=== PATIENT | male | born 1980 | race Caucasian/White ===

== ENCOUNTER 2016-10-31 14:47 | Inpatient (IN) | payer MEDICARE, OTHER ==
[~2016-10-31] VITALS: Ht 170.2 cm; Wt 94.4 kg
--- NOTE | 2016-10-31 15:17 | PHYS DOC ---
Adult General Chief Complaint Chief Complaint: SEIZURE HPI HPI Patient is a 36 year old male who presents with head neck and left rib pain after seizure. Patient has had seizures since a traumatic brain injury that usually are well controlled. His normal aura is short-term memory problems and headache. This afternoon he started to develop some short-term memory problems and headache while he was at the grocery store but did make it home. After arriving home he had onset of tonic-clonic activity lasted about 10 seconds that was witnessed by the . said that during the seizure he fell off the couch and struck his forehead midline on the table. He had approximate 10 minute postictal phase. On presentation to the emergency department the patient complains mostly of frontal headache pain with some mild midline C1-C2 neck pain. Patient also complains of some left lateral chest wall tenderness. Patient has had no recent fevers chills vomiting diarrhea visual changes or change in medications. Patient did have loss of control of his urine during the seizure.Patient had a short seizure while in radiology getting chest and rib xrays. Review of Systems Review of Systems Constitutional: Denies fever or chills Eyes: Denies change in visual acuity, redness, or eye pain HENT: Denies nasal congestion or sore throat Respiratory: Denies cough or shortness of breath Cardiovascular: No chest pain or palpitations other than left lateral chest wall GI: Denies abdominal pain, nausea, vomiting, bloody stools or diarrhea : Denies dysuria or hematuria . But did have loss of control of urine during seizure. Musculoskeletal: Denies back pain or joint pain other than neck and left rib cage Integument: Denies rash or skin lesions Neurologic: Denies focal weakness or sensory changes. Positive headache. Endocrine: Denies polyuria or polydipsia Current Medications Current Medications Current Medications Medications (Trade) Dose Ordered Sig/Vilma Start Time Stop Time Status Last Admin Dose Admin Hydromorphone HCl (Dilaudid) 2 mg STK-MED ONCE 10/31/16 16:19 10/31/16 16:20 DC Lorazepam (Ativan) 2 mg STK-MED ONCE 10/31/16 15:27 10/31/16 15:28 DC Allergies Allergies Allergies Coded Allergies Type Severity Reaction Last Updated Verified bupropion Allergy Unknown seizures 10/31/16 Yes Physical Exam Physical Exam Constitutional: Well developed, well nourished, mild acute distress, non-toxic appearance. HENT: Normocephalic, midline frontal head trauma , bilateral external ears normal, oropharynx moist, no oral exudates, nose normal. Eyes: PERRLA, EOMI, conjunctiva normal, no discharge. Neck: Normal range of motion, C2 midline tenderness, supple, no stridor. Cardiovascular:Heart rate regular rhythm, no murmur Lungs & Thorax: Bilateral breath sounds clear to auscultation. Left lateral inferior chest wall tenderness with no obvious deformity. Abdomen: Bowel sounds normal, soft, no tenderness, no masses, no pulsatile masses. Skin: Warm, dry, no erythema, no rash. Back: No tenderness, no CVA tenderness. Extremities: No tenderness, no cyanosis, , ROM intact, no edema. Prior left ankle repair. Neurologic: Alert and oriented X 3, normal motor function, normal sensory function, no focal deficits noted. Psychologic: Affect normal, judgement normal, mood normal. Current Patient Data Vital Signs Vital Signs Date Time Temp Pulse Resp B/P Pulse Ox O2 Delivery O2 Flow Rate FiO2 10/31/16 17:17 86 20 144/88 95 Room Air 10/31/16 14:47 97.4 97.4 Lab Values Laboratory Tests Test 10/31/16 17:27 White Blood Count 10.2x10^3/uL (4.0-11.0) Red Blood Count 4.65x10^6/uL (4.30-5.70) Hemoglobin 13.7g/dL (13.0-17.5) Hematocrit 41.0% (39.0-53.0) Mean Corpuscular Volume 88fL (79-100) Mean Corpuscular Hemoglobin 29pg (25-35) Mean Corpuscular Hemoglobin Concent 33g/dL (31-37) Red Cell Distribution Width 15.0% (11.5-14.5) H Platelet Count 190x10^3/uL (140-400) Neutrophils (%) (Auto) 48% (31-73) Lymphocytes (%) (Auto) 42% (24-48) Monocytes (%) (Auto) 7% (0-9) Eosinophils (%) (Auto) 2% (0-3) Basophils (%) (Auto) 1% (0-3) Neutrophils # (Auto) 4.9x10^3uL (1.8-7.7) Lymphocytes # (Auto) 4.3x10^3/uL (1.0-4.8) Monocytes # (Auto) 0.7x10^3/uL (0.0-1.1) Eosinophils # (Auto) 0.2x10^3/uL (0.0-0.7) Basophils # (Auto) 0.1x10^3/uL (0.0-0.2) Segmented Neutrophils % 43% (35-66) Band Neutrophils % 1% (0-9) Lymphocytes % 42% (24-48) Atypical Lymphocytes % (Manual) 3% (0-0) H Monocytes % 6% (0-10) Eosinophils % 2% (0-5) Metamyelocytes % 2% (0-0) H Myelocytes % 1% (0-0) H Nucleated Red Blood Cells 1 Platelet Estimate Adequate (ADEQUATE) Sodium Level 146mmol/L (136-145) H Potassium Level 3.7mmol/L (3.5-5.1) Chloride Level 108mmol/L (98-107) H Carbon Dioxide Level 27mmol/L (21-32) Anion Gap 11 (6-14) Blood Urea Nitrogen 15mg/dL (8-26) Creatinine 0.8mg/dL (0.7-1.3) Estimated GFR (Cockcroft-Gault) 108.8 BUN/Creatinine Ratio 19 (6-20) Glucose Level 84mg/dL (70-99) Calcium Level 8.3mg/dL (8.5-10.1) L Total Bilirubin 0.3mg/dL (0.2-1.0) Aspartate Amino Transferase (AST) 43U/L (15-37) H Alanine Aminotransferase (ALT) 81U/L (16-63) H Alkaline Phosphatase 73U/L (46-116) Total Protein 6.5g/dL (6.4-8.2) Albumin 3.2g/dL (3.4-5.0) L Albumin/Globulin Ratio 1.0 (1.0-1.7) Laboratory Tests 10/31/16 17:27 Laboratory Tests 10/31/16 17:27 EKG EKG [] Radiology/Procedures Radiology/Procedures [] Course & Med Decision Making Course & Med Decision Making Pertinent Labs and Imaging studies reviewed. (See chart for details) [] Dragon Disclaimer Dragon Disclaimer This electronic medical record was generated, in whole or in part, using a voice recognition dictation system. Departure Departure Impression: Primary Impression: Seizure Additional Impression: Headache Disposition: ADMITTED INPATIENT Admitting Physician: Jia Valdez Condition: IMPROVED Scripts Divalproex Sodium (Depakote Er)500 Mg Tab.er.24h1,500 Mg PO BID #120 EA Prov:SEEMA WHARTON MD 11/01/16 Carbamazepine 200 Mg Donilm910 Mg PO BID #60 TAB Prov:SEEMA WHARTON MD 11/01/16 Problem Qualifiers Additional Impression: Headache Headache type: post-traumatic Headache chronicity pattern: acute headache Intractability: not intractable Qualified Code: G44.319 - Acute post- traumatic headache, not intractable JAILENE DURAND MD Oct 31, 2016 15:17
[2016-10-31] MEDS ORDERED: LORAZEPAM 2 MG/ML VIAL ONE (15:27)
--- NOTE | 2016-10-31 15:48 | RAD ---
EXAM: Head and cervical spine CT without contrast. HISTORY: Seizure. TECHNIQUE: Computed tomographic images of the head and cervical spine were obtained without contrast. One or more of the following individualized dose reduction techniques were utilized for this examination: 1. Automated exposure control. 2. Adjustment of the mA and/or kV according to patient size. 3. Use of iterative reconstruction technique. COMPARISON: None. FINDINGS: Head: There is no acute hemorrhage. There is no mass effect or midline shift. There is no hydrocephalus. The sow and white matter differentiation pattern is intact. There is a right maxillary sinus mucous retention cyst. There is mild ethmoid sinus because of thickening. The mastoid air cells are clear. No calvarial lesion is seen. Cervical spine: There is no listhesis. The vertebral bodies are normal in height and the disc spaces are preserved. No fracture is seen. There is no suspicious osseous lesion. There is no significant foraminal or central canal stenosis. IMPRESSION: No acute intracranial finding or evidence of acute cervical spine trauma.
--- NOTE | 2016-10-31 15:55 | ACF ---
Admission Forms Criteria SEIZURE Clinical Indications for Admission to Inpatient Care (Place 'X' for any and all applicable criteria): Admission is indicated for seizure and ANY ONE of the following(1)(2)(3)(4)(5): [X]I. Inpatient admission required rather than observation care (Also use Seizure: Observation Care Criteria as appropriate) because of ANY ONE of the following: [ ]a) Altered mental status that is severe or persistent [ ]b) New focal neurologic deficit that is severe or persistent [ ]c) Metabolic disorder (eg, hypoglycemia, hyponatremia) that is severe or persistent [ ]d) Recurrent seizure [ ]e) Outpatient antiseizure regimen cannot be established (eg , patient cannot tolerate medication, initiation requires inpatient care) [ ]f) Need for ongoing intravenous infusion of antiseizure medication [ ]g) Cardiac arrhythmias of immediate concern [ ]h) Cerebral bleeding, hydrocephalus, or vasospasm monitoring (14) [ ]i) Increased intracranial pressure or cerebral edema monitoring (15) [X]j) Other treatment or monitoring requiring inpatient admission [ ]II. Status epilepticus [A] or repetitive seizures not controlled with emergent treatment (6)(8) [ ]III. Brain disorder (eg, tumor, edema, and hydrocephalus) that requiring monitoring or intervention available only at inpatient level of care. [ ]IV. Brain insult (eg, severe trauma, stroke, drug toxicity, or withdrawal) that requires monitoring or intervention available only at inpatient level of care (10)(11) Extended stay beyond goal length of stay may be needed for (22) [ ]a) Complications of status epilepticus [ ]b) Refractory status epilepticus [ ]c) Etiology-specific therapy for conditions such as HORTICULTURALIST infection, head injury,eclampsia, severe metabolic abnormalities, and brain tumor [ ]d) Residual neurologic damage, [ ]e) Initiation of significant change to anticonvulsant treatment [ ]f) Older patients (65 years or older) [ ]g) Patient requiring intubation (eg, to protect airway) The original [employer] content created by [employer] has been revised. The portions of the content which have been revised are identified through the use of italic text or in bold, and [facility] [employer] has neither reviewed nor approved the modified material. All other unmodified content is copyright [facility] [employer]. Please see references footnoted in the original [facility] edition 2016 Admission Criteria Met?: Yes SARAH JONES Oct 31, 2016 15:55
[2016-10-31] MEDS ORDERED: HYDROMORPHONE 2 MG/ML VIAL. ONE (16:19)
[2016-10-31] MEDS ORDERED: HYDROMORPHONE 2 MG/ML VIAL. IV ONE ×3 (16:30→18:45)
--- NOTE | 2016-10-31 16:54 | RAD ---
Exam: PA chest and left rib radiographs History: Trauma, seizure, fall with pain left ribs. Comparison: None. Findings: Cardiomediastinal silhouette is within normal limits for size. Bilateral lung lynn are free of focal infiltrate. No pleural effusion is seen. No displaced rib fractures are identified. Cholecystectomy clips are seen. Impression: No acute cardiopulmonary process.
[2016-10-31 17:36] LABS: BASO # 0.1 x10^3/uL (0.0-0.2); BASO % 1 % (0-3); EOS % 2 % (0-3); HEMOGLOBIN 13.7 g/dL (13.0-17.5); LYMPH # 4.3 x10^3/uL (1.0-4.8); LYMPH % 42 % (24-48); MEAN CORPUSCULAR HEMOGLOBIN 29 pg (25-35); MEAN CORPUSCULAR HGB CONC 33 g/dL (31-37); MEAN CORPUSCULAR VOLUME 88 fL (79-100); MONO % 7 % (0-9); NEUT % 48 % (31-73); PLATELET COUNT 190 x10^3/uL (140-400); RED BLOOD COUNT 4.65 x10^6/uL (4.30-5.70); WHITE BLOOD COUNT 10.2 x10^3/uL (4.0-11.0)
[2016-10-31] MEDS ORDERED: SERT100T8 PO (17:41)
[2016-10-31] MEDS ORDERED: DIVA500T9 PO (17:41)
[2016-10-31] MEDS ORDERED: NORT25CA PO (17:41)
[2016-10-31] MEDS ORDERED: DIAZEPAM10 MG PO (17:41)
[2016-10-31] MEDS ORDERED: LEVE750T13 PO (17:41)
[2016-10-31 17:53] LABS: CALCIUM 8.3 mg/dL (8.5-10.1); CREATININE 0.8 mg/dL (0.7-1.3); GFR 108.8; POTASSIUM 3.7 mmol/L (3.5-5.1)
[2016-10-31 17:58] LABS: ALBUMIN 3.2 g/dL (3.4-5.0); TOTAL BILIRUBIN 0.3 mg/dL (0.2-1.0); TOTAL PROTEIN 6.5 g/dL (6.4-8.2)
[2016-10-31 18:30] LABS: % EOS 2 % (0-5); NUCLEATED RBC 1; PLT ESTIMATE ADEQUATE (ADEQUATE)
[2016-10-31 19:50] VITALS: BP 113/86
[2016-10-31] MEDS ORDERED: HYDROCODONE/APAP 5/325MG TABLET. PO PRN (20:00)
[2016-10-31] MEDS ORDERED: ACETAMINOPHEN 325 MG TABLET. PO PRN (20:00)
[2016-10-31] MEDS ORDERED: LORAZEPAM 1 MG TABLET. PO PRN (20:00)
[2016-10-31] MEDS ORDERED: LORAZEPAM 2 MG/ML VIAL IV PRN (20:15)
[2016-10-31] MEDS: ONDANSETRON PF 4 MG/2 ML VIAL. IV PRN (20:21)
[2016-10-31 23:19] VITALS: BP 121/79
[2016-11-01 07:00] VITALS: BP 109/76
[2016-11-01] MEDS ORDERED: NORTRIPTYLINE 25 MG CAPSULE PO SCH (09:00)
[2016-11-01] MEDS ORDERED: LEVETIRACETAM 750 MG PO SCH (09:00)
[2016-11-01] MEDS ORDERED: SERTRALINE 50 MG TABLET. PO SCH ×2 (09:00)
[2016-11-01] MEDS ORDERED: DIVALPROEX EXTENDED RELEASE 500 MG TAB.ER.24H. PO SCH ×2 (09:00)
[2016-11-01] MEDS ORDERED: CARBAMAZEPINE 200 MG TABLET. PO SCH ×4 (09:00→21:00)
[2016-11-01] MEDS ORDERED: DIVALPROEX DELAYED RELEASE 500 MG TABLET.DR. PO SCH (09:00)
[2016-11-01] MEDS ORDERED: DIAZEPAM 5 MG TABLET PO SCH (09:00)
[2016-11-01] MEDS: ONDANSETRON PF 4 MG/2 ML VIAL. IV PRN (09:12)
--- NOTE | 2016-11-01 10:15 | PDOC2 ---
NEUROLOGY CONSULT Date of Admission Date of Admission DATE: 11/01/16 TIME: 10:07 Reason for Consult Reason for Consult: Epilepsy Referring Physician Referring Physician: Dr. Valdez Source Source: Caregiver, Chart review, Patient History of Present Illness History of Present Illness The patient is a 36-year-old right-handed male with posttraumatic epilepsy following traumatic brain injury while serving in the , 9 years ago. He had a skull fracture but did not require surgery. He has partial-complex and generalized convulsive seizures by description. He had 2 or 3 seizures yesterday. He is sleep deprived because his son is autistic and keeps him up. He denies noncompliance with medications, drugs, alcohol, or recent action. Usually he gets a headache after a seizure, but he also may have hit his head this time, so he does have a headache. Past Medical History CENTRAL NERVOUS SYSTEM: Seizure, Other (Traumatic brain injury) GI: Other ( anal fissure) Psych: Anxiety, Depression, Other ( posttraumatic stress disorder) Past Surgical History Past Surgical History: Other ( gastric sleeve) Family History Family History: No pertinent hx ( negative for epilepsy, parents are in good health) Social History Social History , disabled, no alcohol, tobacco, street drugs Current Medications Current Medications Current Medications Hydromorphone HCl (Dilaudid) 1 mg 1X ONCE IV Last administered on 10/31/16t 16 :23; Start 10/31/16 at 16:30; Stop 10/31/16 at 16:31; Status DC Lorazepam (Ativan) 2 mg STK-MED ONCE .ROUTE ; Start 10/31/16 at 15:27; Stop 10/05 at 15:28; Status DC Hydromorphone HCl (Dilaudid) 2 mg STK-MED ONCE .ROUTE ; Start 10/31/16 at 16:19 ; Stop 10/31/16 at 16:20; Status DC Hydromorphone HCl (Dilaudid) 1 mg 1X ONCE IV ; Start 10/31/16 at 18:15; Stop at 18:16; Status Cancel Hydromorphone HCl (Dilaudid) 1 mg 1X ONCE IV Last administered on 10/31/16t 18 :46; Start 10/31/16 at 18:45; Stop 10/31/16 at 18:46; Status DC Divalproex Sodium (Depakote) 500 mg DAILY PO ; Start 11/01/16 at 09:00; Stop at 09:00; Status DC Nortriptyline HCl (Pamelor) 25 mg DAILY PO Last administered on 11/01/16 09:12 ; Start 11/01/16 at 09:00 Diazepam (Valium) 10 mg DAILY PO Last administered on 11/01/16 09:14; Start at 09:00 Non-Formulary Medication 750 mg DAILY PO ; Start 11/01/16 at 09:00; Stop at 09:00; Status DC Sertraline HCl (Zoloft) 100 mg DAILY PO ; Start 11/01/16 at 09:00; Stop at 09:00; Status DC Acetaminophen/ Hydrocodone Bitart (Lortab 5/325) 1 tab PRN Q6HRS PRN PO PAIN Last administered on 11/01/16 04:36; Start 10/31/16 at 20:00 Acetaminophen (Tylenol) 650 mg PRN Q6HRS PRN PO MILD PAIN / TEMP Last administered on 11/01/16 09:12; Start 10/31/16 at 20:00 Ondansetron HCl (Zofran) 4 mg PRN Q6HRS PRN IV NAUSEA/VOMITING Last administered on 11/01/16 09:12; Start 10/31/16 at 20:00 Lorazepam (Ativan) 1 mg PRN Q4HRS PRN PO ANXIETY / AGITATION; Start 10/31/16 at 20:00; Stop 10/31/16 at 20:08; Status DC Lorazepam (Ativan) 2 mg PRN Q4HRS PRN IV ANXIETY / AGITATION Last administered on 10/31/16 20:21; Start 10/31/16 at 20:15 Divalproex Sodium (Depakote Er) 500 mg DAILY PO ; Start 11/01/16 at 09:00; Stop 11/01/16 at 09:00; Status DC Divalproex Sodium (Depakote Er) 1,500 mg BID PO Last administered on 11/01/16 09:12; Start 11/01/16 at 09:00 Sertraline HCl (Zoloft) 50 mg DAILY PO Last administered on 11/01/16 09:14; Start 11/01/16 at 09:00 Carbamazepine (Tegretol) 750 mg DAILY PO Last administered on 11/01/16 09:14; Start 11/01/16 at 09:00 Carbamazepine (Tegretol) 500 mg QHS PO ; Start 11/01/16 at 21:00 Active Scripts Active Reported Nortriptyline Hcl 25 Mg Capsule 25 Mg PO DAILY Sertraline Hcl 100 Mg Tablet 100 Mg PO DAILY Levetiracetam 750 Mg Tab.er.24h 750 Mg PO DAILY Diazepam 10 Mg Tablet 10 Mg PO DAILY Divalproex Sodium 500 Mg Tablet.dr 500 Mg PO DAILY Allergies Allergies: Coded Allergies: venlafaxine (Verified Allergy, Severe, Seizures, 10/31/16) bupropion (Verified Allergy, Unknown, seizures, 10/31/16) ROS Review of System Negative for fevers, chills, weight loss, shortness of breath, chest pain, indigestion, hematochezia, melena, dysuria. Full 14-point review systems is negative. Physical Exam Physical Examination PHYSICAL EXAMINATION: Vital signs: see above. General appearance is normal and in no acute distress. HEENT: Normocephalic and nontraumatic. Eyes, nose, ears, and throat are unremarkable. Neck is supple. No lymphadenopathy. No bruits are heard over the carotid artery. No crepitus. NEUROLOGICAL EXAMINATION: Mental Status Examination: Alert. Oriented to time, place, and person. Answers questions and follows commends. Speech is hesitant and he has trouble recounting his history. Pupils are equal round and reactive to light and accommodation. Funduscopic exam: No papilledema. Extraocular movements are intact. Visual field exam shows no defect on the direct confrontation. No motor or sensory deficits on the facial exam. Uvula in the midline and the soft palate elevated symmetrically. No deviation of the tongue to any direction. Gross hearing is normal. Shoulder shrug normal. Muscle tone is normal. Muscle strength is 5. Deep tendon reflexes are 2+ all around. Plantar reflex is with flexion response bilaterally. [id number] test performance is accurate. Alternative movements are accurate. Gait not tested. Sensory exam shows no deficits. No cerebellar signs are elicited. Vitals VITALS Vital Signs Date Time Temp Pulse Resp B/P Pulse Ox O2 Delivery O2 Flow Rate FiO2 11/01/16 07:00 97.9 87 16 109/76 99 Room Air 97.9 Labs Labs Laboratory Tests Test 10/31/16 17:27 White Blood Count 10.2x10^3/uL (4.0-11.0) Red Blood Count 4.65x10^6/uL (4.30-5.70) Hemoglobin 13.7g/dL (13.0-17.5) Hematocrit 41.0% (39.0-53.0) Mean Corpuscular Volume 88fL (79-100) Mean Corpuscular Hemoglobin 29pg (25-35) Mean Corpuscular Hemoglobin Concent 33g/dL (31-37) Red Cell Distribution Width 15.0% (11.5-14.5) Platelet Count 190x10^3/uL (140-400) Neutrophils (%) (Auto) 48% (31-73) Lymphocytes (%) (Auto) 42% (24-48) Monocytes (%) (Auto) 7% (0-9) Eosinophils (%) (Auto) 2% (0-3) Basophils (%) (Auto) 1% (0-3) Neutrophils # (Auto) 4.9x10^3uL (1.8-7.7) Lymphocytes # (Auto) 4.3x10^3/uL (1.0-4.8) Monocytes # (Auto) 0.7x10^3/uL (0.0-1.1) Eosinophils # (Auto) 0.2x10^3/uL (0.0-0.7) Basophils # (Auto) 0.1x10^3/uL (0.0-0.2) Segmented Neutrophils % 43% (35-66) Band Neutrophils % 1% (0-9) Lymphocytes % 42% (24-48) Atypical Lymphocytes % (Manual) 3% (0-0) Monocytes % 6% (0-10) Eosinophils % 2% (0-5) Metamyelocytes % 2% (0-0) Myelocytes % 1% (0-0) Nucleated Red Blood Cells 1 Platelet Estimate Adequate (ADEQUATE) Sodium Level 146mmol/L (136-145) Potassium Level 3.7mmol/L (3.5-5.1) Chloride Level 108mmol/L (98-107) Carbon Dioxide Level 27mmol/L (21-32) Anion Gap 11 (6-14) Blood Urea Nitrogen 15mg/dL (8-26) Creatinine 0.8mg/dL (0.7-1.3) Estimated GFR (Cockcroft-Gault) 108.8 BUN/Creatinine Ratio 19 (6-20) Glucose Level 84mg/dL (70-99) Calcium Level 8.3mg/dL (8.5-10.1) Total Bilirubin 0.3mg/dL (0.2-1.0) Aspartate Amino Transf (AST/SGOT) 43U/L (15-37) Alanine Aminotransferase (ALT/SGPT) 81U/L (16-63) Alkaline Phosphatase 73U/L (46-116) Total Protein 6.5g/dL (6.4-8.2) Albumin 3.2g/dL (3.4-5.0) Albumin/Globulin Ratio 1.0 (1.0-1.7) Laboratory Tests Test 10/31/16 17:27 White Blood Count 10.2x10^3/uL (4.0-11.0) Red Blood Count 4.65x10^6/uL (4.30-5.70) Hemoglobin 13.7g/dL (13.0-17.5) Hematocrit 41.0% (39.0-53.0) Mean Corpuscular Volume 88fL (79-100) Mean Corpuscular Hemoglobin 29pg (25-35) Mean Corpuscular Hemoglobin Concent 33g/dL (31-37) Red Cell Distribution Width 15.0% (11.5-14.5) Platelet Count 190x10^3/uL (140-400) Neutrophils (%) (Auto) 48% (31-73) Lymphocytes (%) (Auto) 42% (24-48) Monocytes (%) (Auto) 7% (0-9) Eosinophils (%) (Auto) 2% (0-3) Basophils (%) (Auto) 1% (0-3) Neutrophils # (Auto) 4.9x10^3uL (1.8-7.7) Lymphocytes # (Auto) 4.3x10^3/uL (1.0-4.8) Monocytes # (Auto) 0.7x10^3/uL (0.0-1.1) Eosinophils # (Auto) 0.2x10^3/uL (0.0-0.7) Basophils # (Auto) 0.1x10^3/uL (0.0-0.2) Segmented Neutrophils % 43% (35-66) Band Neutrophils % 1% (0-9) Lymphocytes % 42% (24-48) Atypical Lymphocytes % (Manual) 3% (0-0) Monocytes % 6% (0-10) Eosinophils % 2% (0-5) Metamyelocytes % 2% (0-0) Myelocytes % 1% (0-0) Nucleated Red Blood Cells 1 Platelet Estimate Adequate (ADEQUATE) Sodium Level 146mmol/L (136-145) Potassium Level 3.7mmol/L (3.5-5.1) Chloride Level 108mmol/L (98-107) Carbon Dioxide Level 27mmol/L (21-32) Anion Gap 11 (6-14) Blood Urea Nitrogen 15mg/dL (8-26) Creatinine 0.8mg/dL (0.7-1.3) Estimated GFR (Cockcroft-Gault) 108.8 BUN/Creatinine Ratio 19 (6-20) Glucose Level 84mg/dL (70-99) Calcium Level 8.3mg/dL (8.5-10.1) Total Bilirubin 0.3mg/dL (0.2-1.0) Aspartate Amino Transf (AST/SGOT) 43U/L (15-37) Alanine Aminotransferase (ALT/SGPT) 81U/L (16-63) Alkaline Phosphatase 73U/L (46-116) Total Protein 6.5g/dL (6.4-8.2) Albumin 3.2g/dL (3.4-5.0) Albumin/Globulin Ratio 1.0 (1.0-1.7) Images Images CT studies Head: There is no acute hemorrhage. There is no mass effect or midline shift. There is no hydrocephalus. The sow and white matter differentiation pattern is intact. There is a right maxillary sinus mucous retention cyst. There is mild ethmoid sinus because of thickening. The mastoid air cells are clear. No calvarial lesion is seen. Cervical spine: There is no listhesis. The vertebral bodies are normal in height and the disc spaces are preserved. No fracture is seen. There is no suspicious osseous lesion. There is no significant foraminal or central canal stenosis. IMPRESSION: No acute intracranial finding or evidence of acute cervical spine trauma. Assessment/Plan Assessment/Plan Impression: [facility]. Imaging studies negative, anticonvulsant levels were not drawn. Recommendations: I wrote for the correct dose of his anticonvulsants per the patient's although I note that the carbamazepine dose is unusual Check anticonvulsant levels now, even though these will be trough levels Supportive care for his headaches Aim for discharge as soon as later today depending on how he feels. Thank you for letting me help of the patient's care. ANGELINE JEAN MD Nov 01, 2016 10:15
[2016-11-01 11:00] VITALS: BP 105/70
[2016-11-01 13:00] VITALS: BP 118/83
--- NOTE | 2016-11-01 14:41 | PDOC1 ---
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 per Neuro - partial-complex and generalized convulsive seizures fall and chest pain and wrist pain . Past Medical History Cardiovascular: No pertinent hx Pulmonary: No pertinent hx CENTRAL NERVOUS SYSTEM: Seizure, Other (Traumatic brain injury) GI: Other ( anal fissure) Psych: Anxiety, Depression, Other ( posttraumatic stress disorder) ENT: No pertinent hx Past Surgical History Past Surgical History: Other ( gastric sleeve) Family History Family History , 2 kids, disabled due to above Social History Smoke: No ALCOHOL: none Drugs: None Current Problem List Problem List Problems Medical Problems: (1) Headache Status: Acute (2) Seizure Status: Acute Problems: Current Medications Current Medications Current Medications Hydromorphone HCl (Dilaudid) 1 mg 1X ONCE IV Last administered on 10/31/16 16 :23; Start 10/31/16 at 16:30; Stop 10/31/16 at 16:31; Status DC Lorazepam (Ativan) 2 mg STK-MED ONCE .ROUTE ; Start 10/31/16 at 15:27; Stop 10/05 at 15:28; Status DC Hydromorphone HCl (Dilaudid) 2 mg STK-MED ONCE .ROUTE ; Start 10/31/16 at 16:19 ; Stop 10/31/16 at 16:20; Status DC Hydromorphone HCl (Dilaudid) 1 mg 1X ONCE IV ; Start 10/31/16 at 18:15; Stop at 18:16; Status Cancel Hydromorphone HCl (Dilaudid) 1 mg 1X ONCE IV Last administered on 10/31/16 18 :46; Start 10/31/16 at 18:45; Stop 10/31/16 at 18:46; Status DC Divalproex Sodium (Depakote) 500 mg DAILY PO ; Start 11/01/16 at 09:00; Stop at 09:00; Status DC Nortriptyline HCl (Pamelor) 25 mg DAILY PO Last administered on 11/01/16 09:12 ; Start 11/01/16 at 09:00 Diazepam (Valium) 10 mg DAILY PO Last administered on 11/01/16 09:14; Start at 09:00 Non-Formulary Medication 750 mg DAILY PO ; Start 11/01/16 at 09:00; Stop at 09:00; Status DC Sertraline HCl (Zoloft) 100 mg DAILY PO ; Start 11/01/16 at 09:00; Stop at 09:00; Status DC Acetaminophen/ Hydrocodone Bitart (Lortab 5/325) 1 tab PRN Q6HRS PRN PO PAIN Last administered on 11/01/16 04:36; Start 10/31/16 at 20:00 Acetaminophen (Tylenol) 650 mg PRN Q6HRS PRN PO MILD PAIN / TEMP Last administered on 11/01/16 09:12; Start 10/31/16 at 20:00 Ondansetron HCl (Zofran) 4 mg PRN Q6HRS PRN IV NAUSEA/VOMITING Last administered on 11/01/16 09:12; Start 10/31/16 at 20:00 Lorazepam (Ativan) 1 mg PRN Q4HRS PRN PO ANXIETY / AGITATION; Start 10/31/16 at 20:00; Stop 10/31/16 at 20:08; Status DC Lorazepam (Ativan) 2 mg PRN Q4HRS PRN IV ANXIETY / AGITATION Last administered on 10/31/16 20:21; Start 10/31/16 at 20:15 Divalproex Sodium (Depakote Er) 500 mg DAILY PO ; Start 11/01/16 at 09:00; Stop 11/01/16 at 09:00; Status DC Divalproex Sodium (Depakote Er) 1,500 mg BID PO Last administered on 11/01/16 09:12; Start 11/01/16 at 09:00 Sertraline HCl (Zoloft) 50 mg DAILY PO Last administered on 11/01/16 09:14; Start 11/01/16 at 09:00 Carbamazepine (Tegretol) 750 mg DAILY PO Last administered on 11/01/16 09:14; Start 11/01/16 at 09:00; Stop 11/01/16 at 12:35; Status DC Carbamazepine (Tegretol) 500 mg QHS PO ; Start 11/01/16 at 21:00; Stop 11/01/16 at 21:00; Status DC Carbamazepine (Tegretol) 750 mg QHS PO ; Start 11/01/16 at 21:00; Stop 11/01/16 at 21:00; Status DC Carbamazepine (Tegretol) 750 mg BID PO ; Start 11/01/16 at 21:00 Active Scripts Active Reported Nortriptyline Hcl 25 Mg Capsule 25 Mg PO DAILY Sertraline Hcl 100 Mg Tablet 100 Mg PO DAILY Levetiracetam 750 Mg Tab.er.24h 750 Mg PO DAILY Diazepam 10 Mg Tablet 10 Mg PO DAILY Divalproex Sodium 500 Mg Tablet.dr 500 Mg PO DAILY Allergies Allergies: Coded Allergies: venlafaxine (Verified Allergy, Severe, Seizures, 10/31/16) bupropion (Verified Allergy, Unknown, seizures, 10/31/16) ROS General: No: Appetite, Chills, Fatigue, Malaise, Night Sweats, Other PSYCHOLOGICAL ROS: No: Anxiety, Behavioral Disorder, Concentration difficultie , Decreased libido, Depression, Disorientation, Hallucinations, Hostility, Irritablity, Memory difficulties, Mood Swings, Obsessive thoughts, Other, Physical abuse, Sexual abuse, Sleep disturbances, Suicidal ideation Eyes: No Blurry vision, No Decreased vision, No Double vision, No Dry eyes, No Excessive tearing, No Eye Pain, No Itchy Eyes, No Loss of vision, No Other, No Photophobia, No Scotomata, No Uses contacts, No Uses glasses HEENT: No: Epistaxis, Heacaches, Hearing change, Nasal congestion, Nasal discharge, Oral lesions, Other, Sinus pain, Sneezing, Snoring, Sore Throat, Tinnitus, Vertigo, Visual Changes, Vocal changes Cardiovascular: No Chest Pain, No Edema, No Lt Headedness, No Orthopnea, No Other, No Palpitations, No Paroxysmal Noc. Dyspnea Gastrointestinal: No Abdominal Pain, No Constipation, No Diarrhea, No Hematochezia, No Melena, No Nausea, No Other, No Vomiting Genitourinary: No , No , No , No , No , No , No , No Discharge, No Dysuria, No Flank Pain, No Frequency, No Hematuria, No Incontinence, No Other, No Pain, No Retention, No Urgency Neurological: No Behavorial Changes, No Bowel/Bladder ControlChng, No Confusion , No Dizziness, No Gait Disturbance, No Headaches, No Impaired Coord/balance, No Memory Loss, No Numbness/Tingling, No Other, No Seizures, No Speech Problems , No Tremors, No Visual Changes, No Weakness Skin: No Acne, No Dry Skin, No Eczema, No Hair Changes, No Lumps, No Mole Changes, No Mottling, No Nail Changes, No Other, No Pruritus, No Rash, No Skin Lesion Changes Physical Exam General: Alert, Oriented X3, Cooperative, No acute distress, Other (poor recall ) HEENT: EOMI, Mucous membr. moist/pink Lungs: Clear to auscultation Heart: S1S2 Abdomen: Normal bowel sounds, Soft Rectal Exam: not examined, deferred Extremities: No cyanosis Skin: No rashes Neuro: Normal speech, Sensation intact Psych/Mental Status: Mental status NL, Mood NL Vitals Vitals Vital Signs Date Time Temp Pulse Resp B/P Pulse Ox O2 Delivery O2 Flow Rate FiO2 11/01/16 11:00 97.9 88 16 105/70 98 Room Air 97.9 Labs Labs Laboratory Tests Test 10/31/16 17:27 11/01/16 11:10 White Blood Count 10.2x10^3/uL (4.0-11.0) Red Blood Count 4.65x10^6/uL (4.30-5.70) Hemoglobin 13.7g/dL (13.0-17.5) Hematocrit 41.0% (39.0-53.0) Mean Corpuscular Volume 88fL (79-100) Mean Corpuscular Hemoglobin 29pg (25-35) Mean Corpuscular Hemoglobin Concent 33g/dL (31-37) Red Cell Distribution Width 15.0% (11.5-14.5) Platelet Count 190x10^3/uL (140-400) Neutrophils (%) (Auto) 48% (31-73) Lymphocytes (%) (Auto) 42% (24-48) Monocytes (%) (Auto) 7% (0-9) Eosinophils (%) (Auto) 2% (0-3) Basophils (%) (Auto) 1% (0-3) Neutrophils # (Auto) 4.9x10^3uL (1.8-7.7) Lymphocytes # (Auto) 4.3x10^3/uL (1.0-4.8) Monocytes # (Auto) 0.7x10^3/uL (0.0-1.1) Eosinophils # (Auto) 0.2x10^3/uL (0.0-0.7) Basophils # (Auto) 0.1x10^3/uL (0.0-0.2) Segmented Neutrophils % 43% (35-66) Band Neutrophils % 1% (0-9) Lymphocytes % 42% (24-48) Atypical Lymphocytes % (Manual) 3% (0-0) Monocytes % 6% (0-10) Eosinophils % 2% (0-5) Metamyelocytes % 2% (0-0) Myelocytes % 1% (0-0) Nucleated Red Blood Cells 1 Platelet Estimate Adequate (ADEQUATE) Sodium Level 146mmol/L (136-145) Potassium Level 3.7mmol/L (3.5-5.1) Chloride Level 108mmol/L (98-107) Carbon Dioxide Level 27mmol/L (21-32) Anion Gap 11 (6-14) Blood Urea Nitrogen 15mg/dL (8-26) Creatinine 0.8mg/dL (0.7-1.3) Estimated GFR (Cockcroft-Gault) 108.8 BUN/Creatinine Ratio 19 (6-20) Glucose Level 84mg/dL (70-99) Calcium Level 8.3mg/dL (8.5-10.1) Total Bilirubin 0.3mg/dL (0.2-1.0) Aspartate Amino Transf (AST/SGOT) 43U/L (15-37) Alanine Aminotransferase (ALT/SGPT) 81U/L (16-63) Alkaline Phosphatase 73U/L (46-116) Total Protein 6.5g/dL (6.4-8.2) Albumin 3.2g/dL (3.4-5.0) Albumin/Globulin Ratio 1.0 (1.0-1.7) Valproic Acid (Depakene) Level 87mcg/mL (50-100) Valproic Acid Last Dose Date 11/01/06 Valproic Acid Last Dose Time 0900 Carbamazepine (Tegretol) Level 3.8mcg/mL (4.0-12.0) Carbamazepine Last Dose Date 11/01/16 Carbamazepine Last Dose Time 0900 Laboratory Tests Test 10/31/16 17:27 11/01/16 11:10 White Blood Count 10.2x10^3/uL (4.0-11.0) Red Blood Count 4.65x10^6/uL (4.30-5.70) Hemoglobin 13.7g/dL (13.0-17.5) Hematocrit 41.0% (39.0-53.0) Mean Corpuscular Volume 88fL (79-100) Mean Corpuscular Hemoglobin 29pg (25-35) Mean Corpuscular Hemoglobin Concent 33g/dL (31-37) Red Cell Distribution Width 15.0% (11.5-14.5) Platelet Count 190x10^3/uL (140-400) Neutrophils (%) (Auto) 48% (31-73) Lymphocytes (%) (Auto) 42% (24-48) Monocytes (%) (Auto) 7% (0-9) Eosinophils (%) (Auto) 2% (0-3) Basophils (%) (Auto) 1% (0-3) Neutrophils # (Auto) 4.9x10^3uL (1.8-7.7) Lymphocytes # (Auto) 4.3x10^3/uL (1.0-4.8) Monocytes # (Auto) 0.7x10^3/uL (0.0-1.1) Eosinophils # (Auto) 0.2x10^3/uL (0.0-0.7) Basophils # (Auto) 0.1x10^3/uL (0.0-0.2) Segmented Neutrophils % 43% (35-66) Band Neutrophils % 1% (0-9) Lymphocytes % 42% (24-48) Atypical Lymphocytes % (Manual) 3% (0-0) Monocytes % 6% (0-10) Eosinophils % 2% (0-5) Metamyelocytes % 2% (0-0) Myelocytes % 1% (0-0) Nucleated Red Blood Cells 1 Platelet Estimate Adequate (ADEQUATE) Sodium Level 146mmol/L (136-145) Potassium Level 3.7mmol/L (3.5-5.1) Chloride Level 108mmol/L (98-107) Carbon Dioxide Level 27mmol/L (21-32) Anion Gap 11 (6-14) Blood Urea Nitrogen 15mg/dL (8-26) Creatinine 0.8mg/dL (0.7-1.3) Estimated GFR (Cockcroft-Gault) 108.8 BUN/Creatinine Ratio 19 (6-20) Glucose Level 84mg/dL (70-99) Calcium Level 8.3mg/dL (8.5-10.1) Total Bilirubin 0.3mg/dL (0.2-1.0) Aspartate Amino Transf (AST/SGOT) 43U/L (15-37) Alanine Aminotransferase (ALT/SGPT) 81U/L (16-63) Alkaline Phosphatase 73U/L (46-116) Total Protein 6.5g/dL (6.4-8.2) Albumin 3.2g/dL (3.4-5.0) Albumin/Globulin Ratio 1.0 (1.0-1.7) Valproic Acid (Depakene) Level 87mcg/mL (50-100) Valproic Acid Last Dose Date 11/01/06 Valproic Acid Last Dose Time 0900 Carbamazepine (Tegretol) Level 3.8mcg/mL (4.0-12.0) Carbamazepine Last Dose Date 11/01/16 Carbamazepine Last Dose Time 0900 VTE Prophylaxis Ordered VTE Prophylaxis Devices: No VTE Pharmacological Prophylaxi: Yes Assessment/Plan Assessment/Plan seizure, traumatic seizure d/o, tegretol level low, dose increased to 750 BID cleared by Neuro f/u [facility] depression, anxiety - stable hypernatremia mild malnutrition by labs, obesity, BMI 32 SEEMA WHARTON MD Nov 01, 2016 14:41
[2016-11-01 15:00] VITALS: BP 118/83
[2016-11-01] MEDS ORDERED: CARB200T4 PO (15:34)
[2016-11-01] MEDS ORDERED: DIVA500T4 PO (15:34)
== END 2016-11-01 18:00 | disposition home or self-care (01) | DRG 101 ==
LOC: ER 14:49 → 6 SOUTH 18:09
PROVIDERS: ADMIT Internal Medicine; ATTEND Internal Medicine
DX: R56.1 Post traumatic seizures (principal); E44.1 Mild protein-calorie malnutrition; E87.0 Hyperosmolality and hypernatremia; E66.9 Obesity, unspecified; F32.9 Major depressive disorder, single episode, unspecified; K60.2 Anal fissure, unspecified; F41.9 Anxiety disorder, unspecified; F43.10 Post-traumatic stress disorder, unspecified; Z68.32 Body mass index [BMI] 32.0-32.9, adult; Z72.820 Sleep deprivation; Z88.8 Allergy status to other drugs, medicaments and biological substances
CPT/HCPCS: 36415; 70450; 71101; 72125; 80053; 80156; 80164; 85007; 85027; 96374; 96376; J1170; J2060; J2405; 99285-25

== ENCOUNTER 2016-11-07 12:25 | Emergency (ER) | payer MEDICARE, OTHER ==
[~2016-11-07] VITALS: Ht 167.6 cm; Wt 90.7 kg
[~2016-11-07 12:25] MED LIST: CARB200T4 PO; DIAZEPAM10 MG PO; DIVA500T4 PO; DIVA500T9 PO; LEVE750T13 PO; NORT25CA PO; SERT100T8 PO
[2016-11-07] MEDS ORDERED: ACETAMINOPHEN 500 MG TABLET PO ONE (13:00)
[2016-11-07] MEDS ORDERED: ONDANSETRON PF 4 MG/2 ML VIAL. IV ONE (13:30)
[2016-11-07 13:36] LABS: ANION GAP 11 (6-14); BLOOD UREA NITROGEN 16 mg/dL (8-26); CALCIUM 8.7 mg/dL (8.5-10.1); CARBON DIOXIDE 24 mmol/L (21-32); CHLORIDE 109 mmol/L (98-107); CREATININE 0.9 mg/dL (0.7-1.3); GLUCOSE 90 mg/dL (70-99); POTASSIUM 4.1 mmol/L (3.5-5.1); SODIUM 144 mmol/L (136-145)
[2016-11-07] MEDS ORDERED: CARBAMAZEPINE 200 MG TABLET. PO ONE (14:15)
--- NOTE | 2016-11-07 14:40 | PHYS DOC ---
Past Medical History Past Medical History: Anxiety, Depression, Migraines, Seizure, Other Additional Past Medical Histor: TBI,PTSD,BLIND IN LEFT EYE,MIGRALEPSY Past Surgical History: Appendectomy, Cholecystectomy, Other Additional Past Surgical Histo: L)ankle, Bairiatric surgery-sleeve Alcohol Use: None Drug Use: None Adult General Chief Complaint Chief Complaint: SEIZURE HPI HPI Patient is a 36 year old male who presents with with seizure activity from home. He reportedly had his third seizure prior to EMS being called. This seizure looked exactly like prior seizure activity according to family has reported by EMS. He is supposed take carbamazepine and Depakote, of which he thinks he took at 9 AM this morning. He states he has generalized headache and nausea that he usually has after his seizures. He denies changes, nausea or vomiting, diarrhea, abdominal pain, numbness, tingling, weakness. He states his helps him with his medications. Review of Systems Review of Systems Constitutional: Denies fever or chills [] Eyes: Denies change in visual acuity, redness, or eye pain [] HENT: Denies nasal congestion or sore throat [] Respiratory: Denies cough or shortness of breath [] Cardiovascular: No additional information not addressed in HPI [] GI: Denies abdominal pain, vomiting, bloody stools or diarrhea [] : Denies dysuria or hematuria [] Musculoskeletal: Denies back pain or joint pain [] Integument: Denies rash or skin lesions [] Neurologic: Denies focal weakness or sensory changes [] Endocrine: Denies polyuria or polydipsia [] Current Medications Current Medications Current Medications Medications (Trade) Dose Ordered Sig/[facility] Start Time Stop Time Status Last Admin Dose Admin Acetaminophen (Tylenol) 500 mg 1X ONCE 11/07/16 13:00 11/07/16 13:01 DC 11/07/16 13:07 500 MG Carbamazepine (Tegretol) 600 mg 1X ONCE 11/07/16 14:15 11/07/16 14:16 DC 11/07/16 14:19 600 MG Ketorolac Tromethamine (Toradol) 10 mg 1X ONCE 11/07/16 15:15 11/07/16 15:16 DC 11/07/16 15:22 10 MG Ondansetron HCl (Zofran) 4 mg 1X ONCE 11/07/16 13:30 11/07/16 13:31 DC 11/07/16 13:32 4 MG Allergies Allergies Allergies Coded Allergies Type Severity Reaction Last Updated Verified venlafaxine Allergy Severe Seizures 10/31/16 Yes bupropion Allergy Unknown seizures 10/31/16 Yes Physical Exam Physical Exam Constitutional: Well developed, well nourished, no acute distress, non-toxic appearance. [] HENT: Normocephalic, atraumatic, bilateral external ears normal, oropharynx moist, no oral exudates, nose normal. [] Eyes: PERRLA, EOMI. [] Neck: Normal range of motion, supple. [] Cardiovascular:Heart rate regular rhythm [] Lungs & Thorax: Bilateral breath sounds clear to auscultation [] Abdomen: Bowel sounds normal, soft, no tenderness. [] Skin: Warm, dry, no erythema, no rash. [] Back: Normal range of motion. [] Extremities: No tenderness, ROM intact, no edema. [] Neurologic: Alert and oriented X 3, normal motor function, normal sensory function, no focal deficits noted, cranial nerves II through XII intact. [] Psychologic: Affect normal, judgement normal, mood normal. [] Current Patient Data Vital Signs Vital Signs Date Time Temp Pulse Resp B/P Pulse Ox O2 Delivery O2 Flow Rate FiO2 11/07/16 14:57 88 16 106/67 98 Room Air 11/07/16 12:25 97.5 97.5 Lab Values Laboratory Tests Test 11/07/16 13:01 Sodium Level 144mmol/L (136-145) Potassium Level 4.1mmol/L (3.5-5.1) Chloride Level 109mmol/L (98-107) H Carbon Dioxide Level 24mmol/L (21-32) Anion Gap 11 (6-14) Blood Urea Nitrogen 16mg/dL (8-26) Creatinine 0.9mg/dL (0.7-1.3) Estimated GFR (Cockcroft-Gault) 95.0 Glucose Level 90mg/dL (70-99) Calcium Level 8.7mg/dL (8.5-10.1) Valproic Acid Level 78mcg/mL (50-100) Valproic Acid Last Dose Date 11/07/16 Valproic Acid Last Dose Time 0900 Carbamazepine (Tegretol) Level 0.5mcg/mL (4.0-12.0) L Carbamazepine Last Dose Date 11/07/16 Carbamazepine Last Dose Time 0900 Laboratory Tests 11/07/16 13:01 Course & Med Decision Making Course & Med Decision Making Pertinent Labs and Imaging studies reviewed. (See chart for details) He has a low carbamazepine level, but his laboratory evaluation is otherwise unremarkable. He has no further seizure episodes. He is tolerating po intake and his is here to take him home. Return precautions given. He and understand and agree with plan. Dragon Disclaimer Dragon Disclaimer This electronic medical record was generated, in whole or in part, using a voice recognition dictation system. Departure Departure Impression: Primary Impression: Seizure Additional Impression: Headache Disposition: HOME, SELF-CARE Condition: STABLE Referrals: UNKNOWN PCP NAME (PCP) Patient Instructions: Seizure, Adult, [id number] Additional Instructions: Follow-up with your primary care doctor and neurology clinic within one week. Return for any concerns. Problem Qualifiers Additional Impression: Headache Headache type: unspecified Headache chronicity pattern: episodic headache Intractability: not intractable Qualified Code: R51 - Headache Pema TSAI MD Nov 07, 2016 14:40
[2016-11-07 14:57] VITALS: BP 106/67
[2016-11-07] MEDS ORDERED: KETOROLAC TROMETHAMINE 30 MG/ML SYRINGE. IV ONE (15:15)
== END 2016-11-07 15:41 | disposition home or self-care (01) ==
LOC: ER 12:25
DX: R56.9 Unspecified convulsions (principal); R51 Headache; F41.9 Anxiety disorder, unspecified; F32.9 Major depressive disorder, single episode, unspecified; H54.42 Blindness, left eye, normal vision right eye; F43.10 Post-traumatic stress disorder, unspecified; Z87.820 Personal history of traumatic brain injury; Z88.8 Allergy status to other drugs, medicaments and biological substances; Z79.899 Other long term (current) drug therapy
CPT/HCPCS: 36415; 80048; 80156; 80164; 96374; 96375; 99284; J1885; J2405

== ENCOUNTER 2017-07-26 17:50 | Inpatient (IN) | payer MEDICARE, OTHER ==
[2017-07-26] VITALS (8 sets, daily range): BP systolic 118–136; BP diastolic 65–85
[~2017-07-26] VITALS: Ht 170.2 cm; Wt 90.7 kg
[2017-07-26] MEDS ORDERED: 0.9 % SODIUM CHLORIDE 10 ML DISP.SYRIN. IV PRN (18:15)
[2017-07-26 18:16] LABS: BASO # 0.1 x10^3/uL (0.0-0.2); BASO % 1 % (0-3); EOS % 2 % (0-3); HEMOGLOBIN 14.8 g/dL (13.0-17.5); LYMPH # 6.2 x10^3/uL (1.0-4.8); LYMPH % 45 % (24-48); MEAN CORPUSCULAR HEMOGLOBIN 30 pg (25-35); MEAN CORPUSCULAR HGB CONC 32 g/dL (31-37); MEAN CORPUSCULAR VOLUME 92 fL (79-100); MONO % 8 % (0-9); NEUT % 45 % (31-73); PLATELET COUNT 269 x10^3/uL (140-400); RED BLOOD COUNT 4.99 x10^6/uL (4.30-5.70); RED CELL DISTRIBUTION WIDTH 15.8 % (11.5-14.5); WHITE BLOOD COUNT 13.7 x10^3/uL (4.0-11.0)
[2017-07-26 18:26] LABS: PROTHROMBIN TIME PATIENT 12.6 SEC (11.7-14.0)
[2017-07-26 18:27] LABS: ANION GAP 21 (6-14); BLOOD UREA NITROGEN 15 mg/dL (8-26); CALCIUM 8.9 mg/dL (8.5-10.1); CARBON DIOXIDE 22 mmol/L (21-32); CHLORIDE 105 mmol/L (98-107); CREATININE 1.1 mg/dL (0.7-1.3); GFR 75.3; GLUCOSE 96 mg/dL (70-99); POTASSIUM 3.5 mmol/L (3.5-5.1); SODIUM 148 mmol/L (136-145)
[2017-07-26 18:32] LABS: ALBUMIN 3.7 g/dL (3.4-5.0); ALK PHOS 99 U/L (46-116); ALT (SGPT) 140 U/L (16-63); AST (SGOT) 72 U/L (15-37); DIRECT BILIRUBIN < 0.1 mg/dL (0.0-0.2); TOTAL BILIRUBIN 0.2 mg/dL (0.2-1.0); TOTAL PROTEIN 7.8 g/dL (6.4-8.2)
[2017-07-26 19:29] LABS: BARBITURATES NEG (NEG); BENZODIAZEPINES POS (NEG); CANNABINOIDS NEG (NEG); COCAINE NEG (NEG); METHADONE NEG (NEG); OPIATES NEG (NEG); PHENCYCLIDINE NEG (NEG)
[2017-07-26] MEDS ORDERED: NORMAL SALINE IV ONE (19:30)
[2017-07-26] MEDS ORDERED: FOSPHENYTOIN IV ONE (19:30)
[2017-07-26] MEDS ORDERED: MORPHINE SULFATE 2 MG/ML DISP.SYRIN. IV PRN (20:00)
[2017-07-26] MEDS ORDERED: ONDANSETRON PF 4 MG/2 ML VIAL. IV PRN (20:00)
--- NOTE | 2017-07-26 20:28 | PHYS DOC ---
Past Medical History Past Medical History: Anxiety, Depression, Migraines, Seizure, Other Additional Past Medical Histor: TBI,PTSD,BLIND IN LEFT EYE,MIGRALEPSY Past Surgical History: Appendectomy, Cholecystectomy, Other Additional Past Surgical Histo: L)ankle, Bairiatric surgery-sleeve Alcohol Use: None Drug Use: None Adult General Chief Complaint Chief Complaint: SEIZURE HPI HPI 36-year-old male presenting to the emergency department after having a seizure today. He has a history of seizures and currently takes carbamazepine and phenytoin at home. The seizure lasted for about 45-30 seconds. The patient's father is here with the patient today. He reports the patient was postictal for a short period and then returned to baseline. He denies any pain. Currently he is feeling better. Review of systems is negative for fevers chills neck stiffness confusion cyanosis lethargy chest pain shortness of breath or abdominal pain. All other review of systems is negative unless otherwise noted in history of present illness. ED course: 36-year-old male presenting to the emergency department after having a seizure. Here in the emergency department the patient initially had a seizure as well. It lasted for about 30 seconds and then the patient began improving with a postictal period. I initiated IV Keppra initially for antiepileptic medication. I discussed the case with Dr. De La Vega who recommended adding fosphenytoin given the patient's phenytoin level. The patient had a second seizure here that lasted about 30 seconds. The patient did not require benzodiazepines for seizures here. Fosphenytoin initiated when the patient had a bad reaction. He described a burning sensation in his buttocks and chest. I discussed the case with Dr. García for the second time and agrees that this is a side effect of the medication and we can decrease the rate of the medications administration which will decrease the side effects. The patient was then admitted to the ICU for further evaluation workup and care. The patient returned to baseline after each seizure and was not in status epilepticus. Review of Systems Review of Systems SEE ABOVE. Current Medications Current Medications Current Medications Medications (Trade) Dose Ordered Sig/[facility] Start Time Stop Time Status Last Admin Dose Admin Levetiracetam 1000 mg/Sodium Chloride 110 ml @ 440 mls/hr 1X ONCE 07/26/17 18:15 07/26/17 18:29 DC 07/26/17 18:16 440 MLS/HR Sodium Chloride (Normal Saline Flush) 10 ml QSHIFT PRN 07/26/17 18:15 07/26/17 18:16 10 ML Allergies Allergies Allergies Coded Allergies Type Severity Reaction Last Updated Verified venlafaxine Allergy Severe Seizures 10/31/16 Yes bupropion Allergy Unknown seizures 10/31/16 Yes Physical Exam Physical Exam SEE ABOVE Constitutional: Well developed, well nourished, no acute distress, non-toxic appearance. [] HENT: Normocephalic, atraumatic, bilateral external ears normal, oropharynx moist, no oral exudates, nose normal. [] Eyes: PERRLA, EOMI, conjunctiva normal, no discharge. [] Neck: Normal range of motion, no tenderness, supple, no stridor. [] Cardiovascular:Heart rate regular rhythm, no murmur [] Lungs & Thorax: Bilateral breath sounds clear to auscultation [] Abdomen: Bowel sounds normal, soft, no tenderness, no masses, no pulsatile masses. [] Skin: Warm, dry, no erythema, no rash. [] Back: No tenderness, no CVA tenderness. [] Extremities: No tenderness, no cyanosis, no clubbing, ROM intact, no edema. [] Neurologic examination Mental status: Awake oriented and alert x3 Cranial nerves: Extraocular movements intact, eyebrows darlene bilaterally smile symmetric, uvula elevation, shoulder shrug intact, tongue protrusion normal DTRs: 2+ Sensation: equal and normal in all extremities Strength: 5/5 in upper and lower extremities bilaterally Psychologic: Affect normal, judgement normal, mood normal. [] Current Patient Data Vital Signs Vital Signs Date Time Temp Pulse Resp B/P (MAP) Pulse Ox O2 Delivery O2 Flow Rate FiO2 07/26/17 18:41 88 18 99 07/26/17 18:20 98.3 123/76 (92) Room Air 98.3 Lab Values Laboratory Tests Test 07/26/17 18:10 07/26/17 19:00 White Blood Count 13.7 x10^3/uL (4.0-11.0) H Red Blood Count 4.99 x10^6/uL (4.30-5.70) Hemoglobin 14.8 g/dL (13.0-17.5) Hematocrit 46.0 % (39.0-53.0) Mean Corpuscular Volume 92 fL (79-100) Mean Corpuscular Hemoglobin 30 pg (25-35) Mean Corpuscular Hemoglobin Concent 32 g/dL (31-37) Red Cell Distribution Width 15.8 % (11.5-14.5) H Platelet Count 269 x10^3/uL (140-400) Neutrophils (%) (Auto) 45 % (31-73) Lymphocytes (%) (Auto) 45 % (24-48) Monocytes (%) (Auto) 8 % (0-9) Eosinophils (%) (Auto) 2 % (0-3) Basophils (%) (Auto) 1 % (0-3) Neutrophils # (Auto) 6.2 x10^3uL (1.8-7.7) Lymphocytes # (Auto) 6.2 x10^3/uL (1.0-4.8) H Monocytes # (Auto) 1.0 x10^3/uL (0.0-1.1) Eosinophils # (Auto) 0.2 x10^3/uL (0.0-0.7) Basophils # (Auto) 0.1 x10^3/uL (0.0-0.2) Platelet Estimate Pending Prothrombin Time 12.6 SEC (11.7-14.0) Prothrombin Time INR 1.0 (0.8-1.1) PTT 24 SEC (24-38) Sodium Level 148 mmol/L (136-145) H Potassium Level 3.5 mmol/L (3.5-5.1) Chloride Level 105 mmol/L (98-107) Carbon Dioxide Level 22 mmol/L (21-32) Anion Gap 21 (6-14) H Blood Urea Nitrogen 15 mg/dL (8-26) Creatinine 1.1 mg/dL (0.7-1.3) Estimated GFR (Cockcroft-Gault) 75.3 Glucose Level 96 mg/dL (70-99) Calcium Level 8.9 mg/dL (8.5-10.1) Total Bilirubin 0.2 mg/dL (0.2-1.0) Direct Bilirubin < 0.1 mg/dL (0.0-0.2) Aspartate Amino Transferase (AST) 72 U/L (15-37) H Alanine Aminotransferase (ALT) 140 U/L (16-63) H Alkaline Phosphatase 99 U/L (46-116) Total Protein 7.8 g/dL (6.4-8.2) Albumin 3.7 g/dL (3.4-5.0) Phenytoin (Dilantin) Level 0.9 mcg/mL (10.0-20.0) L Phenytoin Last Dose Date Unk Phenytoin Last Dose Time Unk Carbamazepine (Tegretol) Level < 0.5 mcg/mL (4.0-12.0) L Carbamazepine Last Dose Date Unk Carbamazepine Last Dose Time Unk Urine Opiates Screen Neg (NEG) Urine Methadone Screen Neg (NEG) Urine Barbiturates Neg (NEG) Urine Phencyclidine Screen Neg (NEG) Urine Amphetamine/Methamphetamine Neg (NEG) Urine Benzodiazepines Screen Pos (NEG) Urine Cocaine Screen Neg (NEG) Urine Cannabinoids Screen Neg (NEG) Urine Ethyl Alcohol Neg (NEG) Laboratory Tests 07/26/17 18:10 Laboratory Tests 07/26/17 18:10 EKG EKG [] Radiology/Procedures Radiology/Procedures [] Course & Med Decision Making Course & Med Decision Making Pertinent Labs and Imaging studies reviewed. (See chart for details) [] Dragon Disclaimer Dragon Disclaimer This electronic medical record was generated, in whole or in part, using a voice recognition dictation system. Departure Departure Impression: Primary Impression: Seizure Disposition: 09 ADMITTED INPATIENT Admitting Physician: Kelly Mcmanus Condition: IMPROVED Referrals: UNKNOWN PCP NAME (PCP) DION HUERTA MD Jul 26, 2017 20:28
[2017-07-26 20:43] LABS: % BASOS 1 % (0-3); % EOS 5 % (0-5); PLT ESTIMATE ADEQUATE (ADEQUATE)
[2017-07-26] MEDS: IV NORMAL SALINE 1000ML BAG 1,000 ML IV SCH (21:01)
[2017-07-26] MEDS ORDERED: DOCUSATE SODIUM 100 MG CAPSULE. PO PRN (21:15)
[2017-07-26] MEDS ORDERED: traMADol 50 MG TABLET PO PRN (21:15)
[2017-07-26] MEDS ORDERED: ACETAMINOPHEN 325 MG TABLET. PO PRN (21:15)
[2017-07-26] MEDS ORDERED: hydrALAZINE 20 MG/ML VIAL. IVP PRN (21:15)
[2017-07-26] MEDS ORDERED: LEVE500T6 PO (22:19)
[2017-07-26] MEDS ORDERED: SUMAtriptan. 6 MG/0.5 ML VIAL SQ ONE (22:30)
[2017-07-26] MEDS: DIVALPROEX EXTENDED RELEASE 500 MG TAB.ER.24H. PO SCH (22:47)
[2017-07-26] MEDS: levETIRAcetam 500 MG TABLET PO SCH (22:48)
[2017-07-26] MEDS: LACOSAMIDE 50 MG TABLET PO SCH (22:48)
[2017-07-27] VITALS (23 sets, daily range): BP systolic 97–136; BP diastolic 44–84
[2017-07-27] MEDS: IV NORMAL SALINE 1000ML BAG 1,000 ML IV SCH ×2 (05:48→11:15)
[2017-07-27 06:40] LABS: CREATININE 0.8 mg/dL (0.7-1.3); GFR 108.8
[2017-07-27] MEDS: LACOSAMIDE 50 MG TABLET PO SCH ×2 (08:24→21:15)
[2017-07-27] MEDS: levETIRAcetam 500 MG TABLET PO SCH ×2 (08:25→21:15)
[2017-07-27] MEDS: DIVALPROEX EXTENDED RELEASE 500 MG TAB.ER.24H. PO SCH ×2 (08:25→21:15)
[2017-07-27] MEDS: ONDANSETRON PF 4 MG/2 ML VIAL. IV PRN ×2 (08:56→17:44)
[2017-07-27] MEDS ORDERED: SERTRALINE 50 MG TABLET. PO SCH (09:00)
[2017-07-27 09:14] LABS: BASO % 0 % (0-3); EOS % 2 % (0-3); HEMATOCRIT 42.7 % (39.0-53.0); HEMOGLOBIN 14.1 g/dL (13.0-17.5); LYMPH # 3.5 x10^3/uL (1.0-4.8); LYMPH % 42 % (24-48); MEAN CORPUSCULAR HEMOGLOBIN 30 pg (25-35); MEAN CORPUSCULAR HGB CONC 33 g/dL (31-37); MEAN CORPUSCULAR VOLUME 90 fL (79-100); MONO % 7 % (0-9); NEUT % 49 % (31-73); PLATELET COUNT 217 x10^3/uL (140-400); RED BLOOD COUNT 4.73 x10^6/uL (4.30-5.70); RED CELL DISTRIBUTION WIDTH 15.6 % (11.5-14.5); WHITE BLOOD COUNT 8.4 x10^3/uL (4.0-11.0)
[2017-07-27] MEDS: MORPHINE SULFATE 2 MG/ML DISP.SYRIN. IV PRN (09:51)
[2017-07-27 10:16] LABS: CREATINE KINASE 112 U/L (39-308)
[2017-07-27 10:17] LABS: CKMB MASS < 0.5 ng/mL (0.0-3.6)
--- NOTE | 2017-07-27 12:37 | EKG ---
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
--- NOTE | 2017-07-27 12:40 | PDOC1 ---
History and Physical Date of Admission Date of Admission 07/27/17 Identification/Chief Complaint Chief Complaint seizure Problems: Source Source: Chart review, Patient History of Present Illness History of Present Illness HPI HPI 36-year-old male presenting to the emergency department after having a seizure yesterday. Pt is a poor historian, he said he had h/o brain trauma from which he got recent memory loss. as per ERP ,AND ICU nurse, who got history from his , he has not having frequent seizure till yesterday, when he was knocked out by his dog at home. The seizure lasted 30-45 sec. The patient's father is here with the patient today. He reports the patient was postictal for a short period and then returned to baseline. He denies any pain. Currently he is feeling better. didnot bite his tongue, but lost urine control during seizures. Pt was sent to ER, where he had another 2 times seizures, lasting for 10sec and 15sec. Pt said he remember the dog hit him and admitted he always have post ictal confusion post seizure. Pt was ob in ICU, no seizure overnight, LA 11, down to normal post IVF. vimpat added by neuro besides home meds. DEnies fever, chills, sob, chest pain. said he feels his hands tremors is getting worse recently and his feet twisted more at night. Past Medical History Cardiovascular: No pertinent hx Pulmonary: No pertinent hx CENTRAL NERVOUS SYSTEM: Seizure, Other GI: Other Psych: Anxiety, Depression, Other Past Surgical History Past Surgical History Appendectomy, Cholecystectomy, Other Additional Past Surgical Histo: L)ankle, Bairiatric surgery-sleeve Past Surgical History: Other Family History Family History: Hypertension Social History Smoke: No ALCOHOL: none Drugs: None Current Problem List Problem List Problems Medical Problems: (1) Seizure Status: Acute Current Medications Current Medications Current Medications Medications (Trade) Dose Ordered Sig/Vilma Start Time Stop Time Status Last Admin Dose Admin Acetaminophen (Tylenol) 650 mg PRN Q6HRS PRN 07/26/17 21:15 Acetaminophen/ Hydrocodone Bitart (Lortab 5/325) 2 tab PRN Q4HRS PRN 07/27/17 11:15 Divalproex Sodium (Depakote Er) 1,500 mg BID 07/26/17 22:30 07/27/17 08:25 1,500 MG Docusate Sodium (Colace) 100 mg PRN DAILY PRN 07/26/17 21:15 Fosphenytoin Sodium 1360 mg/ Sodium Chloride 77.2 ml @ 308.8 mls/ hr 1X ONCE 07/26/17 19:30 07/26/17 19:44 DC 07/26/17 19:47 308.8 MLS/HR Hydralazine HCl (Apresoline) 10 mg PRN Q4HRS PRN 07/26/17 21:15 Lacosamide (Vimpat) 50 mg BID 07/26/17 22:30 07/27/17 08:24 50 MG Levetiracetam (Keppra) 1,500 mg BID 07/26/17 22:30 07/27/17 08:25 1,500 MG Levetiracetam 1000 mg/Sodium Chloride 110 ml @ 440 mls/hr 1X ONCE 07/26/17 18:15 07/26/17 18:29 DC 07/26/17 18:16 440 MLS/HR Lorazepam (Ativan) 2 mg PRN Q4HRS PRN 07/26/17 21:15 07/27/17 00:22 2 MG Morphine Sulfate 2 mg PRN Q2HR PRN 07/26/17 21:15 07/27/17 09:51 2 MG Ondansetron HCl (Zofran) 4 mg PRN Q6HRS PRN 07/26/17 21:15 07/27/17 08:56 4 MG Sertraline HCl (Zoloft) 50 mg DAILY 07/28/17 09:00 Sodium Chloride 1,000 ml @ 125 mls/hr Q8H 07/26/17 21:00 07/27/17 11:15 125 MLS/HR Sodium Chloride (Normal Saline Flush) 10 ml QSHIFT PRN 07/26/17 18:15 07/26/17 18:16 10 ML Sumatriptan Succinate (Imitrex) 6 mg 1X ONCE 07/26/17 22:30 07/26/17 22:31 DC 07/26/17 22:48 6 MG Tramadol HCl (Ultram) 50 mg PRN Q6HRS PRN 07/26/17 21:15 07/26/17 22:17 DC Allergies Allergies Allergies Coded Allergies Type Severity Reaction Last Updated Verified venlafaxine Allergy Severe Seizures 10/31/16 Yes bupropion Allergy Unknown seizures 10/31/16 Yes ROS Review of System CONSTITUTIONAL: No fever or chills EYES: No recent changes SKIN: No rash or itching CARDIOVASCULAR: No chest pain, syncope, palpitations, or edema RESPIRATORY: No SOB or cough GASTROINTESTINAL: No nausea, vomiting or abdominal pain NEUROLOGICAL: No headaches or weakness ENDOCRINE: No cold or heat intolerance GENITOURINARY: No urgency or frequency of urination MUSCULOSKELETAL: No back pain or joint pain LYMPHATICS: No enlarged lymph nodes PSYCHIATRIC: No anxiety or depression Physical Exam Physical Exam GEN.: No apparent distress. Alert and oriented. talks slow, cannot provide good history. HEENT: Head is normocephalic, atraumatic NECK: Supple. LUNGS: Clear to auscultation. HEART: RRR, S1, S2 present. Peripheral pulses intact ABDOMEN: Soft, nontender. Positive bowel sounds. EXTREMITIES: Without any cyanosis. NEUROLOGIC: Normal speech, normal tone PSYCHIATRIC: Normal affect, normal mood. SKIN: No ulcerations Vitals Vitals Vital Signs Date Time Temp Pulse Resp B/P (MAP) Pulse Ox O2 Delivery O2 Flow Rate FiO2 07/27/17 12:06 98.4 82 20 111/80 (90) 92 Room Air 98.4 Labs Labs Laboratory Tests Test 07/26/17 18:10 07/26/17 19:00 07/27/17 05:00 07/27/17 08:40 White Blood Count 13.7 x10^3/uL (4.0-11.0) 8.4 x10^3/uL (4.0-11.0) Red Blood Count 4.99 x10^6/uL (4.30-5.70) 4.73 x10^6/uL (4.30-5.70) Hemoglobin 14.8 g/dL (13.0-17.5) 14.1 g/dL (13.0-17.5) Hematocrit 46.0 % (39.0-53.0) 42.7 % (39.0-53.0) Mean Corpuscular Volume 92 fL (79-100) 90 fL (79-100) Mean Corpuscular Hemoglobin 30 pg (25-35) 30 pg (25-35) Mean Corpuscular Hemoglobin Concent 32 g/dL (31-37) 33 g/dL (31-37) Red Cell Distribution Width 15.8 % (11.5-14.5) 15.6 % (11.5-14.5) Platelet Count 269 x10^3/uL (140-400) 217 x10^3/uL (140-400) Neutrophils (%) (Auto) 45 % (31-73) 49 % (31-73) Lymphocytes (%) (Auto) 45 % (24-48) 42 % (24-48) Monocytes (%) (Auto) 8 % (0-9) 7 % (0-9) Eosinophils (%) (Auto) 2 % (0-3) 2 % (0-3) Basophils (%) (Auto) 1 % (0-3) 0 % (0-3) Neutrophils # (Auto) 6.2 x10^3uL (1.8-7.7) 4.1 x10^3uL (1.8-7.7) Lymphocytes # (Auto) 6.2 x10^3/uL (1.0-4.8) 3.5 x10^3/uL (1.0-4.8) Monocytes # (Auto) 1.0 x10^3/uL (0.0-1.1) 0.6 x10^3/uL (0.0-1.1) Eosinophils # (Auto) 0.2 x10^3/uL (0.0-0.7) 0.2 x10^3/uL (0.0-0.7) Basophils # (Auto) 0.1 x10^3/uL (0.0-0.2) 0.0 x10^3/uL (0.0-0.2) Segmented Neutrophils % 47 % (35-66) Lymphocytes % 39 % (24-48) Monocytes % 8 % (0-10) Eosinophils % 5 % (0-5) Basophils % 1 % (0-3) Platelet Estimate Adequate (ADEQUATE) Prothrombin Time 12.6 SEC (11.7-14.0) Prothromb Time International Ratio 1.0 (0.8-1.1) Activated Partial Thromboplast Time 24 SEC (24-38) Sodium Level 148 mmol/L (136-145) 144 mmol/L (136-145) Potassium Level 3.5 mmol/L (3.5-5.1) 4.0 mmol/L (3.5-5.1) Chloride Level 105 mmol/L (98-107) 109 mmol/L (98-107) Carbon Dioxide Level 22 mmol/L (21-32) 23 mmol/L (21-32) Anion Gap 21 (6-14) 12 (6-14) Blood Urea Nitrogen 15 mg/dL (8-26) 14 mg/dL (8-26) Creatinine 1.1 mg/dL (0.7-1.3) 0.8 mg/dL (0.7-1.3) Estimated GFR (Cockcroft-Gault) 75.3 108.8 Glucose Level 96 mg/dL (70-99) 80 mg/dL (70-99) Lactic Acid Level 11.8 mmol/L (0.4-2.0) 1.5 mmol/L (0.4-2.0) Calcium Level 8.9 mg/dL (8.5-10.1) 8.0 mg/dL (8.5-10.1) Total Bilirubin 0.2 mg/dL (0.2-1.0) Direct Bilirubin < 0.1 mg/dL (0.0-0.2) Aspartate Amino Transf (AST/SGOT) 72 U/L (15-37) Alanine Aminotransferase (ALT/SGPT) 140 U/L (16-63) Alkaline Phosphatase 99 U/L (46-116) Total Protein 7.8 g/dL (6.4-8.2) Albumin 3.7 g/dL (3.4-5.0) Phenytoin (Dilantin) Level 0.9 mcg/mL (10.0-20.0) Phenytoin Last Dose Date Unk Phenytoin Last Dose Time Unk Carbamazepine (Tegretol) Level < 0.5 mcg/mL (4.0-12.0) Carbamazepine Last Dose Date Unk Carbamazepine Last Dose Time Unk Urine Opiates Screen Neg (NEG) Urine Methadone Screen Neg (NEG) Urine Barbiturates Neg (NEG) Urine Phencyclidine Screen Neg (NEG) Urine Amphetamine/Methamphetamine Neg (NEG) Urine Benzodiazepines Screen Pos (NEG) Urine Cocaine Screen Neg (NEG) Urine Cannabinoids Screen Neg (NEG) Urine Ethyl Alcohol Neg (NEG) Creatine Kinase 112 U/L (39-308) Creatine Kinase MB (Mass) < 0.5 ng/mL (0.0-3.6) Creatine Kinase MB Relative Index % (0-4) Laboratory Tests Test 07/26/17 18:10 07/26/17 19:00 07/27/17 05:00 07/27/17 08:40 White Blood Count 13.7 x10^3/uL (4.0-11.0) 8.4 x10^3/uL (4.0-11.0) Red Blood Count 4.99 x10^6/uL (4.30-5.70) 4.73 x10^6/uL (4.30-5.70) Hemoglobin 14.8 g/dL (13.0-17.5) 14.1 g/dL (13.0-17.5) Hematocrit 46.0 % (39.0-53.0) 42.7 % (39.0-53.0) Mean Corpuscular Volume 92 fL (79-100) 90 fL (79-100) Mean Corpuscular Hemoglobin 30 pg (25-35) 30 pg (25-35) Mean Corpuscular Hemoglobin Concent 32 g/dL (31-37) 33 g/dL (31-37) Red Cell Distribution Width 15.8 % (11.5-14.5) 15.6 % (11.5-14.5) Platelet Count 269 x10^3/uL (140-400) 217 x10^3/uL (140-400) Neutrophils (%) (Auto) 45 % (31-73) 49 % (31-73) Lymphocytes (%) (Auto) 45 % (24-48) 42 % (24-48) Monocytes (%) (Auto) 8 % (0-9) 7 % (0-9) Eosinophils (%) (Auto) 2 % (0-3) 2 % (0-3) Basophils (%) (Auto) 1 % (0-3) 0 % (0-3) Neutrophils # (Auto) 6.2 x10^3uL (1.8-7.7) 4.1 x10^3uL (1.8-7.7) Lymphocytes # (Auto) 6.2 x10^3/uL (1.0-4.8) 3.5 x10^3/uL (1.0-4.8) Monocytes # (Auto) 1.0 x10^3/uL (0.0-1.1) 0.6 x10^3/uL (0.0-1.1) Eosinophils # (Auto) 0.2 x10^3/uL (0.0-0.7) 0.2 x10^3/uL (0.0-0.7) Basophils # (Auto) 0.1 x10^3/uL (0.0-0.2) 0.0 x10^3/uL (0.0-0.2) Segmented Neutrophils % 47 % (35-66) Lymphocytes % 39 % (24-48) Monocytes % 8 % (0-10) Eosinophils % 5 % (0-5) Basophils % 1 % (0-3) Platelet Estimate Adequate (ADEQUATE) Prothrombin Time 12.6 SEC (11.7-14.0) Prothromb Time International Ratio 1.0 (0.8-1.1) Activated Partial Thromboplast Time 24 SEC (24-38) Sodium Level 148 mmol/L (136-145) 144 mmol/L (136-145) Potassium Level 3.5 mmol/L (3.5-5.1) 4.0 mmol/L (3.5-5.1) Chloride Level 105 mmol/L (98-107) 109 mmol/L (98-107) Carbon Dioxide Level 22 mmol/L (21-32) 23 mmol/L (21-32) Anion Gap 21 (6-14) 12 (6-14) Blood Urea Nitrogen 15 mg/dL (8-26) 14 mg/dL (8-26) Creatinine 1.1 mg/dL (0.7-1.3) 0.8 mg/dL (0.7-1.3) Estimated GFR (Cockcroft-Gault) 75.3 108.8 Glucose Level 96 mg/dL (70-99) 80 mg/dL (70-99) Lactic Acid Level 11.8 mmol/L (0.4-2.0) 1.5 mmol/L (0.4-2.0) Calcium Level 8.9 mg/dL (8.5-10.1) 8.0 mg/dL (8.5-10.1) Total Bilirubin 0.2 mg/dL (0.2-1.0) Direct Bilirubin < 0.1 mg/dL (0.0-0.2) Aspartate Amino Transf (AST/SGOT) 72 U/L (15-37) Alanine Aminotransferase (ALT/SGPT) 140 U/L (16-63) Alkaline Phosphatase 99 U/L (46-116) Total Protein 7.8 g/dL (6.4-8.2) Albumin 3.7 g/dL (3.4-5.0) Phenytoin (Dilantin) Level 0.9 mcg/mL (10.0-20.0) Phenytoin Last Dose Date Unk Phenytoin Last Dose Time Unk Carbamazepine (Tegretol) Level < 0.5 mcg/mL (4.0-12.0) Carbamazepine Last Dose Date Unk Carbamazepine Last Dose Time Unk Urine Opiates Screen Neg (NEG) Urine Methadone Screen Neg (NEG) Urine Barbiturates Neg (NEG) Urine Phencyclidine Screen Neg (NEG) Urine Amphetamine/Methamphetamine Neg (NEG) Urine Benzodiazepines Screen Pos (NEG) Urine Cocaine Screen Neg (NEG) Urine Cannabinoids Screen Neg (NEG) Urine Ethyl Alcohol Neg (NEG) Creatine Kinase 112 U/L (39-308) Creatine Kinase MB (Mass) < 0.5 ng/mL (0.0-3.6) Creatine Kinase MB Relative Index % (0-4) VTE Prophylaxis Ordered VTE Prophylaxis Devices: Yes VTE Pharmacological Prophylaxi: Yes Assessment/Plan Assessment/Plan seizure h/o epilepsy/seizure depression PTSD blind in left eye LA acidosis leukocytosis ,reactive h/o brain trauma with recent memory loss hypernatremia, with dehydration/seizure likely plan: fu with neuro on home meds depakote and keppra, vimpat added cont zoloft dvt ppx ok to transfer out of ICU. CKMB neg. LA normal now RON RAYMOND MD Jul 27, 2017 12:40
--- NOTE | 2017-07-27 12:50 | CONS ---
DATE OF CONSULTATION: 07/26/2017 REFERRING PHYSICIAN: Dr. Raymond. REASON FOR CONSULTATION: Recurrent seizures, intractable seizure disorder. HISTORY OF PRESENT ILLNESS: The patient is a 36-year-old man who suffered a traumatic brain injury while in the 9 years ago. As a consequence, he has severe memory impairment and intractable seizures. I spoke with his who is a nurse and also is his primary care provider. He is on Depakote ER 1500 mg twice per day and Keppra 1500 mg twice per day. He is not on phenytoin or carbamazepine. He has had breakthrough seizures on multiple occasions more recently. For a while, this regimen worked, but it seems to have lost its effectiveness. When he has gone to the Emergency Room, the drug levels have been in the solid therapeutic range according to his . In the Emergency Room, they were under the impression that he was on phenytoin at home and the drug level was low. They gave him a load of fosphenytoin. In the Emergency Room, he had several seizures lasting 30-45 seconds followed by 10-15 minutes of postictal confusion. He did return to his baseline after each seizure. I am evaluating him in the Intensive Care Unit where he feels back to his baseline. He states that he does not remember things past a few hours. He also has severe photophobia, which is ongoing and chronic. He has chronic daily headaches, which spike into migraine at times and the migraine seems to trigger more seizures. He normally follows with the [place] neurologist for seizure control. PAST MEDICAL HISTORY: 1. Anxiety disorder. 2. Depression. 3. Migraine headache. 4. Intractable epilepsy. 5. Post-traumatic stress disorder. 6. Traumatic brain injury. 7. Blind in left eye. 8. Appendectomy. 9. Cholecystectomy. 10. Multiple leg fractures. 11. Bariatric surgery - sleeve. ALLERGIES: BUPROPION AND VENLAFAXINE. MEDICATIONS PRIOR TO ADMISSION: It is not clear exactly what he is taking. I reviewed his medication list, which is no longer accurate. On the list was carbamazepine and Depakote, but when I spoke with the , he is on Keppra and Depakote and not on carbamazepine. I am certain as to the dosages of the Keppra and Depakote because she looked at the bottles while she was at home and I talked to her on the telephone. As far as his antidepressant regimen, I am not clear. I do know that he takes Valium on a daily basis. FAMILY HISTORY: Noncontributory. SOCIAL HISTORY: He is . He has a 7-year-old son who is autistic in the low to mid functioning range. He has a 5-year-old son in good health. His is a nurse and is his primary care provider. He does not smoke tobacco or drink alcohol. He does not use recreational drugs. REVIEW OF SYSTEMS: He complains of a headache. He has severe photophobia and altered vision in his left eye. He has severe cognitive impairment. He does not have nose or sinus trouble. He has been able to swallow without choking. He does not have shortness of breath, cough or cold. There has been no chest or abdominal pain. He does not have any bone or joint pain. There has been no fever or rash. Denies any gastrointestinal or genitourinary complaints. He does have numbness of his left ankle following surgery for his fractured leg. He does not have focal weakness. He is not aware of any coordination change other than he has difficulty with walking, but often does not use a cane or a walker. He does feel somewhat sore which is not unusual for him after a seizure. PHYSICAL EXAMINATION: VITAL SIGNS: Blood pressure was 123/76, pulse 83, respirations 16, temperature 98.3 degrees axillary. Oximetry was 94% on room air. His weight was 207.6 pounds and height 67 inches with a calculated body mass index of 32.5. GENERAL: He was alert, awake and cooperative. Speech was fluent and clear. His fund of knowledge was spotty. He had fairly good fund of knowledge regarding his psychiatric illnesses and his trauma. His acquisition of recent knowledge is what he said as impaired. His attention and concentration was good. He was able to fully cooperate for the examination. He appeared well groomed and well nourished. He appeared oriented to place. NEUROLOGIC: Muscle bulk and tone was normal. There was no arm drift or abnormal movement. There was no spasticity. The power was full and symmetric in the upper and lower extremities. Reflexes were 2/4 in the upper extremities, knees and ankles. Toes were downgoing. Coordination testing with [id number], [id number], fine motor and rapid alternating movements was well performed. Sensory exam was intact to pain, light touch, proprioception, graphesthesia, cold thermal and vibration. There was no extinction to double simultaneous stimulation. Gait was not testable. Auscultation of the carotid arteries did not reveal a bruit. Heart rhythm was regular without a murmur. Peripheral pulses were 2/4 in the upper extremities, but difficult to palpate in the feet. His feet were warm. There was no edema or cyanosis. LABORATORY DATA: CBC revealed an elevated white count of 13.7 with normal hemoglobin, hematocrit and platelet count. Sodium was elevated at 148 with normal potassium, chloride and CO2. BUN and creatinine were normal, and GFR calculated at 75.3. Glucose was normal at 96. Lactic acid was elevated to 11.8. Calcium was normal. Total bilirubin was normal. AST was elevated at 72 and ALT at 140. Albumin and total protein and alkaline phosphatase were normal. Urine drug screen revealed benzodiazepines, but he has prescribed Valium. Phenytoin level was not detected. Carbamazepine level was not detected. PT/INR was 1 and PTT was 24. Valproic acid level was last drawn on 11/07/2016 and was 78. IMPRESSION: The patient is a 36-year-old man who suffered a traumatic brain injury approximately 9 years ago and reports severe cognitive impairment. He has an intractable seizure disorder. Current anticonvulsants are Depakote ER 500 mg, 3 tablets twice a day; and levetiracetam 500 mg tablets, 3 tablets twice per day. This regimen is not adequately controlling his seizure. His neurologic exam was essentially nonfocal. RECOMMENDATIONS: I will continue with his previous dosages of Depakote and Keppra. I will add Vimpat to the regimen beginning at 50 mg twice per day and we can titrate up to 200 mg twice per day. He completed his load of fosphenytoin and I will not continue. We will not continue any further carbamazepine as he was no longer on it. His and he will need to work on another updated list of medications. If he remained seizure-free through today and tomorrow, he may be dismissed tomorrow evening. He also was complaining of a migraine headache, which is not unusual for him after seizure. I will make available an injection of Imitrex to see if this is helpful. I appreciate being involved in his care. EDUAR S. ZWIBELMAN, MD DR: ION/sarah JOB#: [id number] / [id number] giselle Adan, ____ RON RAYMOND MD, JAY MD
[2017-07-27] MEDS: ENOXAPARIN 40 MG/0.4 ML SYRINGE. SQ SCH (13:04)
--- NOTE | 2017-07-27 13:10 | PDOC ---
PROGRESS NOTES Assessment Problems Medical Problems: (1) Seizure Status: Acute I spoke with the nurse extensively. He did have a seizure today which appeared to be generalized tonic-clonic associated with urinary incontinence. He was postictal for a time. Last night he was somewhat confused and agitated. He has been less agitated today. Examination continues to be nonfocal. 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 His family has noted that when he has seizures he will typically have a cluster. This regimen previously was effective but he is having more breakthrough seizure. Plan Seizure disorder-I will continue with Keppra 1500 mg twice per day, Depakote ER 1500 mg twice per day and initiate Vimpat 50 mg twice a day with a plan to titrate. I do not feel he's safe to go home until we see a long stretch of time without recurrent seizure and is back to his baseline. At the present time he still is somewhat confused. Headache-I will continue with Depakote as a headache preventative. I will make available hydrocodone/acetaminophen 5/325 mg, 2 tablets every 4 hours as needed. His traumatic stress disorder-he will continue with sertraline and as needed Valium which he has not used in a long time. Subjective I have a headache. Objective Vital Signs Date Time Temp Pulse Resp B/P (MAP) Pulse Ox O2 Delivery O2 Flow Rate FiO2 07/27/17 12:06 98.4 82 20 111/80 (90) 92 Room Air 98.4 Intake and Output 07/28/17 07:00 Intake Total 200 ml Balance 200 ml Intake Oral 200 ml # Voids 1 PHYSICAL EXAM He was alert, awake and cooperative. He was able to focus on the examiner. Cranial nerves II through XII are intact. Muscle bulk and tone was normal. Power was fairly full and symmetric. Coordination was intact. Sensation was intact to light touch. Review of Relevant I have reviewed the following items maycol (where applicable) has been applied. Labs Laboratory Tests Test 07/26/17 18:10 07/26/17 19:00 07/27/17 05:00 07/27/17 08:40 White Blood Count 13.7 x10^3/uL (4.0-11.0) 8.4 x10^3/uL (4.0-11.0) Red Blood Count 4.99 x10^6/uL (4.30-5.70) 4.73 x10^6/uL (4.30-5.70) Hemoglobin 14.8 g/dL (13.0-17.5) 14.1 g/dL (13.0-17.5) Hematocrit 46.0 % (39.0-53.0) 42.7 % (39.0-53.0) Mean Corpuscular Volume 92 fL (79-100) 90 fL (79-100) Mean Corpuscular Hemoglobin 30 pg (25-35) 30 pg (25-35) Mean Corpuscular Hemoglobin Concent 32 g/dL (31-37) 33 g/dL (31-37) Red Cell Distribution Width 15.8 % (11.5-14.5) 15.6 % (11.5-14.5) Platelet Count 269 x10^3/uL (140-400) 217 x10^3/uL (140-400) Neutrophils (%) (Auto) 45 % (31-73) 49 % (31-73) Lymphocytes (%) (Auto) 45 % (24-48) 42 % (24-48) Monocytes (%) (Auto) 8 % (0-9) 7 % (0-9) Eosinophils (%) (Auto) 2 % (0-3) 2 % (0-3) Basophils (%) (Auto) 1 % (0-3) 0 % (0-3) Neutrophils # (Auto) 6.2 x10^3uL (1.8-7.7) 4.1 x10^3uL (1.8-7.7) Lymphocytes # (Auto) 6.2 x10^3/uL (1.0-4.8) 3.5 x10^3/uL (1.0-4.8) Monocytes # (Auto) 1.0 x10^3/uL (0.0-1.1) 0.6 x10^3/uL (0.0-1.1) Eosinophils # (Auto) 0.2 x10^3/uL (0.0-0.7) 0.2 x10^3/uL (0.0-0.7) Basophils # (Auto) 0.1 x10^3/uL (0.0-0.2) 0.0 x10^3/uL (0.0-0.2) Segmented Neutrophils % 47 % (35-66) Lymphocytes % 39 % (24-48) Monocytes % 8 % (0-10) Eosinophils % 5 % (0-5) Basophils % 1 % (0-3) Platelet Estimate Adequate (ADEQUATE) Prothrombin Time 12.6 SEC (11.7-14.0) Prothromb Time International Ratio 1.0 (0.8-1.1) Activated Partial Thromboplast Time 24 SEC (24-38) Sodium Level 148 mmol/L (136-145) 144 mmol/L (136-145) Potassium Level 3.5 mmol/L (3.5-5.1) 4.0 mmol/L (3.5-5.1) Chloride Level 105 mmol/L (98-107) 109 mmol/L (98-107) Carbon Dioxide Level 22 mmol/L (21-32) 23 mmol/L (21-32) Anion Gap 21 (6-14) 12 (6-14) Blood Urea Nitrogen 15 mg/dL (8-26) 14 mg/dL (8-26) Creatinine 1.1 mg/dL (0.7-1.3) 0.8 mg/dL (0.7-1.3) Estimated GFR (Cockcroft-Gault) 75.3 108.8 Glucose Level 96 mg/dL (70-99) 80 mg/dL (70-99) Lactic Acid Level 11.8 mmol/L (0.4-2.0) 1.5 mmol/L (0.4-2.0) Calcium Level 8.9 mg/dL (8.5-10.1) 8.0 mg/dL (8.5-10.1) Total Bilirubin 0.2 mg/dL (0.2-1.0) Direct Bilirubin < 0.1 mg/dL (0.0-0.2) Aspartate Amino Transf (AST/SGOT) 72 U/L (15-37) Alanine Aminotransferase (ALT/SGPT) 140 U/L (16-63) Alkaline Phosphatase 99 U/L (46-116) Total Protein 7.8 g/dL (6.4-8.2) Albumin 3.7 g/dL (3.4-5.0) Phenytoin (Dilantin) Level 0.9 mcg/mL (10.0-20.0) Phenytoin Last Dose Date Unk Phenytoin Last Dose Time Unk Carbamazepine (Tegretol) Level < 0.5 mcg/mL (4.0-12.0) Carbamazepine Last Dose Date Unk Carbamazepine Last Dose Time Unk Urine Opiates Screen Neg (NEG) Urine Methadone Screen Neg (NEG) Urine Barbiturates Neg (NEG) Urine Phencyclidine Screen Neg (NEG) Urine Amphetamine/Methamphetamine Neg (NEG) Urine Benzodiazepines Screen Pos (NEG) Urine Cocaine Screen Neg (NEG) Urine Cannabinoids Screen Neg (NEG) Urine Ethyl Alcohol Neg (NEG) Creatine Kinase 112 U/L (39-308) Creatine Kinase MB (Mass) < 0.5 ng/mL (0.0-3.6) Creatine Kinase MB Relative Index % (0-4) Laboratory Tests Test 07/26/17 18:10 07/26/17 19:00 07/27/17 05:00 07/27/17 08:40 White Blood Count 13.7 x10^3/uL (4.0-11.0) 8.4 x10^3/uL (4.0-11.0) Red Blood Count 4.99 x10^6/uL (4.30-5.70) 4.73 x10^6/uL (4.30-5.70) Hemoglobin 14.8 g/dL (13.0-17.5) 14.1 g/dL (13.0-17.5) Hematocrit 46.0 % (39.0-53.0) 42.7 % (39.0-53.0) Mean Corpuscular Volume 92 fL (79-100) 90 fL (79-100) Mean Corpuscular Hemoglobin 30 pg (25-35) 30 pg (25-35) Mean Corpuscular Hemoglobin Concent 32 g/dL (31-37) 33 g/dL (31-37) Red Cell Distribution Width 15.8 % (11.5-14.5) 15.6 % (11.5-14.5) Platelet Count 269 x10^3/uL (140-400) 217 x10^3/uL (140-400) Neutrophils (%) (Auto) 45 % (31-73) 49 % (31-73) Lymphocytes (%) (Auto) 45 % (24-48) 42 % (24-48) Monocytes (%) (Auto) 8 % (0-9) 7 % (0-9) Eosinophils (%) (Auto) 2 % (0-3) 2 % (0-3) Basophils (%) (Auto) 1 % (0-3) 0 % (0-3) Neutrophils # (Auto) 6.2 x10^3uL (1.8-7.7) 4.1 x10^3uL (1.8-7.7) Lymphocytes # (Auto) 6.2 x10^3/uL (1.0-4.8) 3.5 x10^3/uL (1.0-4.8) Monocytes # (Auto) 1.0 x10^3/uL (0.0-1.1) 0.6 x10^3/uL (0.0-1.1) Eosinophils # (Auto) 0.2 x10^3/uL (0.0-0.7) 0.2 x10^3/uL (0.0-0.7) Basophils # (Auto) 0.1 x10^3/uL (0.0-0.2) 0.0 x10^3/uL (0.0-0.2) Segmented Neutrophils % 47 % (35-66) Lymphocytes % 39 % (24-48) Monocytes % 8 % (0-10) Eosinophils % 5 % (0-5) Basophils % 1 % (0-3) Platelet Estimate Adequate (ADEQUATE) Prothrombin Time 12.6 SEC (11.7-14.0) Prothromb Time International Ratio 1.0 (0.8-1.1) Activated Partial Thromboplast Time 24 SEC (24-38) Sodium Level 148 mmol/L (136-145) 144 mmol/L (136-145) Potassium Level 3.5 mmol/L (3.5-5.1) 4.0 mmol/L (3.5-5.1) Chloride Level 105 mmol/L (98-107) 109 mmol/L (98-107) Carbon Dioxide Level 22 mmol/L (21-32) 23 mmol/L (21-32) Anion Gap 21 (6-14) 12 (6-14) Blood Urea Nitrogen 15 mg/dL (8-26) 14 mg/dL (8-26) Creatinine 1.1 mg/dL (0.7-1.3) 0.8 mg/dL (0.7-1.3) Estimated GFR (Cockcroft-Gault) 75.3 108.8 Glucose Level 96 mg/dL (70-99) 80 mg/dL (70-99) Lactic Acid Level 11.8 mmol/L (0.4-2.0) 1.5 mmol/L (0.4-2.0) Calcium Level 8.9 mg/dL (8.5-10.1) 8.0 mg/dL (8.5-10.1) Total Bilirubin 0.2 mg/dL (0.2-1.0) Direct Bilirubin < 0.1 mg/dL (0.0-0.2) Aspartate Amino Transf (AST/SGOT) 72 U/L (15-37) Alanine Aminotransferase (ALT/SGPT) 140 U/L (16-63) Alkaline Phosphatase 99 U/L (46-116) Total Protein 7.8 g/dL (6.4-8.2) Albumin 3.7 g/dL (3.4-5.0) Phenytoin (Dilantin) Level 0.9 mcg/mL (10.0-20.0) Phenytoin Last Dose Date Unk Phenytoin Last Dose Time Unk Carbamazepine (Tegretol) Level < 0.5 mcg/mL (4.0-12.0) Carbamazepine Last Dose Date Unk Carbamazepine Last Dose Time Unk Urine Opiates Screen Neg (NEG) Urine Methadone Screen Neg (NEG) Urine Barbiturates Neg (NEG) Urine Phencyclidine Screen Neg (NEG) Urine Amphetamine/Methamphetamine Neg (NEG) Urine Benzodiazepines Screen Pos (NEG) Urine Cocaine Screen Neg (NEG) Urine Cannabinoids Screen Neg (NEG) Urine Ethyl Alcohol Neg (NEG) Creatine Kinase 112 U/L (39-308) Creatine Kinase MB (Mass) < 0.5 ng/mL (0.0-3.6) Creatine Kinase MB Relative Index % (0-4) Medications Current Medications Sodium Chloride (Normal Saline Flush) 10 ml QSHIFT PRN IV AFTER MEDS AND BLOOD DRAWS Last administered on 07/26/17t 18:16; Start 07/26/17 at 18:15 Levetiracetam 1000 mg/Sodium Chloride 110 ml @ 440 mls/hr 1X ONCE IV Last administered on 07/26/17 18:16; Start 07/26/17 at 18:15; Stop 07/26/17 at 18:29 ; Status DC Fosphenytoin Sodium 1360 mg/ Sodium Chloride 77.2 ml @ 308.8 mls/ hr 1X ONCE IV Last administered on 07/26/17 19:47; Start 07/26/17 at 19:30; Stop at 19:44; Status DC Ondansetron HCl (Zofran) 4 mg PRN Q8HRS PRN IV NAUSEA/VOMITING Last administered on 07/26/17 20:58; Start 07/26/17 at 20:00; Stop 07/26/17 at 21:15 ; Status DC Morphine Sulfate 2 mg PRN Q2HR PRN IV PAIN Last administered on 07/26/17 20:59 ; Start 07/26/17 at 20:00; Stop 07/27/17 at 07:46; Status DC Sodium Chloride 1,000 ml @ 75 mls/hr [id number] IV Last administered on 11:15; Start 07/26/17 at 21:00 Acetaminophen (Tylenol) 650 mg PRN Q6HRS PRN PO FEVER; Start 07/26/17 at 21:15 Ondansetron HCl (Zofran) 4 mg PRN Q6HRS PRN IV NAUSEA/VOMITING Last administered on 07/27/17 08:56; Start 07/26/17 at 21:15 Morphine Sulfate 2 mg PRN Q2HR PRN IV PAIN Last administered on 07/27/17 09:51 ; Start 07/26/17 at 21:15 Tramadol HCl (Ultram) 50 mg PRN Q6HRS PRN PO PAIN; Start 07/26/17 at 21:15; Stop 07/26/17 at 22:17; Status DC Hydralazine HCl (Apresoline) 10 mg PRN Q4HRS PRN IVP ELEVATED BP, SEE COMMENTS ; Start 07/26/17 at 21:15 Docusate Sodium (Colace) 100 mg PRN DAILY PRN PO CONSTIPATION; Start 07/26/17 at 21:15 Lorazepam (Ativan) 2 mg PRN Q4HRS PRN IV ANXIETY / AGITATION Last administered on 07/27/17 00:22; Start 07/26/17 at 21:15 Sumatriptan Succinate (Imitrex) 6 mg 1X ONCE SQ Last administered on 22:48; Start 07/26/17 at 22:30; Stop 07/26/17 at 22:31; Status DC Lacosamide (Vimpat) 50 mg BID PO Last administered on 07/27/17 08:24; Start 07/26/17 at 22:30 Levetiracetam (Keppra) 1,500 mg BID PO Last administered on 07/27/17 08:25; Start 07/26/17 at 22:30 Divalproex Sodium (Depakote Er) 1,500 mg BID PO Last administered on 07/27/17 08:25; Start 07/26/17 at 22:30 Sertraline HCl (Zoloft) 100 mg DAILY PO Last administered on 07/27/17 08:46; Start 07/27/17 at 09:00; Stop 07/27/17 at 11:33; Status DC Acetaminophen/ Hydrocodone Bitart (Lortab 5/325) 2 tab PRN Q4HRS PRN PO PAIN; Start 07/27/17 at 11:15 Sertraline HCl (Zoloft) 50 mg DAILY PO ; Start 07/28/17 at 09:00 Enoxaparin Sodium (Lovenox 40mg Syringe) 40 mg Q24H SQ Last administered on 13:04; Start 07/27/17 at 13:00 Active Scripts Active Depakote Er (Divalproex Sodium) 500 Mg Tab.er.24h 1,500 Mg PO BID Reported Levetiracetam 500 Mg Tablet 1,500 Mg PO BID Sertraline Hcl 100 Mg Tablet 100 Mg PO DAILY Diazepam 10 Mg Tablet 10 Mg PO DAILY Vitals/I & O Vital Sign - Last 24 Hours 07/26/17 07/26/17 07/26/17 07/26/17 18:11 18:20 18:41 19:11 Temp 98.3 98.3 Pulse 106 108 88 102 Resp 20 18 18 18 B/P (MAP) 123/76 (92) Pulse Ox 99 98 99 96 O2 Delivery Room Air 07/26/17 07/26/17 07/26/17 07/26/17 19:41 20:35 20:35 20:45 Temp 98.4 98.4 Pulse 83 82 80 Resp 18 14 12 B/P (MAP) 132/78 (96) 123/72 (89) Pulse Ox 96 97 94 O2 Delivery Room Air Room Air Room Air 07/26/17 07/26/17 07/26/17 07/26/17 20:59 21:00 21:15 21:29 Pulse 84 78 Resp 17 14 14 16 B/P (MAP) 136/85 (102) 118/65 (82) Pulse Ox 96 97 94 94 O2 Delivery Room Air Room Air Room Air Room Air 07/26/17 07/26/17 07/26/17 07/26/17 21:30 21:45 22:00 23:00 Pulse 82 78 80 78 Resp 22 24 16 14 B/P (MAP) 118/65 (82) 124/73 (90) 119/80 (93) 122/82 (95) Pulse Ox 97 94 94 97 O2 Delivery Room Air Room Air Room Air Room Air 07/26/17 07/27/17 07/27/17 07/27/17 23:59 00:00 01:00 02:00 Temp 98.4 98.4 Pulse 72 92 92 Resp 16 22 22 B/P (MAP) 109/68 (82) 122/80 (94) 128/75 (92) Pulse Ox 95 95 96 O2 Delivery Room Air Room Air Room Air Room Air 07/27/17 07/27/17 07/27/17 07/27/17 03:00 04:00 04:00 05:00 Temp 98.4 98.4 Pulse 83 72 68 Resp 19 22 20 B/P (MAP) 114/69 (84) 106/71 (83) 103/44 (63) Pulse Ox 96 95 90 O2 Delivery Room Air Room Air Room Air Room Air 07/27/17 07/27/17 07/27/17 07/27/17 06:00 07:06 08:00 08:06 Pulse 68 68 81 Resp 12 15 16 B/P (MAP) 100/69 (79) 136/71 (92) 102/70 (81) Pulse Ox 94 95 97 O2 Delivery Room Air Room Air Room Air Room Air 07/27/17 07/27/17 07/27/17 07/27/17 09:06 09:51 10:03 10:21 Pulse 80 90 Resp 18 18 16 16 B/P (MAP) 115/84 (94) 116/84 (95) Pulse Ox 97 94 97 O2 Delivery Room Air Room Air Room Air Room Air 07/27/17 07/27/17 07/27/17 11:06 12:00 12:06 Temp 98.4 98.4 Pulse 90 82 Resp 16 20 B/P (MAP) 116/66 (83) 111/80 (90) Pulse Ox 95 92 O2 Delivery Room Air Room Air Room Air Intake and Output 07/27/17 07/27/17 07/28/17 15:00 23:00 07:00 Intake Total 200 ml Balance 200 ml EDUAR ALEGRIA MD Jul 27, 2017 13:10
[2017-07-27] MEDS: HYDROcodone/APAP 5/325MG 1 TAB TABLET PO PRN ×2 (13:20→17:40)
[2017-07-27] MEDS: TEMAZEPAM 7.5 MG CAPSULE PO PRN (21:15)
[2017-07-28] VITALS (23 sets, daily range): BP systolic 88–136; BP diastolic 59–85
[2017-07-28 03:35] LABS: BASO % 0 % (0-3); EOS % 2 % (0-3); HEMATOCRIT 45.1 % (39.0-53.0); HEMOGLOBIN 14.4 g/dL (13.0-17.5); LYMPH # 4.2 x10^3/uL (1.0-4.8); LYMPH % 34 % (24-48); MEAN CORPUSCULAR HEMOGLOBIN 30 pg (25-35); MEAN CORPUSCULAR HGB CONC 32 g/dL (31-37); MEAN CORPUSCULAR VOLUME 92 fL (79-100); MONO % 10 % (0-9); NEUT % 54 % (31-73); PLATELET COUNT 219 x10^3/uL (140-400); RED BLOOD COUNT 4.88 x10^6/uL (4.30-5.70); RED CELL DISTRIBUTION WIDTH 15.4 % (11.5-14.5); WHITE BLOOD COUNT 12.4 x10^3/uL (4.0-11.0)
[2017-07-28 03:46] LABS: CALCIUM 8.5 mg/dL (8.5-10.1); CREATININE 1.2 mg/dL (0.7-1.3); GFR 68.1; POTASSIUM 3.5 mmol/L (3.5-5.1)
[2017-07-28] MEDS: ONDANSETRON PF 4 MG/2 ML VIAL. IV PRN (04:40)
--- NOTE | 2017-07-28 05:42 | RAD ---
INDICATION: SEIZURES TONIGHT, FALL 3 DAYS AGO, HX BRAIN TRAUMA AND SEIZURES
SENT OLD FILMS FROM 10.31.16 COMPARISON: 10/31/2016 TECHNIQUE: Axial CT images obtained through the head without intravenous contrast. One or more of the following individualized dose reduction techniques were utilized for this examination: 1. Automated exposure control; 2. Adjustment of the mA and/or kV according to patient size; 3. Use of iterative reconstruction technique. FINDINGS: No intracranial hemorrhage. No midline shift. Basal cisterns patent. Ventricles and sulci are unremarkable. No acute osseous abnormality. Orbits and paranasal sinuses unremarkable. IMPRESSION: 1. No acute intracranial hemorrhage. Electronically signed by: Elan Castorena MD (07/28/2017 5:39 AM) [id number]
[2017-07-28] MEDS: LACOSAMIDE 50 MG TABLET PO SCH ×2 (09:12→20:34)
[2017-07-28] MEDS: SERTRALINE 50 MG TABLET. PO SCH (09:12)
[2017-07-28] MEDS: levETIRAcetam 500 MG TABLET PO SCH ×2 (09:12→20:34)
[2017-07-28] MEDS: HYDROcodone/APAP 5/325MG 1 TAB TABLET PO PRN (09:21)
[2017-07-28] MEDS: DIVALPROEX EXTENDED RELEASE 500 MG TAB.ER.24H. PO SCH ×2 (09:48→20:34)
[2017-07-28] MEDS: diazePAM 5 MG TABLET PO SCH (09:48)
[2017-07-28] MEDS: IV 1/2 NORMAL SALINE 1,000 ML IV SCH ×2 (09:50→23:05)
--- NOTE | 2017-07-28 13:08 | PDOC ---
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 CKMB neg. LA normal now History of Present Illness History of Present Illness ROS: NO fever, chills, sob or chest pain 3 times of seizure overnight, lasting 20-30sec, with postictal confusion Vitals Vitals Vital Signs Date Time Temp Pulse Resp B/P (MAP) Pulse Ox O2 Delivery O2 Flow Rate FiO2 07/28/17 12:00 Room Air 07/28/17 11:00 96 13 105/64 (78) 95 07/28/17 08:00 98.8 98.8 Physical Exam General: Alert, Oriented X3, Cooperative Heart: Regular rate, Normal S1, Normal S2 Lungs: Clear Abdomen: Normal bowel sounds, Soft Extremities: No clubbing, No cyanosis Skin: No rashes Labs LABS Laboratory Tests Test 07/28/17 03:10 White Blood Count 12.4 x10^3/uL (4.0-11.0) Red Blood Count 4.88 x10^6/uL (4.30-5.70) Hemoglobin 14.4 g/dL (13.0-17.5) Hematocrit 45.1 % (39.0-53.0) Mean Corpuscular Volume 92 fL (79-100) Mean Corpuscular Hemoglobin 30 pg (25-35) Mean Corpuscular Hemoglobin Concent 32 g/dL (31-37) Red Cell Distribution Width 15.4 % (11.5-14.5) Platelet Count 219 x10^3/uL (140-400) Neutrophils (%) (Auto) 54 % (31-73) Lymphocytes (%) (Auto) 34 % (24-48) Monocytes (%) (Auto) 10 % (0-9) Eosinophils (%) (Auto) 2 % (0-3) Basophils (%) (Auto) 0 % (0-3) Neutrophils # (Auto) 6.7 x10^3uL (1.8-7.7) Lymphocytes # (Auto) 4.2 x10^3/uL (1.0-4.8) Monocytes # (Auto) 1.3 x10^3/uL (0.0-1.1) Eosinophils # (Auto) 0.2 x10^3/uL (0.0-0.7) Basophils # (Auto) 0.0 x10^3/uL (0.0-0.2) Sodium Level 148 mmol/L (136-145) Potassium Level 3.5 mmol/L (3.5-5.1) Chloride Level 107 mmol/L (98-107) Carbon Dioxide Level 27 mmol/L (21-32) Anion Gap 14 (6-14) Blood Urea Nitrogen 13 mg/dL (8-26) Creatinine 1.2 mg/dL (0.7-1.3) Estimated GFR (Cockcroft-Gault) 68.1 Glucose Level 87 mg/dL (70-99) Calcium Level 8.5 mg/dL (8.5-10.1) Valproic Acid (Depakene) Level 94 mcg/mL (50-100) Valproic Acid Last Dose Date [id number] Valproic Acid Last Dose Time 2100 Assessment and Plan Assessmemt and Plan Problems Medical Problems: (1) Seizure Status: Acute Problems: Comment Review of Relevant I have reviewed the following items maycol (where applicable) has been applied. Labs Laboratory Tests Test 07/26/17 18:10 07/26/17 19:00 07/26/17 23:00 07/27/17 05:00 White Blood Count 13.7 x10^3/uL (4.0-11.0) Red Blood Count 4.99 x10^6/uL (4.30-5.70) Hemoglobin 14.8 g/dL (13.0-17.5) Hematocrit 46.0 % (39.0-53.0) Mean Corpuscular Volume 92 fL (79-100) Mean Corpuscular Hemoglobin 30 pg (25-35) Mean Corpuscular Hemoglobin Concent 32 g/dL (31-37) Red Cell Distribution Width 15.8 % (11.5-14.5) Platelet Count 269 x10^3/uL (140-400) Neutrophils (%) (Auto) 45 % (31-73) Lymphocytes (%) (Auto) 45 % (24-48) Monocytes (%) (Auto) 8 % (0-9) Eosinophils (%) (Auto) 2 % (0-3) Basophils (%) (Auto) 1 % (0-3) Neutrophils # (Auto) 6.2 x10^3uL (1.8-7.7) Lymphocytes # (Auto) 6.2 x10^3/uL (1.0-4.8) Monocytes # (Auto) 1.0 x10^3/uL (0.0-1.1) Eosinophils # (Auto) 0.2 x10^3/uL (0.0-0.7) Basophils # (Auto) 0.1 x10^3/uL (0.0-0.2) Segmented Neutrophils % 47 % (35-66) Lymphocytes % 39 % (24-48) Monocytes % 8 % (0-10) Eosinophils % 5 % (0-5) Basophils % 1 % (0-3) Platelet Estimate Adequate (ADEQUATE) Prothrombin Time 12.6 SEC (11.7-14.0) Prothromb Time International Ratio 1.0 (0.8-1.1) Activated Partial Thromboplast Time 24 SEC (24-38) Sodium Level 148 mmol/L (136-145) 144 mmol/L (136-145) Potassium Level 3.5 mmol/L (3.5-5.1) 4.0 mmol/L (3.5-5.1) Chloride Level 105 mmol/L (98-107) 109 mmol/L (98-107) Carbon Dioxide Level 22 mmol/L (21-32) 23 mmol/L (21-32) Anion Gap 21 (6-14) 12 (6-14) Blood Urea Nitrogen 15 mg/dL (8-26) 14 mg/dL (8-26) Creatinine 1.1 mg/dL (0.7-1.3) 0.8 mg/dL (0.7-1.3) Estimated GFR (Cockcroft-Gault) 75.3 108.8 Glucose Level 96 mg/dL (70-99) 80 mg/dL (70-99) Lactic Acid Level 11.8 mmol/L (0.4-2.0) Calcium Level 8.9 mg/dL (8.5-10.1) 8.0 mg/dL (8.5-10.1) Total Bilirubin 0.2 mg/dL (0.2-1.0) Direct Bilirubin < 0.1 mg/dL (0.0-0.2) Aspartate Amino Transf (AST/SGOT) 72 U/L (15-37) Alanine Aminotransferase (ALT/SGPT) 140 U/L (16-63) Alkaline Phosphatase 99 U/L (46-116) Total Protein 7.8 g/dL (6.4-8.2) Albumin 3.7 g/dL (3.4-5.0) Phenytoin (Dilantin) Level 0.9 mcg/mL (10.0-20.0) Phenytoin Last Dose Date Unk Phenytoin Last Dose Time Unk Carbamazepine (Tegretol) Level < 0.5 mcg/mL (4.0-12.0) Carbamazepine Last Dose Date Unk Carbamazepine Last Dose Time Unk Urine Opiates Screen Neg (NEG) Urine Methadone Screen Neg (NEG) Urine Barbiturates Neg (NEG) Urine Phencyclidine Screen Neg (NEG) Urine Amphetamine/Methamphetamine Neg (NEG) Urine Benzodiazepines Screen Pos (NEG) Urine Cocaine Screen Neg (NEG) Urine Cannabinoids Screen Neg (NEG) Urine Ethyl Alcohol Neg (NEG) Nasal Screen MRSA (PCR) Negative (Negative) Test 07/27/17 08:40 07/28/17 03:10 White Blood Count 8.4 x10^3/uL (4.0-11.0) 12.4 x10^3/uL (4.0-11.0) Red Blood Count 4.73 x10^6/uL (4.30-5.70) 4.88 x10^6/uL (4.30-5.70) Hemoglobin 14.1 g/dL (13.0-17.5) 14.4 g/dL (13.0-17.5) Hematocrit 42.7 % (39.0-53.0) 45.1 % (39.0-53.0) Mean Corpuscular Volume 90 fL (79-100) 92 fL (79-100) Mean Corpuscular Hemoglobin 30 pg (25-35) 30 pg (25-35) Mean Corpuscular Hemoglobin Concent 33 g/dL (31-37) 32 g/dL (31-37) Red Cell Distribution Width 15.6 % (11.5-14.5) 15.4 % (11.5-14.5) Platelet Count 217 x10^3/uL (140-400) 219 x10^3/uL (140-400) Neutrophils (%) (Auto) 49 % (31-73) 54 % (31-73) Lymphocytes (%) (Auto) 42 % (24-48) 34 % (24-48) Monocytes (%) (Auto) 7 % (0-9) 10 % (0-9) Eosinophils (%) (Auto) 2 % (0-3) 2 % (0-3) Basophils (%) (Auto) 0 % (0-3) 0 % (0-3) Neutrophils # (Auto) 4.1 x10^3uL (1.8-7.7) 6.7 x10^3uL (1.8-7.7) Lymphocytes # (Auto) 3.5 x10^3/uL (1.0-4.8) 4.2 x10^3/uL (1.0-4.8) Monocytes # (Auto) 0.6 x10^3/uL (0.0-1.1) 1.3 x10^3/uL (0.0-1.1) Eosinophils # (Auto) 0.2 x10^3/uL (0.0-0.7) 0.2 x10^3/uL (0.0-0.7) Basophils # (Auto) 0.0 x10^3/uL (0.0-0.2) 0.0 x10^3/uL (0.0-0.2) Lactic Acid Level 1.5 mmol/L (0.4-2.0) Creatine Kinase 112 U/L (39-308) Creatine Kinase MB (Mass) < 0.5 ng/mL (0.0-3.6) Creatine Kinase MB Relative Index % (0-4) Sodium Level 148 mmol/L (136-145) Potassium Level 3.5 mmol/L (3.5-5.1) Chloride Level 107 mmol/L (98-107) Carbon Dioxide Level 27 mmol/L (21-32) Anion Gap 14 (6-14) Blood Urea Nitrogen 13 mg/dL (8-26) Creatinine 1.2 mg/dL (0.7-1.3) Estimated GFR (Cockcroft-Gault) 68.1 Glucose Level 87 mg/dL (70-99) Calcium Level 8.5 mg/dL (8.5-10.1) Valproic Acid (Depakene) Level 94 mcg/mL (50-100) Valproic Acid Last Dose Date [id number] Valproic Acid Last Dose Time 2100 Laboratory Tests Test 07/28/17 03:10 White Blood Count 12.4 x10^3/uL (4.0-11.0) Red Blood Count 4.88 x10^6/uL (4.30-5.70) Hemoglobin 14.4 g/dL (13.0-17.5) Hematocrit 45.1 % (39.0-53.0) Mean Corpuscular Volume 92 fL (79-100) Mean Corpuscular Hemoglobin 30 pg (25-35) Mean Corpuscular Hemoglobin Concent 32 g/dL (31-37) Red Cell Distribution Width 15.4 % (11.5-14.5) Platelet Count 219 x10^3/uL (140-400) Neutrophils (%) (Auto) 54 % (31-73) Lymphocytes (%) (Auto) 34 % (24-48) Monocytes (%) (Auto) 10 % (0-9) Eosinophils (%) (Auto) 2 % (0-3) Basophils (%) (Auto) 0 % (0-3) Neutrophils # (Auto) 6.7 x10^3uL (1.8-7.7) Lymphocytes # (Auto) 4.2 x10^3/uL (1.0-4.8) Monocytes # (Auto) 1.3 x10^3/uL (0.0-1.1) Eosinophils # (Auto) 0.2 x10^3/uL (0.0-0.7) Basophils # (Auto) 0.0 x10^3/uL (0.0-0.2) Sodium Level 148 mmol/L (136-145) Potassium Level 3.5 mmol/L (3.5-5.1) Chloride Level 107 mmol/L (98-107) Carbon Dioxide Level 27 mmol/L (21-32) Anion Gap 14 (6-14) Blood Urea Nitrogen 13 mg/dL (8-26) Creatinine 1.2 mg/dL (0.7-1.3) Estimated GFR (Cockcroft-Gault) 68.1 Glucose Level 87 mg/dL (70-99) Calcium Level 8.5 mg/dL (8.5-10.1) Valproic Acid (Depakene) Level 94 mcg/mL (50-100) Valproic Acid Last Dose Date Valproic Acid Last Dose Time 2100 Medications Current Medications Sodium Chloride (Normal Saline Flush) 10 ml QSHIFT PRN IV AFTER MEDS AND BLOOD DRAWS Last administered on 07/26/17 18:16; Start 07/26/17 at 18:15 Levetiracetam 1000 mg/Sodium Chloride 110 ml @ 440 mls/hr 1X ONCE IV Last administered on 07/26/17 18:16; Start 07/26/17 at 18:15; Stop 07/26/17 at 18:29 ; Status DC Fosphenytoin Sodium 1360 mg/ Sodium Chloride 77.2 ml @ 308.8 mls/ hr 1X ONCE IV Last administered on 07/26/17 19:47; Start 07/26/17 at 19:30; Stop at 19:44; Status DC Ondansetron HCl (Zofran) 4 mg PRN Q8HRS PRN IV NAUSEA/VOMITING Last administered on 07/26/17 20:58; Start 07/26/17 at 20:00; Stop 07/26/17 at 21:15 ; Status DC Morphine Sulfate 2 mg PRN Q2HR PRN IV PAIN Last administered on 07/26/17 20:59 ; Start 07/26/17 at 20:00; Stop 07/27/17 at 07:46; Status DC Sodium Chloride 1,000 ml @ 75 mls/hr [id number] IV Last administered on 11:15; Start 07/26/17 at 21:00; Stop 07/28/17 at 09:32; Status DC Acetaminophen (Tylenol) 650 mg PRN Q6HRS PRN PO FEVER; Start 07/26/17 at 21:15 Ondansetron HCl (Zofran) 4 mg PRN Q6HRS PRN IV NAUSEA/VOMITING Last administered on 07/28/17 04:40; Start 07/26/17 at 21:15 Morphine Sulfate 2 mg PRN Q2HR PRN IV PAIN Last administered on 07/27/17 09:51 ; Start 07/26/17 at 21:15 Tramadol HCl (Ultram) 50 mg PRN Q6HRS PRN PO PAIN; Start 07/26/17 at 21:15; Stop 07/26/17 at 22:17; Status DC Hydralazine HCl (Apresoline) 10 mg PRN Q4HRS PRN IVP ELEVATED BP, SEE COMMENTS ; Start 07/26/17 at 21:15 Docusate Sodium (Colace) 100 mg PRN DAILY PRN PO CONSTIPATION; Start 07/26/17 at 21:15 Lorazepam (Ativan) 2 mg PRN Q4HRS PRN IV ANXIETY / AGITATION Last administered on 07/28/17 03:17; Start 07/26/17 at 21:15 Sumatriptan Succinate (Imitrex) 6 mg 1X ONCE SQ Last administered on 22:48; Start 07/26/17 at 22:30; Stop 07/26/17 at 22:31; Status DC Lacosamide (Vimpat) 50 mg BID PO Last administered on 07/28/17 09:12; Start 07/26/17 at 22:30 Levetiracetam (Keppra) 1,500 mg BID PO Last administered on 07/28/17 09:12; Start 07/26/17 at 22:30 Divalproex Sodium (Depakote Er) 1,500 mg BID PO Last administered on 07/28/17 09:48; Start 07/26/17 at 22:30 Sertraline HCl (Zoloft) 100 mg DAILY PO Last administered on 07/27/17 08:46; Start 07/27/17 at 09:00; Stop 07/27/17 at 11:33; Status DC Acetaminophen/ Hydrocodone Bitart (Lortab 5/325) 2 tab PRN Q4HRS PRN PO PAIN Last administered on 07/28/17 09:21; Start 07/27/17 at 11:15 Sertraline HCl (Zoloft) 50 mg DAILY PO Last administered on 07/28/17 09:12; Start 07/28/17 at 09:00 Enoxaparin Sodium (Lovenox 40mg Syringe) 40 mg Q24H SQ Last administered on 13:04; Start 07/27/17 at 13:00 Temazepam (Restoril) 7.5 mg PRN QHS PRN PO INSOMNIA Last administered on 21:15; Start 07/27/17 at 20:30 Sodium Chloride 1,000 ml @ 75 mls/hr [id number] IV Last administered on 09:50; Start 07/28/17 at 09:45 Diazepam (Valium) 10 mg DAILY PO Last administered on 07/28/17 09:48; Start 07/28/17 at 10:00 Active Scripts Active Depakote Er (Divalproex Sodium) 500 Mg Tab.er.24h 1,500 Mg PO BID Reported Levetiracetam 500 Mg Tablet 1,500 Mg PO BID Sertraline Hcl 100 Mg Tablet 100 Mg PO DAILY Diazepam 10 Mg Tablet 10 Mg PO DAILY Vitals/I & O Vital Sign - Last 24 Hours 07/27/17 07/27/17 07/27/17 07/27/17 13:20 14:04 15:06 15:54 Pulse 81 82 Resp 18 17 17 B/P (MAP) 97/57 (70) 103/60 (74) Pulse Ox 95 92 92 O2 Delivery Room Air Room Air Room Air Room Air 07/27/17 07/27/17 07/27/17 07/27/17 16:06 17:00 17:40 18:00 Temp 98.4 98.4 Pulse 83 80 96 Resp 20 17 18 18 B/P (MAP) 112/60 (77) 136/80 (98) 114/72 (86) Pulse Ox 94 93 93 91 O2 Delivery Room Air Room Air Room Air Room Air 07/27/17 07/27/17 07/27/17 07/27/17 18:40 20:00 20:00 21:00 Temp 98.5 98.5 Pulse 79 72 Resp 20 18 18 B/P (MAP) 111/72 (85) 110/77 (88) Pulse Ox 91 96 96 O2 Delivery Room Air Room Air Room Air Room Air 07/27/17 07/27/17 07/27/17 07/28/17 22:00 23:00 23:59 00:00 Temp 98.0 98.0 Pulse 76 70 65 Resp 16 16 16 B/P (MAP) 98/69 (79) 113/71 (85) 88/65 (73) Pulse Ox 98 95 94 O2 Delivery Room Air Room Air Room Air Room Air 07/28/17 07/28/17 07/28/17 07/28/17 01:00 02:00 03:00 04:00 Temp 98.2 98.2 Pulse 72 67 80 105 Resp 20 18 18 18 B/P (MAP) 90/70 (77) 89/70 (76) 110/70 (83) 111/70 (84) Pulse Ox 95 95 95 99 O2 Delivery Room Air Room Air Room Air Room Air 07/28/17 07/28/17 07/28/17 07/28/17 04:00 05:00 06:00 07:00 Pulse 91 81 72 Resp 18 18 21 B/P (MAP) 91/69 (76) 107/69 (82) 117/71 (86) Pulse Ox 95 95 93 O2 Delivery Room Air Room Air Room Air Room Air 07/28/17 07/28/17 07/28/17 07/28/17 08:00 08:00 09:00 10:00 Temp 98.8 98.8 Pulse 82 88 102 Resp 28 23 15 B/P (MAP) 116/73 (87) 134/85 (101) 119/71 (87) Pulse Ox 93 96 92 O2 Delivery Room Air Room Air Room Air Room Air 07/28/17 07/28/17 11:00 12:00 Pulse 96 Resp 13 B/P (MAP) 105/64 (78) Pulse Ox 95 O2 Delivery Room Air Room Air Intake and Output 07/28/17 07/28/17 07/29/17 15:00 23:00 07:00 Output Total 700 ml Balance -700 ml RON RAYMOND MD Jul 28, 2017 13:08
--- NOTE | 2017-07-28 13:51 | PDOC ---
PROGRESS NOTES Assessment Assessment IMPRESSION: Seizure. Hx of PTSD RECOMMENDATIONS/PLAN: Continue Keppra 1500 mg bid. Continue Depakote 1500 mg bid. Increase Vimpat to 100 mg bid. EEG. He was reportedly to gave 2 seizures over night around 3: 00 am decreased at convulsion per his nurse. Past Medical History Cardiovascular: No pertinent hx Pulmonary: No pertinent hx CENTRAL NERVOUS SYSTEM: Seizure, Other GI: Other Psych: Anxiety, Depression, Other Past Surgical History Appendectomy, Cholecystectomy, Other Additional Past Surgical Histo: L ankle, Bairiatric surgery-sleeve Past Surgical History: Other Family History Hypertension Social History Smoke: No ALCOHOL: none Drugs: None He stays home not working. ALLERGY: Reviewed. MEDICATIONS: Refer to MAR REVIEW OF SYSTEMS: Constitutional: No malnutrition, weight loss, cachexia. Head: Hx of traumatic head injury. Skin: No edema, or rash. Ear: No infection. Eyes: No vision loss, or diplopia. Nose: No bleeding or purulent discharges. Hearing: No hearing decrease. Neck: No recent injury. Cardiac: No AK, arrhythmia Pulmonary: No CPOD. GI: No GI Ulcer, GI bleeding Urinary/genital: No dysuria, incontinence, urinary retention. Endocrine: No cousin face, craniofacial dysmorphism, polydactyly. Skeletomuscular: No muscular atrophy, deformity. Neurological: see HP. Psychiatric: Denies drug use/abuse. Otherwise, not [id number] review of systems. PHYSICAL EXAMINATION: General appearance in no acute distress. HEENT: Normocephalic and nontraumatic. Eyes, nose, ears, and throat are unremarkable. Neck is supple. No lymphadenopathy. No bruits are heard over the carotid artery. No Crepitus. Cardiovascular: S1, S2, regular rate and rhythm. Pulmonary: Clear to auscultation bilaterally. Abdomen: Bowel sounds are positive. Abdomen is soft, nontender, and nondistended. Extremities: No rash, lesions, or edema. No restriction of range of motion NEUROLOGICAL EXAMINATION: Awake. Oriented to time, place and person. PERRL. EOMI. CN: no focal findings. Muscle tone: within normal. Muscle strength: 5 DTR: 2 Plantar reflex: Flexor response bilaterally Gait: not examined in bed. Sensory exam: no abnormal findings. No acute cerebellar signs elicited. Objective Objective Vital Signs Date Time Temp Pulse Resp B/P (MAP) Pulse Ox O2 Delivery O2 Flow Rate FiO2 10/9/17 12:00 Room Air 07/28/17 11:00 96 13 105/64 (78) 95 07/28/17 08:00 98.8 98.8 Intake and Output 07/29/17 07:00 Output Total 700 ml Balance -700 ml Output Urine Total 700 ml Vitals Signs Vitals VS - Last 72 Hours, by Label Date Time Temp Pulse Resp B/P (MAP) Pulse Ox O2 Delivery O2 Flow Rate FiO2 07/28/17 12:00 Room Air 07/28/17 11:00 96 13 105/64 (78) 95 Room Air 07/28/17 10:00 102 15 119/71 (87) 92 Room Air 07/28/17 09:00 88 23 134/85 (101) 96 Room Air 07/28/17 08:00 Room Air 07/28/17 08:00 98.8 82 28 116/73 (87) 93 Room Air 98.8 07/28/17 07:00 72 21 117/71 (86) 93 Room Air 07/28/17 06:00 81 18 107/69 (82) 95 Room Air 07/28/17 05:00 91 18 91/69 (76) 95 Room Air 07/28/17 04:00 Room Air 07/28/17 04:00 98.2 105 18 111/70 (84) 99 Room Air 98.2 07/28/17 03:00 80 18 110/70 (83) 95 Room Air 07/28/17 02:00 67 18 89/70 (76) 95 Room Air 07/28/17 01:00 72 20 90/70 (77) 95 Room Air 07/28/17 00:00 98.0 65 16 88/65 (73) 94 Room Air 98.0 07/27/17 23:59 Room Air 07/27/17 23:00 70 16 113/71 (85) 95 Room Air 07/27/17 22:00 76 16 98/69 (79) 98 Room Air 07/27/17 21:00 98.5 72 18 110/77 (88) 96 Room Air 98.5 07/27/17 20:00 79 18 111/72 (85) 96 Room Air 07/27/17 20:00 Room Air 07/27/17 18:40 20 91 Room Air 07/27/17 18:00 96 18 114/72 (86) 91 Room Air 07/27/17 17:40 18 93 Room Air 07/27/17 17:00 80 17 136/80 (98) 93 Room Air 07/27/17 16:06 98.4 83 20 112/60 (77) 94 Room Air 98.4 07/27/17 15:54 Room Air 07/27/17 15:06 82 17 103/60 (74) 92 Room Air 07/27/17 14:04 81 17 97/57 (70) 92 Room Air 07/27/17 13:20 18 95 Room Air 07/27/17 13:00 85 18 106/67 (80) 95 Room Air 07/27/17 12:06 98.4 82 20 111/80 (90) 92 Room Air 98.4 07/27/17 12:00 Room Air 07/27/17 11:06 90 16 116/66 (83) 95 Room Air 07/27/17 10:21 16 97 Room Air 07/27/17 10:03 90 16 116/84 (95) 94 Room Air 07/27/17 09:51 18 Room Air 07/27/17 09:06 80 18 115/84 (94) 97 Room Air 07/27/17 08:06 81 16 102/70 (81) 97 Room Air 07/27/17 08:00 Room Air 07/27/17 07:06 68 15 136/71 (92) 95 Room Air Laboratory Laboratory Laboratory Tests Test 07/28/17 03:10 White Blood Count 12.4 x10^3/uL (4.0-11.0) Red Blood Count 4.88 x10^6/uL (4.30-5.70) Hemoglobin 14.4 g/dL (13.0-17.5) Hematocrit 45.1 % (39.0-53.0) Mean Corpuscular Volume 92 fL (79-100) Mean Corpuscular Hemoglobin 30 pg (25-35) Mean Corpuscular Hemoglobin Concent 32 g/dL (31-37) Red Cell Distribution Width 15.4 % (11.5-14.5) Platelet Count 219 x10^3/uL (140-400) Neutrophils (%) (Auto) 54 % (31-73) Lymphocytes (%) (Auto) 34 % (24-48) Monocytes (%) (Auto) 10 % (0-9) Eosinophils (%) (Auto) 2 % (0-3) Basophils (%) (Auto) 0 % (0-3) Neutrophils # (Auto) 6.7 x10^3uL (1.8-7.7) Lymphocytes # (Auto) 4.2 x10^3/uL (1.0-4.8) Monocytes # (Auto) 1.3 x10^3/uL (0.0-1.1) Eosinophils # (Auto) 0.2 x10^3/uL (0.0-0.7) Basophils # (Auto) 0.0 x10^3/uL (0.0-0.2) Sodium Level 148 mmol/L (136-145) Potassium Level 3.5 mmol/L (3.5-5.1) Chloride Level 107 mmol/L (98-107) Carbon Dioxide Level 27 mmol/L (21-32) Anion Gap 14 (6-14) Blood Urea Nitrogen 13 mg/dL (8-26) Creatinine 1.2 mg/dL (0.7-1.3) Estimated GFR (Cockcroft-Gault) 68.1 Glucose Level 87 mg/dL (70-99) Calcium Level 8.5 mg/dL (8.5-10.1) Valproic Acid (Depakene) Level 94 mcg/mL (50-100) Valproic Acid Last Dose Date [id number] Valproic Acid Last Dose Time 2100 Medication Medications Current Medications Diazepam (Valium) 10 mg DAILY PO Last administered on 07/28/17 09:48; Start 07/28/17 at 10:00 Sertraline HCl (Zoloft) 50 mg DAILY PO Last administered on 07/28/17 09:12; Start 07/28/17 at 09:00 Sodium Chloride 1,000 ml @ 75 mls/hr [id number] IV Last administered on 09:50; Start 07/28/17 at 09:45 Temazepam (Restoril) 7.5 mg PRN QHS PRN PO INSOMNIA Last administered on 21:15; Start 07/27/17 at 20:30 Comment Review of Relevant I have reviewed the following items maycol (where applicable) has been applied. ANDREW WELCH MD Jul 28, 2017 13:51
[2017-07-28] MEDS: ENOXAPARIN 40 MG/0.4 ML SYRINGE. SQ SCH (15:24)
[2017-07-28] MEDS: MORPHINE SULFATE 2 MG/ML DISP.SYRIN. IV PRN (20:12)
[2017-07-28] MEDS: TEMAZEPAM 7.5 MG CAPSULE PO PRN (20:34)
[2017-07-29] VITALS (15 sets, daily range): BP systolic 90–125; BP diastolic 49–83
[2017-07-29 04:58] LABS: BASO % 0 % (0-3); EOS % 1 % (0-3); HEMATOCRIT 38.6 % (39.0-53.0); HEMOGLOBIN 12.9 g/dL (13.0-17.5); LYMPH # 2.2 x10^3/uL (1.0-4.8); LYMPH % 29 % (24-48); MEAN CORPUSCULAR HEMOGLOBIN 30 pg (25-35); MEAN CORPUSCULAR HGB CONC 33 g/dL (31-37); MEAN CORPUSCULAR VOLUME 89 fL (79-100); MONO % 13 % (0-9); NEUT % 56 % (31-73); PLATELET COUNT 160 x10^3/uL (140-400); RED BLOOD COUNT 4.34 x10^6/uL (4.30-5.70); RED CELL DISTRIBUTION WIDTH 15.2 % (11.5-14.5); WHITE BLOOD COUNT 7.4 x10^3/uL (4.0-11.0)
[2017-07-29 05:47] LABS: CALCIUM 8.3 mg/dL (8.5-10.1); CREATININE 1.1 mg/dL (0.7-1.3); GFR 75.3; POTASSIUM 3.5 mmol/L (3.5-5.1)
[2017-07-29] MEDS: diazePAM 5 MG TABLET PO SCH (08:23)
[2017-07-29] MEDS: LACOSAMIDE 50 MG TABLET PO SCH ×2 (08:23→21:20)
[2017-07-29] MEDS: SERTRALINE 50 MG TABLET. PO SCH (08:23)
[2017-07-29] MEDS: levETIRAcetam 500 MG TABLET PO SCH ×2 (08:23→21:21)
[2017-07-29] MEDS: DIVALPROEX EXTENDED RELEASE 500 MG TAB.ER.24H. PO SCH ×2 (08:24→21:21)
[2017-07-29] MEDS: IV 1/2 NORMAL SALINE 1,000 ML IV SCH (10:57)
[2017-07-29] MEDS: HYDROcodone/APAP 5/325MG 1 TAB TABLET PO PRN ×2 (10:59→17:42)
--- NOTE | 2017-07-29 12:36 | EEG ---
DATE OF SERVICE: 07/29/2017 EEG NUMBER: [id number]. OBJECTIVE: This is a 36-year-old male patient with history of seizure. He was reportedly to have multiple seizures. EEG was requested to evaluate seizure activity. METHODS: Twenty electrodes were applied according to the international 10-20 electrode placement system. EKG monitoring, hyperventilation, intermittent photic stimulation, monopolar and bipolar montages are routinely utilized. The record was obtained on a digital system with video monitoring. MEDICATIONS: Keppra and Depakote. FINDINGS: 1. Background: The patient was recorded in the awake, drowsy and sleep states. The overall background amplitude is 10-25 microvolts. A posterior dominant rhythm of 8-10 Hz is observed. The fast activity in beta frequency also noted. 2. Abnormalities:. No specific epileptiform discharge or electrographic seizure is seen. No focal or diffuse slowing. 3. Activation: Hyperventilation was performed with good efforts and normal response. Intermittent photic stimulation was performed with photic driving. No specific epileptiform discharge or electrographic seizure induced by hyperventilation or intermittent photic stimulation. IMPRESSION: This EEG is a normal study for the awake, drowsy and sleep states. No focal, lateralizing, specific epileptiform discharge or electrographic seizure is seen. The fast activity in beta frequency may be medication effect. ANDREW WELCH MD DR: STEWART/sarah JOB#: [id number] / [id number] VASILE
--- NOTE | 2017-07-29 13:09 | PDOC ---
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 EEG no active epilepsy History of Present Illness History of Present Illness ROS: NO fever, chills, sob or chest pain 3 times of seizure , lasting 20-30sec, with postictal confusion night of 07/27 Vitals Vitals Vital Signs Date Time Temp Pulse Resp B/P (MAP) Pulse Ox O2 Delivery O2 Flow Rate FiO2 07/29/17 11:00 93 18 125/76 (92) 94 Room Air 07/29/17 09:00 98.6 98.6 Physical Exam General: Alert, Oriented X3, Cooperative Heart: Regular rate, Normal S1, Normal S2 Lungs: Clear Abdomen: Normal bowel sounds, Soft Extremities: No clubbing, No cyanosis Skin: No rashes Labs LABS Laboratory Tests Test 07/29/17 04:10 White Blood Count 7.4 x10^3/uL (4.0-11.0) Red Blood Count 4.34 x10^6/uL (4.30-5.70) Hemoglobin 12.9 g/dL (13.0-17.5) Hematocrit 38.6 % (39.0-53.0) Mean Corpuscular Volume 89 fL (79-100) Mean Corpuscular Hemoglobin 30 pg (25-35) Mean Corpuscular Hemoglobin Concent 33 g/dL (31-37) Red Cell Distribution Width 15.2 % (11.5-14.5) Platelet Count 160 x10^3/uL (140-400) Neutrophils (%) (Auto) 56 % (31-73) Lymphocytes (%) (Auto) 29 % (24-48) Monocytes (%) (Auto) 13 % (0-9) Eosinophils (%) (Auto) 1 % (0-3) Basophils (%) (Auto) 0 % (0-3) Neutrophils # (Auto) 4.1 x10^3uL (1.8-7.7) Lymphocytes # (Auto) 2.2 x10^3/uL (1.0-4.8) Monocytes # (Auto) 1.0 x10^3/uL (0.0-1.1) Eosinophils # (Auto) 0.1 x10^3/uL (0.0-0.7) Basophils # (Auto) 0.0 x10^3/uL (0.0-0.2) Sodium Level 144 mmol/L (136-145) Potassium Level 3.5 mmol/L (3.5-5.1) Chloride Level 107 mmol/L (98-107) Carbon Dioxide Level 30 mmol/L (21-32) Anion Gap 7 (6-14) Blood Urea Nitrogen 13 mg/dL (8-26) Creatinine 1.1 mg/dL (0.7-1.3) Estimated GFR (Cockcroft-Gault) 75.3 Glucose Level 86 mg/dL (70-99) Calcium Level 8.3 mg/dL (8.5-10.1) Assessment and Plan Assessmemt and Plan Problems Medical Problems: (1) Seizure Status: Acute Problems: Comment Review of Relevant I have reviewed the following items maycol (where applicable) has been applied. Labs Laboratory Tests Test 07/28/17 03:10 07/29/17 04:10 White Blood Count 12.4 x10^3/uL (4.0-11.0) 7.4 x10^3/uL (4.0-11.0) Red Blood Count 4.88 x10^6/uL (4.30-5.70) 4.34 x10^6/uL (4.30-5.70) Hemoglobin 14.4 g/dL (13.0-17.5) 12.9 g/dL (13.0-17.5) Hematocrit 45.1 % (39.0-53.0) 38.6 % (39.0-53.0) Mean Corpuscular Volume 92 fL (79-100) 89 fL (79-100) Mean Corpuscular Hemoglobin 30 pg (25-35) 30 pg (25-35) Mean Corpuscular Hemoglobin Concent 32 g/dL (31-37) 33 g/dL (31-37) Red Cell Distribution Width 15.4 % (11.5-14.5) 15.2 % (11.5-14.5) Platelet Count 219 x10^3/uL (140-400) 160 x10^3/uL (140-400) Neutrophils (%) (Auto) 54 % (31-73) 56 % (31-73) Lymphocytes (%) (Auto) 34 % (24-48) 29 % (24-48) Monocytes (%) (Auto) 10 % (0-9) 13 % (0-9) Eosinophils (%) (Auto) 2 % (0-3) 1 % (0-3) Basophils (%) (Auto) 0 % (0-3) 0 % (0-3) Neutrophils # (Auto) 6.7 x10^3uL (1.8-7.7) 4.1 x10^3uL (1.8-7.7) Lymphocytes # (Auto) 4.2 x10^3/uL (1.0-4.8) 2.2 x10^3/uL (1.0-4.8) Monocytes # (Auto) 1.3 x10^3/uL (0.0-1.1) 1.0 x10^3/uL (0.0-1.1) Eosinophils # (Auto) 0.2 x10^3/uL (0.0-0.7) 0.1 x10^3/uL (0.0-0.7) Basophils # (Auto) 0.0 x10^3/uL (0.0-0.2) 0.0 x10^3/uL (0.0-0.2) Sodium Level 148 mmol/L (136-145) 144 mmol/L (136-145) Potassium Level 3.5 mmol/L (3.5-5.1) 3.5 mmol/L (3.5-5.1) Chloride Level 107 mmol/L (98-107) 107 mmol/L (98-107) Carbon Dioxide Level 27 mmol/L (21-32) 30 mmol/L (21-32) Anion Gap 14 (6-14) 7 (6-14) Blood Urea Nitrogen 13 mg/dL (8-26) 13 mg/dL (8-26) Creatinine 1.2 mg/dL (0.7-1.3) 1.1 mg/dL (0.7-1.3) Estimated GFR (Cockcroft-Gault) 68.1 75.3 Glucose Level 87 mg/dL (70-99) 86 mg/dL (70-99) Calcium Level 8.5 mg/dL (8.5-10.1) 8.3 mg/dL (8.5-10.1) Valproic Acid (Depakene) Level 94 mcg/mL (50-100) Valproic Acid Last Dose Date [id number] Valproic Acid Last Dose Time 2100 Laboratory Tests Test 07/29/17 04:10 White Blood Count 7.4 x10^3/uL (4.0-11.0) Red Blood Count 4.34 x10^6/uL (4.30-5.70) Hemoglobin 12.9 g/dL (13.0-17.5) Hematocrit 38.6 % (39.0-53.0) Mean Corpuscular Volume 89 fL (79-100) Mean Corpuscular Hemoglobin 30 pg (25-35) Mean Corpuscular Hemoglobin Concent 33 g/dL (31-37) Red Cell Distribution Width 15.2 % (11.5-14.5) Platelet Count 160 x10^3/uL (140-400) Neutrophils (%) (Auto) 56 % (31-73) Lymphocytes (%) (Auto) 29 % (24-48) Monocytes (%) (Auto) 13 % (0-9) Eosinophils (%) (Auto) 1 % (0-3) Basophils (%) (Auto) 0 % (0-3) Neutrophils # (Auto) 4.1 x10^3uL (1.8-7.7) Lymphocytes # (Auto) 2.2 x10^3/uL (1.0-4.8) Monocytes # (Auto) 1.0 x10^3/uL (0.0-1.1) Eosinophils # (Auto) 0.1 x10^3/uL (0.0-0.7) Basophils # (Auto) 0.0 x10^3/uL (0.0-0.2) Sodium Level 144 mmol/L (136-145) Potassium Level 3.5 mmol/L (3.5-5.1) Chloride Level 107 mmol/L (98-107) Carbon Dioxide Level 30 mmol/L (21-32) Anion Gap 7 (6-14) Blood Urea Nitrogen 13 mg/dL (8-26) Creatinine 1.1 mg/dL (0.7-1.3) Estimated GFR (Cockcroft-Gault) 75.3 Glucose Level 86 mg/dL (70-99) Calcium Level 8.3 mg/dL (8.5-10.1) Medications Current Medications Sodium Chloride (Normal Saline Flush) 10 ml QSHIFT PRN IV AFTER MEDS AND BLOOD DRAWS Last administered on 07/26/17 18:16; Start 07/26/17 at 18:15 Levetiracetam 1000 mg/Sodium Chloride 110 ml @ 440 mls/hr 1X ONCE IV Last administered on 07/26/17 18:16; Start 07/26/17 at 18:15; Stop 07/26/17 at 18:29 ; Status DC Fosphenytoin Sodium 1360 mg/ Sodium Chloride 77.2 ml @ 308.8 mls/ hr 1X ONCE IV Last administered on 07/26/17 19:47; Start 07/26/17 at 19:30; Stop at 19:44; Status DC Ondansetron HCl (Zofran) 4 mg PRN Q8HRS PRN IV NAUSEA/VOMITING Last administered on 07/26/17 20:58; Start 07/26/17 at 20:00; Stop 07/26/17 at 21:15 ; Status DC Morphine Sulfate 2 mg PRN Q2HR PRN IV PAIN Last administered on 07/26/17 20:59 ; Start 07/26/17 at 20:00; Stop 07/27/17 at 07:46; Status DC Sodium Chloride 1,000 ml @ 75 mls/hr [id number] IV Last administered on 11:15; Start 07/26/17 at 21:00; Stop 07/28/17 at 09:32; Status DC Acetaminophen (Tylenol) 650 mg PRN Q6HRS PRN PO FEVER; Start 07/26/17 at 21:15 Ondansetron HCl (Zofran) 4 mg PRN Q6HRS PRN IV NAUSEA/VOMITING Last administered on 07/28/17 04:40; Start 07/26/17 at 21:15 Morphine Sulfate 2 mg PRN Q2HR PRN IV PAIN Last administered on 07/28/17 20:12 ; Start 07/26/17 at 21:15 Tramadol HCl (Ultram) 50 mg PRN Q6HRS PRN PO PAIN; Start 07/26/17 at 21:15; Stop 07/26/17 at 22:17; Status DC Hydralazine HCl (Apresoline) 10 mg PRN Q4HRS PRN IVP ELEVATED BP, SEE COMMENTS ; Start 07/26/17 at 21:15 Docusate Sodium (Colace) 100 mg PRN DAILY PRN PO CONSTIPATION; Start 07/26/17 at 21:15 Lorazepam (Ativan) 2 mg PRN Q4HRS PRN IV ANXIETY / AGITATION Last administered on 07/28/17 03:17; Start 07/26/17 at 21:15 Sumatriptan Succinate (Imitrex) 6 mg 1X ONCE SQ Last administered on 22:48; Start 07/26/17 at 22:30; Stop 07/26/17 at 22:31; Status DC Lacosamide (Vimpat) 50 mg BID PO Last administered on 07/28/17 09:12; Start 07/26/17 at 22:30; Stop 07/28/17 at 13:42; Status DC Levetiracetam (Keppra) 1,500 mg BID PO Last administered on 07/29/17 08:23; Start 07/26/17 at 22:30 Divalproex Sodium (Depakote Er) 1,500 mg BID PO Last administered on 08:24; Start 07/26/17 at 22:30 Sertraline HCl (Zoloft) 100 mg DAILY PO Last administered on 07/27/17 08:46; Start 07/27/17 at 09:00; Stop 07/27/17 at 11:33; Status DC Acetaminophen/ Hydrocodone Bitart (Lortab 5/325) 2 tab PRN Q4HRS PRN PO PAIN Last administered on 07/29/17 10:59; Start 07/27/17 at 11:15 Sertraline HCl (Zoloft) 50 mg DAILY PO Last administered on 07/29/17 08:23; Start 07/28/17 at 09:00 Enoxaparin Sodium (Lovenox 40mg Syringe) 40 mg Q24H SQ Last administered on 15:24; Start 07/27/17 at 13:00 Temazepam (Restoril) 7.5 mg PRN QHS PRN PO INSOMNIA Last administered on 20:34; Start 07/27/17 at 20:30 Sodium Chloride 1,000 ml @ 75 mls/hr [id number] IV Last administered on 10:57; Start 07/28/17 at 09:45 Diazepam (Valium) 10 mg DAILY PO Last administered on 07/29/17 08:23; Start 07/28/17 at 10:00 Lacosamide (Vimpat) 100 mg BID PO Last administered on 07/29/17 08:23; Start 07/28/17 at 21:00; Stop 07/29/17 at 12:57; Status DC Lacosamide (Vimpat) 50 mg BID PO ; Start 07/29/17 at 21:00 Active Scripts Active Depakote Er (Divalproex Sodium) 500 Mg Tab.er.24h 1,500 Mg PO BID Reported Levetiracetam 500 Mg Tablet 1,500 Mg PO BID Sertraline Hcl 100 Mg Tablet 100 Mg PO DAILY Diazepam 10 Mg Tablet 10 Mg PO DAILY Vitals/I & O Vital Sign - Last 24 Hours 07/28/17 07/28/17 07/28/17 07/28/17 15:00 16:00 16:00 17:00 Temp 98.7 98.7 Pulse 78 76 84 Resp 18 16 18 B/P (MAP) 112/59 (76) 135/73 (93) 131/77 (95) Pulse Ox 94 94 98 O2 Delivery Room Air Room Air Room Air Room Air 07/28/17 07/28/17 07/28/17 07/28/17 18:00 19:00 19:52 20:01 Temp 99.8 99.8 Pulse 100 103 102 Resp 16 18 18 B/P (MAP) 136/72 (93) 114/73 (87) 117/71 (86) Pulse Ox 97 96 94 O2 Delivery Room Air Room Air Room Air Room Air 07/28/17 07/28/17 07/28/17 07/28/17 20:12 20:50 21:00 22:00 Pulse 94 92 Resp 18 16 18 18 B/P (MAP) 105/65 (78) 105/63 (77) Pulse Ox 95 94 94 O2 Delivery Room Air Room Air Room Air Room Air 07/28/17 07/29/17 07/29/17 07/29/17 23:00 00:00 00:00 00:01 Temp 100.1 100.1 Pulse 86 98 Resp 18 18 B/P (MAP) 114/71 (85) 102/69 (80) Pulse Ox 93 91 O2 Delivery Room Air Room Air Room Air 07/29/17 07/29/17 07/29/17 07/29/17 01:00 02:07 03:05 04:00 Temp 99.0 99.0 Pulse 96 103 88 83 Resp 18 18 18 18 B/P (MAP) 101/54 (70) 91/53 (66) 90/49 (63) 90/53 (65) Pulse Ox 91 93 90 93 O2 Delivery Room Air Room Air Room Air Room Air 07/29/17 07/29/17 07/29/17 07/29/17 04:00 05:00 06:03 07:00 Pulse 76 74 82 Resp 18 18 14 B/P (MAP) 99/62 (74) 96/57 (70) 114/66 (82) Pulse Ox 94 94 93 O2 Delivery Room Air Room Air Room Air Room Air 07/29/17 07/29/17 07/29/17 07/29/17 08:00 08:20 09:00 10:00 Temp 98.6 98.6 Pulse 79 69 98 Resp 14 14 18 B/P (MAP) 100/63 (75) 102/66 (78) 114/74 (87) Pulse Ox 93 95 96 O2 Delivery Room Air Room Air Room Air Room Air 07/29/17 07/29/17 10:59 11:00 Pulse 93 Resp 18 18 B/P (MAP) 125/76 (92) Pulse Ox 93 94 O2 Delivery Room Air Room Air Intake and Output 07/29/17 07/29/17 07/30/17 15:00 23:00 07:00 Intake Total 360 ml Output Total 500 ml Balance -140 ml RON RAYMOND MD Jul 29, 2017 13:09
[2017-07-29] MEDS: ENOXAPARIN 40 MG/0.4 ML SYRINGE. SQ SCH (13:31)
--- NOTE | 2017-07-29 18:34 | PDOC ---
PROGRESS NOTES Assessment Assessment Seizure. 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 Hx of PTSD RECOMMENDATIONS/PLAN: Continue Keppra 1500 mg bid. Continue Depakote 1500 mg bid. Tapering off Vimpat. EEG on 07/29/17: Normal. No epileptiform discharges. Past Medical History Cardiovascular: No pertinent hx Pulmonary: No pertinent hx CENTRAL NERVOUS SYSTEM: Seizure, Other GI: Other Psych: Anxiety, Depression, Other Past Surgical History Appendectomy, Cholecystectomy, Other Additional Past Surgical Histo: L ankle, Bairiatric surgery-sleeve Past Surgical History: Other Family History Hypertension Social History Smoke: No ALCOHOL: none Drugs: None He stays home not working. ALLERGY: Reviewed. MEDICATIONS: Refer to [facility] REVIEW OF SYSTEMS: Constitutional: No malnutrition, weight loss, cachexia. Head: Hx of traumatic head injury. Skin: No edema, or rash. Ear: No infection. Eyes: No vision loss, or diplopia. Nose: No bleeding or purulent discharges. Hearing: No hearing decrease. Neck: No recent injury. Cardiac: No DE, arrhythmia Pulmonary: No CPOD. GI: No GI Ulcer, GI bleeding Urinary/genital: No dysuria, incontinence, urinary retention. Endocrine: No cousin face, craniofacial dysmorphism, polydactyly. Skeletomuscular: No muscular atrophy, deformity. Neurological: see HP. Psychiatric: Denies drug use/abuse. Otherwise, not [id number] review of systems. PHYSICAL EXAMINATION: General appearance in no acute distress. HEENT: Normocephalic and nontraumatic. Eyes, nose, ears, and throat are unremarkable. Neck is supple. No lymphadenopathy. No bruits are heard over the carotid artery. No Crepitus. Cardiovascular: S1, S2, regular rate and rhythm. Pulmonary: Clear to auscultation bilaterally. Abdomen: Bowel sounds are positive. Abdomen is soft, nontender, and nondistended. Extremities: No rash, lesions, or edema. No restriction of range of motion NEUROLOGICAL EXAMINATION: Sleeping but arousable. Oriented to time, place and person. PERRL. EOMI. CN: no focal findings. Muscle tone: within normal. Muscle strength: 5 DTR: 2 Plantar reflex: Flexor response bilaterally Gait: not examined in bed. Sensory exam: no abnormal findings. No acute cerebellar signs elicited. Objective Objective Vital Signs Date Time Temp Pulse Resp B/P (MAP) Pulse Ox O2 Delivery O2 Flow Rate FiO2 10/10/17 16:05 98.0 80 18 120/77 (91) 94 Room Air 98.0 Intake and Output 07/30/17 07:00 Intake Total 1130 ml Output Total 500 ml Balance 630 ml Intake Oral 360 ml IV Total 770 ml Output Urine Total 500 ml # Voids 2 # Bowel Movements 2 Vitals Signs Vitals VS - Last 72 Hours, by Label Date Time Temp Pulse Resp B/P (MAP) Pulse Ox O2 Delivery O2 Flow Rate FiO2 07/29/17 16:05 98.0 80 18 120/77 (91) 94 Room Air 98.0 07/29/17 12:00 16 94 Room Air 07/29/17 11:01 98.4 98.4 07/29/17 11:00 93 18 125/76 (92) 94 Room Air 07/29/17 10:59 18 93 Room Air 07/29/17 10:00 98 18 114/74 (87) 96 Room Air 07/29/17 09:00 98.6 69 14 102/66 (78) 95 Room Air 98.6 07/29/17 08:20 Room Air 07/29/17 08:00 79 14 100/63 (75) 93 Room Air 07/29/17 07:00 82 14 114/66 (82) 93 Room Air 07/29/17 06:03 74 18 96/57 (70) 94 Room Air 07/29/17 05:00 76 18 99/62 (74) 94 Room Air 07/29/17 04:00 Room Air 07/29/17 04:00 99.0 83 18 90/53 (65) 93 Room Air 99.0 07/29/17 03:05 88 18 90/49 (63) 90 Room Air 07/29/17 02:07 103 18 91/53 (66) 93 Room Air 07/29/17 01:00 96 18 101/54 (70) 91 Room Air 07/29/17 00:01 100.1 100.1 07/29/17 00:00 Room Air 07/29/17 00:00 98 18 102/69 (80) 91 Room Air 07/28/17 23:00 86 18 114/71 (85) 93 Room Air 07/28/17 22:00 92 18 105/63 (77) 94 Room Air 07/28/17 21:00 94 18 105/65 (78) 94 Room Air 07/28/17 20:50 16 Room Air 07/28/17 20:12 18 95 Room Air 07/28/17 20:01 102 18 117/71 (86) 94 Room Air 07/28/17 19:52 Room Air 07/28/17 19:00 99.8 103 18 114/73 (87) 96 Room Air 99.8 07/28/17 18:00 100 16 136/72 (93) 97 Room Air 07/28/17 17:00 84 18 131/77 (95) 98 Room Air 07/28/17 16:00 Room Air 07/28/17 16:00 98.7 76 16 135/73 (93) 94 Room Air 98.7 07/28/17 15:00 78 18 112/59 (76) 94 Room Air 07/28/17 13:00 88 18 110/73 (85) 93 Room Air 07/28/17 12:00 98.9 96 16 93/63 (73) 92 Room Air 98.9 07/28/17 12:00 Room Air 07/28/17 11:00 96 13 105/64 (78) 95 Room Air 07/28/17 10:00 102 15 119/71 (87) 92 Room Air 07/28/17 09:00 88 23 134/85 (101) 96 Room Air 07/28/17 08:00 Room Air 07/28/17 08:00 98.8 82 28 116/73 (87) 93 Room Air 98.8 07/28/17 07:00 72 21 117/71 (86) 93 Room Air Laboratory Laboratory Laboratory Tests Test 07/29/17 04:10 White Blood Count 7.4 x10^3/uL (4.0-11.0) Red Blood Count 4.34 x10^6/uL (4.30-5.70) Hemoglobin 12.9 g/dL (13.0-17.5) Hematocrit 38.6 % (39.0-53.0) Mean Corpuscular Volume 89 fL (79-100) Mean Corpuscular Hemoglobin 30 pg (25-35) Mean Corpuscular Hemoglobin Concent 33 g/dL (31-37) Red Cell Distribution Width 15.2 % (11.5-14.5) Platelet Count 160 x10^3/uL (140-400) Neutrophils (%) (Auto) 56 % (31-73) Lymphocytes (%) (Auto) 29 % (24-48) Monocytes (%) (Auto) 13 % (0-9) Eosinophils (%) (Auto) 1 % (0-3) Basophils (%) (Auto) 0 % (0-3) Neutrophils # (Auto) 4.1 x10^3uL (1.8-7.7) Lymphocytes # (Auto) 2.2 x10^3/uL (1.0-4.8) Monocytes # (Auto) 1.0 x10^3/uL (0.0-1.1) Eosinophils # (Auto) 0.1 x10^3/uL (0.0-0.7) Basophils # (Auto) 0.0 x10^3/uL (0.0-0.2) Sodium Level 144 mmol/L (136-145) Potassium Level 3.5 mmol/L (3.5-5.1) Chloride Level 107 mmol/L (98-107) Carbon Dioxide Level 30 mmol/L (21-32) Anion Gap 7 (6-14) Blood Urea Nitrogen 13 mg/dL (8-26) Creatinine 1.1 mg/dL (0.7-1.3) Estimated GFR (Cockcroft-Gault) 75.3 Glucose Level 86 mg/dL (70-99) Calcium Level 8.3 mg/dL (8.5-10.1) Medication Medications Current Medications Lacosamide (Vimpat) 50 mg BID PO ; Start 07/29/17 at 21:00 Lacosamide (Vimpat) 100 mg BID PO Last administered on 07/29/17t 08:23; Start 07/28/17 at 21:00; Stop 07/29/17 at 12:57; Status DC Comment Review of Relevant I have reviewed the following items maycol (where applicable) has been applied. ANDREW WELCH MD Jul 29, 2017 18:34
[2017-07-30 03:38] VITALS: BP 88/56
[2017-07-30 05:14] LABS: BASO % 1 % (0-3); EOS % 3 % (0-3); HEMATOCRIT 39.8 % (39.0-53.0); HEMOGLOBIN 13.2 g/dL (13.0-17.5); LYMPH # 2.8 x10^3/uL (1.0-4.8); LYMPH % 42 % (24-48); MEAN CORPUSCULAR HEMOGLOBIN 30 pg (25-35); MEAN CORPUSCULAR HGB CONC 33 g/dL (31-37); MEAN CORPUSCULAR VOLUME 90 fL (79-100); MONO % 14 % (0-9); NEUT % 41 % (31-73); PLATELET COUNT 155 x10^3/uL (140-400); RED BLOOD COUNT 4.45 x10^6/uL (4.30-5.70); RED CELL DISTRIBUTION WIDTH 15.3 % (11.5-14.5); WHITE BLOOD COUNT 6.9 x10^3/uL (4.0-11.0)
[2017-07-30 05:41] LABS: CALCIUM 8.4 mg/dL (8.5-10.1); GFR 84.1; POTASSIUM 3.3 mmol/L (3.5-5.1)
[2017-07-30 08:15] VITALS: BP 101/62
[2017-07-30] MEDS: levETIRAcetam 500 MG TABLET PO SCH (08:42)
[2017-07-30] MEDS: DIVALPROEX EXTENDED RELEASE 500 MG TAB.ER.24H. PO SCH (08:42)
[2017-07-30] MEDS: diazePAM 5 MG TABLET PO SCH (08:42)
[2017-07-30] MEDS: SERTRALINE 50 MG TABLET. PO SCH (08:42)
[2017-07-30] MEDS: LACOSAMIDE 50 MG TABLET PO SCH (08:43)
[2017-07-30 11:00] VITALS: BP 117/84
[2017-07-30] MEDS: ENOXAPARIN 40 MG/0.4 ML SYRINGE. SQ SCH (13:00)
[2017-07-30] MEDS ORDERED: LORA-434 PO (13:31)
--- NOTE | 2017-07-30 16:38 | PDOC ---
PROGRESS NOTES Assessment Assessment Seizure or seizure like episodes. Non-epileptic seizures combined likely. Hx of PTSD RECOMMENDATIONS/PLAN: Continue Keppra 1500 mg bid. Continue Depakote 1500 mg bid. Tapering off Vimpat. EEG on 07/29/17: Normal. No epileptiform discharges. No seizures since on the floor. Past Medical History Cardiovascular: No pertinent hx Pulmonary: No pertinent hx CENTRAL NERVOUS SYSTEM: Seizure, Other GI: Other Psych: Anxiety, Depression, Other Past Surgical History Appendectomy, Cholecystectomy, Other Additional Past Surgical Histo: L ankle, Bariatric surgery-sleeve Past Surgical History: Other Family History Hypertension Social History Smoke: No ALCOHOL: none Drugs: None He stays home not working. ALLERGY: Reviewed. MEDICATIONS: Refer to [facility] REVIEW OF SYSTEMS: Constitutional: No malnutrition, weight loss, cachexia. Head: Hx of traumatic head injury. Skin: No edema, or rash. Ear: No infection. Eyes: No vision loss, or diplopia. Nose: No bleeding or purulent discharges. Hearing: No hearing decrease. Neck: No recent injury. Cardiac: No [place], arrhythmia Pulmonary: No CPOD. GI: No GI Ulcer, GI bleeding Urinary/genital: No dysuria, incontinence, urinary retention. Endocrine: No cousin face, craniofacial dysmorphism, polydactyly. Skeletomuscular: No muscular atrophy, deformity. Neurological: see HP. Psychiatric: Denies drug use/abuse. Otherwise, not [id number] review of systems. PHYSICAL EXAMINATION: General appearance in no acute distress. HEENT: Normocephalic and nontraumatic. Eyes, nose, ears, and throat are unremarkable. Neck is supple. No lymphadenopathy. No bruits are heard over the carotid artery. No Crepitus. Cardiovascular: S1, S2, regular rate and rhythm. Pulmonary: Clear to auscultation bilaterally. Abdomen: Bowel sounds are positive. Abdomen is soft, nontender, and nondistended. Extremities: No rash, lesions, or edema. No restriction of range of motion NEUROLOGICAL EXAMINATION: Sleeping but arousable. Oriented to time, place and person. PERRL. EOMI. CN: no focal findings. Muscle tone: within normal. Muscle strength: 5 DTR: 2 Plantar reflex: Flexor response bilaterally Gait: not examined in bed. Sensory exam: no abnormal findings. No acute cerebellar signs elicited. Objective Objective Vital Signs Date Time Temp Pulse Resp B/P (MAP) Pulse Ox O2 Delivery O2 Flow Rate FiO2 07/30/17 11:00 97.7 100 18 117/84 (95) 96 Room Air 97.7 Vitals Signs Vitals VS - Last 72 Hours, by Label Date Time Temp Pulse Resp B/P (MAP) Pulse Ox O2 Delivery O2 Flow Rate FiO2 07/30/17 11:00 97.7 100 18 117/84 (95) 96 Room Air 97.7 07/30/17 08:15 97.7 72 18 101/62 (75) 92 Room Air 97.7 07/30/17 03:38 98.4 78 18 88/56 (67) 93 Room Air 98.4 07/29/17 23:37 98.6 88 16 106/67 (80) 93 Room Air 98.6 07/29/17 20:00 Room Air 07/29/17 19:20 98.4 82 18 119/83 (95) 92 Room Air 98.4 07/29/17 16:05 98.0 80 18 120/77 (91) 94 Room Air 98.0 07/29/17 12:00 16 94 Room Air 07/29/17 11:01 98.4 98.4 07/29/17 11:00 93 18 125/76 (92) 94 Room Air 07/29/17 10:59 18 93 Room Air 07/29/17 10:00 98 18 114/74 (87) 96 Room Air 07/29/17 09:00 98.6 69 14 102/66 (78) 95 Room Air 98.6 07/29/17 08:20 Room Air 07/29/17 08:00 79 14 100/63 (75) 93 Room Air 07/29/17 07:00 82 14 114/66 (82) 93 Room Air Laboratory Laboratory Laboratory Tests Test 07/30/17 04:25 White Blood Count 6.9 x10^3/uL (4.0-11.0) Red Blood Count 4.45 x10^6/uL (4.30-5.70) Hemoglobin 13.2 g/dL (13.0-17.5) Hematocrit 39.8 % (39.0-53.0) Mean Corpuscular Volume 90 fL (79-100) Mean Corpuscular Hemoglobin 30 pg (25-35) Mean Corpuscular Hemoglobin Concent 33 g/dL (31-37) Red Cell Distribution Width 15.3 % (11.5-14.5) Platelet Count 155 x10^3/uL (140-400) Neutrophils (%) (Auto) 41 % (31-73) Lymphocytes (%) (Auto) 42 % (24-48) Monocytes (%) (Auto) 14 % (0-9) Eosinophils (%) (Auto) 3 % (0-3) Basophils (%) (Auto) 1 % (0-3) Neutrophils # (Auto) 2.8 x10^3uL (1.8-7.7) Lymphocytes # (Auto) 2.8 x10^3/uL (1.0-4.8) Monocytes # (Auto) 1.0 x10^3/uL (0.0-1.1) Eosinophils # (Auto) 0.2 x10^3/uL (0.0-0.7) Basophils # (Auto) 0.0 x10^3/uL (0.0-0.2) Sodium Level 143 mmol/L (136-145) Potassium Level 3.3 mmol/L (3.5-5.1) Chloride Level 106 mmol/L (98-107) Carbon Dioxide Level 30 mmol/L (21-32) Anion Gap 7 (6-14) Blood Urea Nitrogen 14 mg/dL (8-26) Creatinine 1.0 mg/dL (0.7-1.3) Estimated GFR (Cockcroft-Gault) 84.1 Glucose Level 114 mg/dL (70-99) Calcium Level 8.4 mg/dL (8.5-10.1) Medication Medications Current Medications Divalproex Sodium (Depakote Er) 1,000 mg BID PO Last administered on 08:42; Start 07/29/17 at 21:00 Lacosamide (Vimpat) 50 mg BID PO Last administered on 07/30/17 08:43; Start 07/29/17 at 21:00 Comment Review of Relevant I have reviewed the following items maycol (where applicable) has been applied. ANDREW WELCH MD Jul 30, 2017 16:38
== END 2017-07-30 13:45 | disposition home or self-care (01) | DRG 101 ==
LOC: ER 17:50 → 1 WEST ICU 19:23 → 4 NORTH 07-29 15:41
PROVIDERS: ADMIT Internal Medicine; ATTEND Internal Medicine
DX: G40.919 Epilepsy, unspecified, intractable, without status epilepticus (principal); E87.2 Acidosis; E87.0 Hyperosmolality and hypernatremia; F05 Delirium due to known physiological condition; F43.10 Post-traumatic stress disorder, unspecified; E86.0 Dehydration; F41.9 Anxiety disorder, unspecified; R25.1 Tremor, unspecified; H53.149 Visual discomfort, unspecified; R20.8 Other disturbances of skin sensation; D72.829 Elevated white blood cell count, unspecified; R41.3 Other amnesia; F32.9 Major depressive disorder, single episode, unspecified; G43.909 Migraine, unspecified, not intractable, without status migrainosus; H54.62 Unqualified visual loss, left eye, normal vision right eye; Z79.899 Other long term (current) drug therapy; Z90.49 Acquired absence of other specified parts of digestive tract; Z88.8 Allergy status to other drugs, medicaments and biological substances; Z82.49 Family history of ischemic heart disease and other diseases of the circulatory system; Z87.820 Personal history of traumatic brain injury
CPT/HCPCS: 36415; 70450; 80048; 80076; 80156; 80164; 80177; 80185; 80307; 82553; 83605; 85007; 85025; 85610; 85730; 87641; 93005; 95816; 96365; 96375; J1650; J1953; J2060; J2270; J2405; J3030; J7030; Q2009; 99285-25; G0479

== ENCOUNTER 2017-11-06 11:50 | Emergency (ER) | payer MEDICARE, OTHER ==
[2017-11-06] MEDS: OXYMETAZOLINE 0.05% NASAL SPRAY 30ML BOTTLE. NS (12:33)
== END 2017-11-06 13:10 | disposition home or self-care (01) ==
LOC: ER 11:50
DX: R04.0 Epistaxis (principal); G43.909 Migraine, unspecified, not intractable, without status migrainosus; F43.10 Post-traumatic stress disorder, unspecified; Z88.8 Allergy status to other drugs, medicaments and biological substances
CPT/HCPCS: 99283

== ENCOUNTER → 2018-01-15 | Outpatient (CLI) | payer MEDICARE, OTHER | END | disposition home or self-care (01) | LOC: KCIC CT 15:05 | DX: S99.921D Unspecified injury of right foot, subsequent encounter (principal); X58.XXXD Exposure to other specified factors, subsequent encounter | CPT/HCPCS: 73700 ==

== ENCOUNTER → 2018-01-15 | Outpatient (CLI) | payer MEDICARE, OTHER | END | disposition home or self-care (01) | LOC: KCIC 15:29 | DX: Z87.01 Personal history of pneumonia (recurrent) (principal) | CPT/HCPCS: 71046 ==

== ENCOUNTER → 2018-05-01 | Outpatient (CLI) | payer MEDICARE, OTHER | END | disposition home or self-care (01) | LOC: KCIC US 13:10 | DX: M79.601 Pain in right arm (principal) | CPT/HCPCS: 93971 ==

== ENCOUNTER 2019-01-04 13:57 | Emergency (ER) | payer MEDICARE, OTHER ==
[~2019-01-04] VITALS: Ht 170.2 cm; Wt 88.5 kg
[~2019-01-04 13:57] MED LIST changes: +DIVA-53 PO; -DIVA500T9 PO; +LEVE500T6 PO; -LEVE750T13 PO; +LEVE750T23 PO; +LORA-434 PO
[2019-01-04 15:36] LABS: BASO % 0 % (0-3); EOS # 0.1 x10^3/uL (0.0-0.7); EOS % 1 % (0-3); HEMATOCRIT 44.2 % (39.0-53.0); HEMOGLOBIN 14.4 g/dL (13.0-17.5); LYMPH # 3.3 x10^3/uL (1.0-4.8); LYMPH % 42 % (24-48); MEAN CORPUSCULAR HEMOGLOBIN 29 pg (25-35); MEAN CORPUSCULAR HGB CONC 33 g/dL (31-37); MEAN CORPUSCULAR VOLUME 89 fL (79-100); MONO # 0.5 x10^3/uL (0.0-1.1); MONO % 7 % (0-9); NEUT % 50 % (31-73); PLATELET COUNT 200 x10^3/uL (140-400); RED BLOOD COUNT 4.99 x10^6/uL (4.30-5.70); RED CELL DISTRIBUTION WIDTH 15.3 % (11.5-14.5)
[2019-01-04 15:45] LABS: CALCIUM 8.5 mg/dL (8.5-10.1); CREATININE 0.9 mg/dL (0.7-1.3); GFR 93.9; POTASSIUM 3.6 mmol/L (3.5-5.1)
[2019-01-04] MEDS ORDERED: IBUPROFEN 400 MG TABLET. PO ONE (15:45)
[2019-01-04 15:52] LABS: ALBUMIN 3.5 g/dL (3.4-5.0); ALBUMIN/GLOBULIN RATIO 0.9 (1.0-1.7); TOTAL BILIRUBIN 0.2 mg/dL (0.2-1.0); TOTAL PROTEIN 7.3 g/dL (6.4-8.2)
[2019-01-04] MEDS ORDERED: IV NORMAL SALINE 1000ML BAG 1,000 ML IV ONE (16:00)
[2019-01-04 17:38] VITALS: BP 127/88
--- NOTE | 2019-01-04 17:40 | PHYS DOC ---
Past Medical History Past Medical History: Anxiety, Depression, Migraines, Seizure, Other Additional Past Medical Histor: TBI,PTSD,BLIND IN LEFT EYE,MIGRALEPSY Past Surgical History: Appendectomy, Cholecystectomy, Other Additional Past Surgical Histo: L)ankle, Bairiatric surgery-sleeve Alcohol Use: None Drug Use: None Adult General Chief Complaint Chief Complaint: SEIZURE HPI HPI Patient is a 38 year old male who presents with a seizure today. 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 The patient states that he had a seizure while at a movie theater. This incident eyes tend to this round of seizure activity. He states that he was at a testing [facility] today for pulmonary function tests and began to have auras. He did take a dose of Valium which helped control the seizure activity. He was brought to the emergency department. He states that he is still having some slight auras. He has been taking his seizure medications as directed. Review of Systems Review of Systems Constitutional: Denies fever or chills [] Eyes: Denies change in visual acuity, redness, or eye pain [] HENT: Denies nasal congestion or sore throat [] Respiratory: Denies cough or shortness of breath [] Cardiovascular: No additional information not addressed in HPI [] GI: Denies abdominal pain, nausea, vomiting, bloody stools or diarrhea [] : Denies dysuria or hematuria [] Musculoskeletal: Denies back pain or joint pain [] Integument: Denies rash or skin lesions [] Neurologic: See history of present illness Endocrine: Denies polyuria or polydipsia [] All other systems were reviewed and found to be within normal limits, except as documented in this note. Current Medications Current Medications Current Medications Medications (Trade) Dose Ordered Sig/Vilma Start Time Stop Time Status Last Admin Dose Admin Ibuprofen (Motrin) 800 mg 1X ONCE 01/04/19 15:45 01/04/19 15:46 DC 01/04/19 16:16 800 MG Lorazepam (Ativan) 2 mg 1X ONCE 01/04/19 16:15 01/04/19 16:16 DC 01/04/19 16:44 2 MG Sodium Chloride 1,000 ml @ 1,000 mls/hr 1X ONCE 01/04/19 16:00 01/04/19 16:59 DC 01/04/19 16:16 1,000 MLS/HR Allergies Allergies Allergies Coded Allergies Type Severity Reaction Last Updated Verified venlafaxine Allergy Severe Seizures 10/31/16 Yes bupropion Allergy Intermediate seizures 11/06/17 Yes Physical Exam Physical Exam Constitutional: Well developed, well nourished, no acute distress, non-toxic appearance. [] HENT: Normocephalic, atraumatic, bilateral external ears normal, oropharynx moist, no oral exudates, nose normal. [] Eyes: PERRLA, EOMI, conjunctiva normal, no discharge. [] Neck: Normal range of motion, no tenderness, supple, no stridor. [] Cardiovascular:Heart rate regular rhythm, no murmur [] Lungs & Thorax: Bilateral breath sounds clear to auscultation [] Abdomen: Bowel sounds normal, soft, no tenderness, no masses, no pulsatile masses. [] Skin: Warm, dry, no erythema, no rash. [] Back: No tenderness, no CVA tenderness. [] Extremities: No tenderness, no cyanosis, no clubbing, ROM intact, no edema. [] Neurologic: Alert and oriented X 3, normal motor function, normal sensory function, no focal deficits noted, cranial nerves II through XII are grossly intact. [] Psychologic: Affect normal, judgement normal, mood normal. [] Current Patient Data Vital Signs Vital Signs Date Time Temp Pulse Resp B/P (MAP) Pulse Ox O2 Delivery O2 Flow Rate FiO2 01/04/19 16:08 95 16 98 01/04/19 14:30 97.5 122/80 (94) Room Air 97.5 Lab Values Laboratory Tests Test 01/04/19 15:23 White Blood Count 8.0 x10^3/uL (4.0-11.0) Red Blood Count 4.99 x10^6/uL (4.30-5.70) Hemoglobin 14.4 g/dL (13.0-17.5) Hematocrit 44.2 % (39.0-53.0) Mean Corpuscular Volume 89 fL (79-100) Mean Corpuscular Hemoglobin 29 pg (25-35) Mean Corpuscular Hemoglobin Concent 33 g/dL (31-37) Red Cell Distribution Width 15.3 % (11.5-14.5) H Platelet Count 200 x10^3/uL (140-400) Neutrophils (%) (Auto) 50 % (31-73) Lymphocytes (%) (Auto) 42 % (24-48) Monocytes (%) (Auto) 7 % (0-9) Eosinophils (%) (Auto) 1 % (0-3) Basophils (%) (Auto) 0 % (0-3) Neutrophils # (Auto) 4.0 x10^3uL (1.8-7.7) Lymphocytes # (Auto) 3.3 x10^3/uL (1.0-4.8) Monocytes # (Auto) 0.5 x10^3/uL (0.0-1.1) Eosinophils # (Auto) 0.1 x10^3/uL (0.0-0.7) Basophils # (Auto) 0.0 x10^3/uL (0.0-0.2) Sodium Level 145 mmol/L (136-145) Potassium Level 3.6 mmol/L (3.5-5.1) Chloride Level 106 mmol/L (98-107) Carbon Dioxide Level 25 mmol/L (21-32) Anion Gap 14 (6-14) Blood Urea Nitrogen 13 mg/dL (8-26) Creatinine 0.9 mg/dL (0.7-1.3) Estimated GFR (Cockcroft-Gault) 93.9 BUN/Creatinine Ratio 14 (6-20) Glucose Level 87 mg/dL (70-99) Calcium Level 8.5 mg/dL (8.5-10.1) Total Bilirubin 0.2 mg/dL (0.2-1.0) Aspartate Amino Transferase (AST) 28 U/L (15-37) Alanine Aminotransferase (ALT) 45 U/L (16-63) Alkaline Phosphatase 70 U/L (46-116) Total Protein 7.3 g/dL (6.4-8.2) Albumin 3.5 g/dL (3.4-5.0) Albumin/Globulin Ratio 0.9 (1.0-1.7) L Laboratory Tests 01/04/19 15:23 Laboratory Tests 01/04/19 15:23 EKG EKG [] Radiology/Procedures Radiology/Procedures [] Course & Med Decision Making Course & Med Decision Making Pertinent Labs and Imaging studies reviewed. (See chart for details) []The patient was given 2 mg of Ativan in the emergency Department as well as a liter of fluids. He was given 800 mg of ibuprofen for a headache. The patient is declining admission and prefers to be at home. He will return to the emergency department via EMS if needed. Dragon Disclaimer Dragon Disclaimer This electronic medical record was generated, in whole or in part, using a voice recognition dictation system. Departure Departure Impression: Primary Impression: Seizure Additional Impression: Headache Disposition: HOME, SELF-CARE Condition: STABLE Referrals: DAHIANA MONROY MD (PCP) Patient Instructions: Seizure, Adult Additional Instructions: Take your home medications as directed. Follow-up with your primary care provider for recheck within 48 hours. If worsening return to the emergency department. Problem Qualifiers DEEPTI CHOWDHURY APRN Jan 04, 2019 17:40
== END 2019-01-04 17:53 | disposition home or self-care (01) ==
LOC: ER 13:57
DX: G40.909 Epilepsy, unspecified, not intractable, without status epilepticus (principal); R51 Headache; G43.909 Migraine, unspecified, not intractable, without status migrainosus; F32.9 Major depressive disorder, single episode, unspecified; F41.9 Anxiety disorder, unspecified; Z87.820 Personal history of traumatic brain injury; Z88.8 Allergy status to other drugs, medicaments and biological substances
CPT/HCPCS: 36415; 80053; 85025; 96374; 99284; J2060; J7030

== ENCOUNTER → 2019-01-13 | Outpatient (CLI) | payer MEDICARE, OTHER ==
[2019-01-04 17:38] VITALS: BP 127/88
--- NOTE | 2019-01-13 10:50 | CARD ---
MR#: [id number] Date of Study: 01/13/2019 Ordering Physician: OSCAR LORENZANA, Referring Physician: OSCAR LORENZANA, Tech: Lin Marquez APPROVED REPORT EXAM: Two-dimensional and M-mode echocardiogram with Doppler and color Doppler. Other Information Quality : GoodHR: 96bpm INDICATION Dyspnea 2D DIMENSIONS RVDd2.8 (2.9-3.5cm)Left Atrium(2D)3.2 (1.6-4.0cm) IVSd1.0 (0.7-1.1cm)Aortic Root(2D)3.2 (2.0-3.7cm) LVDd5.1 (3.9-5.9cm)LVOT Diameter2.4 (1.8-2.4cm) PWd0.9 (0.7-1.1cm)LVDs2.9 (2.5-4.0cm) FS (%) 43.0 %SV90.1 ml LVEF(%)73.9 (>50%) Aortic Valve AoV Peak René.109.5cm/sAoV VTI18.9cm AO Peak GR.4.8mmHgLVOT Peak René.86.8cm/s LVOT VTI 16.13cmAO Mean GR.3mmHg JAMESON (VMAX)2.69dh4CHM (VTI)3.98cm2 Mitral Valve MV E Jpqfklld90.3cm/sMV DECEL TJVK110ar MV A Waxusytm62.3cm/sMV SIM75ym E/A Ratio0.7MVA (PHT)3.66cm2 TDI E/Lateral E'6.4E/Medial E'6.4 Pulmonary Valve PV Peak Isigteys478.8cm/sPV Peak Grad.5mmHg Tricuspid Valve RAP [id number] Pulmonary Vein S1 Gocnejse50.4cm/sD2 Bnulutjh56.6cm/s PVa [id number] LEFT VENTRICLE The left ventricle is normal size. There is normal left ventricular wall thickness. The left ventricu lar systolic function is normal. The Ejection Fraction is 60%. There is normal LV segmental wall manisha on. Transmitral Doppler flow pattern is Grade I-abnormal relaxation pattern. RIGHT VENTRICLE The right ventricle is normal size. There is normal right ventricular wall thickness. The right ventr icular systolic function is normal. ATRIA The left atrium size is normal. The right atrium size is normal. The interatrial septum is intact wit h no evidence for an atrial septal defect or patent foramen ovale as noted on 2-D or Doppler imaging. AORTIC VALVE The aortic valve is normal in structure and function. Doppler and Color Flow revealed no significant aortic regurgitation. There is no significant aortic valvular stenosis. MITRAL VALVE The mitral valve is normal in structure and function. There is no evidence of mitral valve prolapse. There is no mitral valve stenosis. Doppler and Color Flow revealed no mitral valve regurgitation note d. TRICUSPID VALVE The tricuspid valve is normal in structure and function. Doppler and Color Flow revealed no tricuspid valve regurgitation noted. There is no tricuspid valve prolapse or vegetation. There is no tricuspid valve stenosis. PULMONIC VALVE The pulmonic valve is not well visualized. Doppler and Color Flow revealed no pulmonic valvular regur gitation. GREAT VESSELS The aortic root is normal in size. The IVC is normal in size and collapses >50% with inspiration. PERICARDIAL EFFUSION There is no evidence of significant pericardial effusion. Critical Notification Critical Value: No <Conclusion> The left ventricular systolic function is normal. The Ejection Fraction is 60%. There is normal LV segmental wall motion. Transmitral Doppler flow pattern is Grade I-abnormal relaxation pattern. No significant valvular abnormalities. There is no evidence of significant pericardial effusion. Signed by : Romaine Stone, Electronically Approved : 01/13/2019 10:50:32
== END | disposition home or self-care (01) ==
LOC: ECHO 09:25
PROVIDERS: ATTEND Internal Medicine Pulmonary Disease
DX: R06.02 Shortness of breath (principal); R06.00 Dyspnea, unspecified
CPT/HCPCS: 93306

== ENCOUNTER → 2019-02-01 | Outpatient (CLI) | payer MEDICARE, OTHER ==
[2019-01-04 17:38] VITALS: BP 127/88
[~2019-02-01] MED LIST changes: +ZOLPIDEM 5 MG TABLET. ONE; +ZOLPIDEM 5 MG TABLET. PO ONE
--- NOTE | 2019-02-02 12:55 | SLEEP ---
DATE OF STUDY: 02/01/2019 ATTENDING PHYSICIAN: Dr. Sanju Rizzo. REFERRING PHYSICIAN: Dr. Oscar Joy. The patient is a 38-year-old who weighs 200 pounds with a BMI of 30. The patient's [place] score was 8. The patient has a history of sleep apnea based on his study 7 years ago, but has lost 50 pounds since then. The details of that study was not available. The patient underwent another sleep study at [facility], was a diagnostic study. During the night study, the patient spent 421 minutes in bed and slept for 375 minutes with a sleep efficiency of 89%. Sleep latency was 44 minutes with a REM latency of 104 minutes. Overall, sleep architecture showed normal stage 1 sleep, increased stage 2 sleep, absent N3 sleep and normal REM sleep. During the night study, the patient had 4 obstructive apneas, 2 mixed apneas, 1 central apnea and 43 hypopneas. The patient's apnea hypopnea index was 8 per hour with a supine index of 12 per hour and a REM index of 22 per hour. PLMs were seen at an index of 5 per hour and 2 per hour caused EEG arousals. EKG monitoring revealed an average heart rate of 79 beats per minute. No sustained arrhythmias were observed. Mean oxygen saturation was 96% with lowest of 88%. Only 0.4% of time, oxygen saturation remained between 80% and 89%. Due to low AHI, the patient did not meet the split night criteria for CPAP initiation. IMPRESSION: 1. Mild sleep apnea-hypopnea syndrome with moderate increase during rapid eye movement sleep. 2. No clinically significant periodic limb movements. 3. No clinically significant nocturnal hypoxia. RECOMMENDATIONS: 1. The patient has only mild sleep apnea. I would recommend further weight loss to ideal body weight as an initial form of treatment. ( Per history some 50 Lb wt loss recently) 2. If the patient remains symptomatic despite effective weight loss, then consider treatment of sleep apnea with either oral appliance or a trial of CPAP. 3. Avoid BIOMETRIC TECHNICIAN depressants. 4. Caution regarding driving until symptoms of sleep apnea resolve with the above recommendations. AUDI ALMANZAR MD DR: JOAN/sarah JOB#: [id number] / [id number] OSCAR Heath MD, STEPHEN MD MTDD
== END | disposition home or self-care (01) ==
LOC: SLPLAB 20:00
PROVIDERS: ATTEND Internal Medicine Pulmonary Disease
DX: G47.33 Obstructive sleep apnea (adult) (pediatric) (principal); Z86.69 Personal history of other diseases of the nervous system and sense organs
CPT/HCPCS: 95810

== ENCOUNTER → 2019-06-02 | Outpatient (CLI) | payer MEDICARE, OTHER ==
[~2019-06-02] MED LIST changes: -ZOLPIDEM 5 MG TABLET. ONE; -ZOLPIDEM 5 MG TABLET. PO ONE
--- NOTE | 2019-06-02 15:08 | KCIC ---
Examination: MRI of the right upper arm HISTORY: History of biceps muscle tear, fall COMPARISON: None available TECHNIQUE: Multiplanar, multisequence MR imaging of the right upper arm was performed FINDINGS: The long head of the biceps tendon appears to be within the bicipital groove. The visualized biceps muscle proximally and in the midportion grossly appears unremarkable. The distal aspect of the biceps muscle in the upper arm evaluation is limited as it is not included on the images. Partially visualized elbow joint demonstrates a small effusion. On the sagittal images anterior to the elbow joint, there is subtle increased T2 signal which could be an effusion or bicipital radial bursal fluid however tendon pathology cannot be completely excluded. These are not completely included on the images. Mild fatty atrophic changes of the teres minor muscle. IMPRESSION: 1. No evidence of biceps muscle tear or proximal long head of the biceps tendon tear identified. The evaluation of the distal biceps tendon is limited. Recommend elbow MRI for evaluation of the distal biceps tendon. Electronically signed by: Costa Suarez MD (06/02/2019 3:05 PM) [facility]
== END | disposition home or self-care (01) ==
LOC: KCIC MRI 12:31
PROVIDERS: ATTEND Family Medicine
DX: M25.421 Effusion, right elbow (principal); M62.521 Muscle wasting and atrophy, not elsewhere classified, right upper arm
CPT/HCPCS: 73218

== ENCOUNTER → 2019-06-16 | Outpatient (CLI) | payer MEDICARE, OTHER ==
--- NOTE | 2019-06-16 14:04 | KCIC ---
MR of the right elbow HISTORY: Pain, limited mobility, evaluate distal biceps tendon. TECHNIQUE: Routine multiplanar sequences are obtained. FINDINGS: Biceps tendon insertion is not completely included on the axial images, but is completely included on the coronal and sagittal images. The distal biceps tendon is intact. Brachialis tendon is intact. Triceps tendon intact. Common flexor tendon and ulnar collateral ligament are intact. Common extensor tendon and lateral collateral ligament complex are intact. No significant joint effusion. Small fluid collection anterior to the radial head and radial capitellar joint measuring 15 mm diameter compatible with a small cyst or ganglion. No bone destruction. No acute fracture. Muscle tissue appears intact. IMPRESSION: 1. No evidence of distal biceps tendon disruption. 2. Small cyst or ganglion anterior to the radial head. Electronically signed by: Dano Ramirez MD (06/16/2019 2:01 PM) [facility]
== END | disposition home or self-care (01) ==
LOC: KCIC MRI 10:10
PROVIDERS: ATTEND Family Medicine
DX: S46.111A Strain of muscle, fascia and tendon of long head of biceps, right arm, initial encounter (principal); X58.XXXA Exposure to other specified factors, initial encounter; Y93.89 Activity, other specified; Y92.89 Other specified places as the place of occurrence of the external cause; Y99.8 Other external cause status
CPT/HCPCS: 73221

== ENCOUNTER 2019-11-13 12:03 | Emergency (ER) | payer MEDICARE, OTHER ==
[~2019-11-13] VITALS: Ht 170.2 cm; Wt 200.0 kg
[2019-11-13 14:10] LABS: BASO # 0.1 x10^3/uL (0.0-0.2); BASO % 1 % (0-3); EOS # 0.2 x10^3/uL (0.0-0.7); EOS % 2 % (0-3); HEMATOCRIT 41.6 % (39.0-53.0); HEMOGLOBIN 13.8 g/dL (13.0-17.5); LYMPH # 2.8 x10^3/uL (1.0-4.8); LYMPH % 33 % (24-48); MEAN CORPUSCULAR HEMOGLOBIN 28 pg (25-35); MEAN CORPUSCULAR HGB CONC 33 g/dL (31-37); MEAN CORPUSCULAR VOLUME 83 fL (79-100); MONO # 0.6 x10^3/uL (0.0-1.1); MONO % 7 % (0-9); NEUT # 4.8 x10^3/uL (1.8-7.7); NEUT % 57 % (31-73); PLATELET COUNT 246 x10^3/uL (140-400); RED BLOOD COUNT 4.98 x10^6/uL (4.30-5.70); RED CELL DISTRIBUTION WIDTH 16.1 % (11.5-14.5); WHITE BLOOD COUNT 8.4 x10^3/uL (4.0-11.0)
[2019-11-13] MEDS ORDERED: IV NORMAL SALINE 1000ML BAG 1,000 ML IV ONE (14:15)
[2019-11-13] MEDS ORDERED: diphenhydrAMINE 50 MG/ML VIAL IVP ONE (14:15)
[2019-11-13] MEDS ORDERED: ONDANSETRON PF 4 MG/2 ML VIAL. IVP ONE (14:15)
[2019-11-13 14:18] LABS: CALCIUM 8.6 mg/dL (8.5-10.1); CREATININE 0.9 mg/dL (0.7-1.3); GFR 93.5; MAGNESIUM 1.9 mg/dL (1.8-2.4); POTASSIUM 3.7 mmol/L (3.5-5.1)
--- NOTE | 2019-11-13 14:35 | RAD ---
CT HEAD WO CONTRAST History: Head trauma. Pain. Prior TBI. Comparison: July 28, 2017 Technique: Noncontrast CT imaging was performed of the head. Exposure: One or more of the following individualized dose reduction techniques were utilized for this examination: 1. Automated exposure control 2. Adjustment of the mA and/or kV according to patient size 3. Use of iterative reconstruction technique. Findings: No intracranial hemorrhage. No mass effect. No hydrocephalus. Extra-axial spaces are unremarkable. Imaged orbits are unremarkable. Right maxillary sinus mucous retention cyst or polyp. Mastoid air cells are clear. No acute calvarial fracture. Impression: 1. No acute intracranial abnormality. Electronically signed by: Bubba Chaudhari DO (11/13/2019 2:32 PM) [facility]
[2019-11-13 15:00] VITALS: BP 128/88
--- NOTE | 2019-11-13 15:05 | PHYS DOC ---
Past Medical History Past Medical History: Anxiety, Depression, Migraines, Seizure, Other Additional Past Medical Histor: TBI,PTSD,BLIND IN LEFT EYE,MIGRALEPSY Past Surgical History: Appendectomy, Cholecystectomy, Other Additional Past Surgical Histo: L)ankle, Bairiatric surgery-sleeve Alcohol Use: None Drug Use: None Adult General Chief Complaint Chief Complaint: MECHANICAL FALL HPI HPI Patient is a 39 year old male who presents with head pain following fall. Patient reports he had tripped over some bicycles at home earlier today, striking his head on the floor. States he does have a history of prior TBI, several years ago, and he has always been very cautious with this. Does report some increased photophobia recently, however he frequently does have this when he has headache symptoms. States he does not remember having the headache prior to this. Family member reports patient seemed to have auscultation and's for about 5-10 seconds, afterwards patient was little confused, can't return to normal shortly afterwards. Patient also had one episode of emesis following this fall. Denies any neck pain, back pain, extremity pain, denies any seizure activity. Review of Systems Review of Systems Constitutional: Denies fever or chills [] Eyes: Denies change in visual acuity, redness, or eye pain does report photophobia [] Respiratory: Denies cough or shortness of breath [] Cardiovascular: No additional information not addressed in HPI [] GI: Denies abdominal pain, nausea, vomiting, bloody stools or diarrhea [] : Denies dysuria or hematuria [] Musculoskeletal: Denies back pain or joint pain denies neck pain.[] Integument: Denies rash or skin lesions [] Neurologic: Denies headache, focal weakness or sensory changes [] Endocrine: Denies polyuria or polydipsia [] All other systems were reviewed and found to be within normal limits, except as documented in this note. Current Medications Current Medications Current Medications Medications (Trade) Dose Ordered Sig/Vilma Start Time Stop Time Status Last Admin Dose Admin Diphenhydramine HCl (Benadryl) 25 mg 1X ONCE 11/13/19 14:15 11/13/19 14:16 DC 11/13/19 14:15 25 MG Ondansetron HCl (Zofran) 4 mg 1X ONCE 11/13/19 14:15 11/13/19 14:16 DC 11/13/19 14:16 4 MG Sodium Chloride 1,000 ml @ 1,000 mls/hr 1X ONCE 11/13/19 14:15 11/13/19 15:14 11/13/19 14:15 1,000 MLS/HR Allergies Allergies Allergies Coded Allergies Type Severity Reaction Last Updated Verified venlafaxine Allergy Severe Seizures 10/31/16 Yes bupropion Allergy Intermediate seizures 11/06/17 Yes Physical Exam Physical Exam Constitutional: Well developed, well nourished, no acute distress, non-toxic appearance. [] HENT: Normocephalic, atraumatic, bilateral external ears normal, oropharynx moist, no oral exudates, nose normal. [] Eyes: PERRLA, EOMI, conjunctiva normal, no discharge. [] Neck: Normal range of motion, no tenderness, supple, no stridor. No deformity palpated, patient full range of motion[] Cardiovascular:Heart rate regular rhythm, no murmur [] Lungs & Thorax: Bilateral breath sounds clear to auscultation [] Abdomen: Bowel sounds normal, soft, no tenderness, no masses, no pulsatile masses. [] Skin: Warm, dry, no erythema, no rash. [] Back: No tenderness, no CVA tenderness. [] Extremities: No tenderness, no cyanosis, no clubbing, ROM intact, no edema. [] Neurologic: Alert and oriented X 3, normal motor function, normal sensory function, no focal deficits noted. [] Psychologic: Affect normal, judgement normal, mood normal. [] Current Patient Data Vital Signs Vital Signs Date Time Temp Pulse Resp B/P (MAP) Pulse Ox O2 Delivery O2 Flow Rate FiO2 11/13/19 12:40 97.5 64 16 131/81 (98) 99 Room Air 97.5 Lab Values Laboratory Tests Test 11/13/19 14:00 White Blood Count 8.4 x10^3/uL (4.0-11.0) Red Blood Count 4.98 x10^6/uL (4.30-5.70) Hemoglobin 13.8 g/dL (13.0-17.5) Hematocrit 41.6 % (39.0-53.0) Mean Corpuscular Volume 83 fL (79-100) Mean Corpuscular Hemoglobin 28 pg (25-35) Mean Corpuscular Hemoglobin Concent 33 g/dL (31-37) Red Cell Distribution Width 16.1 % (11.5-14.5) H Platelet Count 246 x10^3/uL (140-400) Neutrophils (%) (Auto) 57 % (31-73) Lymphocytes (%) (Auto) 33 % (24-48) Monocytes (%) (Auto) 7 % (0-9) Eosinophils (%) (Auto) 2 % (0-3) Basophils (%) (Auto) 1 % (0-3) Neutrophils # (Auto) 4.8 x10^3/uL (1.8-7.7) Lymphocytes # (Auto) 2.8 x10^3/uL (1.0-4.8) Monocytes # (Auto) 0.6 x10^3/uL (0.0-1.1) Eosinophils # (Auto) 0.2 x10^3/uL (0.0-0.7) Basophils # (Auto) 0.1 x10^3/uL (0.0-0.2) Sodium Level 144 mmol/L (136-145) Potassium Level 3.7 mmol/L (3.5-5.1) Chloride Level 107 mmol/L (98-107) Carbon Dioxide Level 26 mmol/L (21-32) Anion Gap 11 (6-14) Blood Urea Nitrogen 17 mg/dL (8-26) Creatinine 0.9 mg/dL (0.7-1.3) Estimated GFR (Cockcroft-Gault) 93.5 Glucose Level 81 mg/dL (70-99) Calcium Level 8.6 mg/dL (8.5-10.1) Magnesium Level 1.9 mg/dL (1.8-2.4) Laboratory Tests 11/13/19 14:00 Laboratory Tests 11/13/19 14:00 EKG EKG [] Radiology/Procedures Radiology/Procedures []istory: Head trauma. Pain. Prior TBI. Comparison: July 28, 2017 Technique: Noncontrast CT imaging was performed of the head. Exposure: One or more of the following individualized dose reduction techniques were utilized for this examination: 1. Automated exposure control 2. Adjustment of the mA and/or kV according to patient size 3. Use of iterative reconstruction technique. Findings: No intracranial hemorrhage. No mass effect. No hydrocephalus. Extra-axial spaces are unremarkable. Imaged orbits are unremarkable. Right maxillary sinus mucous retention cyst or polyp. Mastoid air cells are clear. No acute calvarial fracture. Impression: 1. No acute intracranial abnormality. Electronically signed by: Bubba Chaudhari DO (11/13/2019 2:32 PM) [facility] Course & Med Decision Making Course & Med Decision Making Pertinent Labs and Imaging studies reviewed. (See chart for details) Reports he is feeling better following medication administration. Patient reports he feels good enough to go home at this time. [] Dragon Disclaimer Dragon Disclaimer This electronic medical record was generated, in whole or in part, using a voice recognition dictation system. Departure Departure Impression: Primary Impression: Fall Additional Impression: Headache Disposition: 01 HOME, SELF-CARE Condition: STABLE Referrals: UNKNOWN PCP NAME (PCP) Patient Instructions: Migraine Headache, [id number] Additional Instructions: As we discussed, try to give yourself a few days to rest your brain without highly stimulating activities. Continue to take your home medications as prescribed. You may use tylenol or ibuprofen for discomfort. You were given Benadryl in the ER today. Please follow up with your primary care provider as needed. Problem Qualifiers Primary Impression: Fall Encounter type: initial encounter Qualified Codes: W19.XXXA - Unspecified fall, initial encounter Additional Impression: Headache Headache type: post-traumatic Headache chronicity pattern: acute headache Intractability: not intractable Qualified Codes: G44.319 - Acute post- traumatic headache, not intractable CARLOTTA ORELLANA APRN Nov 13, 2019 15:05
== END 2019-11-13 15:09 | disposition home or self-care (01) ==
LOC: ER 12:03
DX: G44.319 Acute post-traumatic headache, not intractable (principal); F32.9 Major depressive disorder, single episode, unspecified; G43.909 Migraine, unspecified, not intractable, without status migrainosus; F41.9 Anxiety disorder, unspecified; R41.0 Disorientation, unspecified; W18.09XA Striking against other object with subsequent fall, initial encounter; Y93.89 Activity, other specified; Y92.89 Other specified places as the place of occurrence of the external cause; Y99.8 Other external cause status
CPT/HCPCS: 36415; 70450; 80048; 83735; 85025; 96361; 96374; 96375; 99285; J1200; J2405; J7030

== ENCOUNTER 2019-12-14 11:00 | Emergency (ER) | payer MEDICARE, OTHER ==
[~2019-12-14] VITALS: Ht 165.1 cm; Wt 91.0 kg
[2019-12-14] MEDS ORDERED: IV NORMAL SALINE 1000ML BAG 1,000 ML IV ONE (11:30)
[2019-12-14 11:34] LABS: CALCIUM 8.9 mg/dL (8.5-10.1); CREATININE 1.2 mg/dL (0.7-1.3); GFR 67.1; POTASSIUM 4.1 mmol/L (3.5-5.1)
[2019-12-14 11:43] LABS: PHENY 2.9 mcg/mL (10.0-20.0)
[2019-12-14] MEDS ORDERED: RISP1TAB10 PO (11:47)
[2019-12-14] MEDS ORDERED: FOSPHENYTOIN 500 MG in IV NORMAL SALINE 50ML 50 ML IV ONE (12:00)
--- NOTE | 2019-12-14 12:08 | PHYS DOC ---
Past Medical History Past Medical History: Anxiety, Depression, Migraines, Seizure, Other Additional Past Medical Histor: TBI,PTSD,BLIND IN LEFT EYE,MIGRALEPSY Past Surgical History: Appendectomy, Cholecystectomy, Other Additional Past Surgical Histo: L)ankle, Bairiatric surgery-sleeve Smoking Status: Never Smoker Alcohol Use: None Drug Use: None Adult General Chief Complaint Chief Complaint: SEIZURE HPI HPI Patient is a 39 year old M BIBA SEIZURE Occurred in the 's presence started off as a petite male in the left arm this is typical he had an PETIT MAL FIRST THEN A witnessed tonic-clonic seizure he says he sometimes misses his afternoon dose of Dilantin the specific 100 3 times a day is also on another new or seizure agent BEVRA HE TELLS ME he can't take Depakote or Keppra anymore due to SIDE EFFECTS. 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 Review of Systems Review of Systems Constitutional: Denies fever or chills [] Eyes: Denies change in visual acuity, redness, or eye pain [] HENT: Denies nasal congestion or sore throat [] Respiratory: Denies cough or shortness of breath [] Cardiovascular: No additional information not addressed in HPI [] GI: Denies abdominal pain, nausea, vomiting, bloody stools or diarrhea [] : Denies dysuria or hematuria [] Musculoskeletal: Denies back pain or joint pain [] Integument: Denies rash or skin lesions [] Neurologic: Denies headache, focal weakness or sensory changes [] Endocrine: Denies polyuria or polydipsia [] All other systems were reviewed and found to be within normal limits, except as documented in this note. Current Medications Current Medications Current Medications Medications (Trade) Dose Ordered Sig/Vilma Start Time Stop Time Status Last Admin Dose Admin Acetaminophen (Tylenol) 1,000 mg 1X ONCE 12/14/19 12:15 12/14/19 12:16 DC 12/14/19 12:39 1,000 MG Fosphenytoin Sodium 500 mg/ Sodium Chloride 60 ml @ 240 mls/hr 1X ONCE 12/14/19 12:00 12/14/19 12:14 DC 12/14/19 12:02 240 MLS/HR Lorazepam (Ativan Inj) 1 mg 1X ONCE 12/14/19 11:30 12/14/19 11:31 DC 12/14/19 11:10 1 MG Phenytoin Sodium (Dilantin) 100 mg 1X ONCE 12/14/19 12:30 12/14/19 12:31 DC 12/14/19 12:39 100 MG Sodium Chloride 1,000 ml @ 1,000 mls/hr 1X ONCE 12/14/19 11:30 12/14/19 12:29 DC 12/14/19 11:12 1,000 MLS/HR Allergies Allergies Allergies Coded Allergies Type Severity Reaction Last Updated Verified venlafaxine Allergy Severe Seizures 10/31/16 Yes bupropion Allergy Intermediate seizures 11/06/17 Yes Physical Exam Physical Exam Constitutional: Well developed, well nourished, no acute distress, non-toxic appearance. [] HENT: Normocephalic, atraumatic, bilateral external ears normal, oropharynx moist, no oral exudates, nose normal. [] Eyes: PERRLA, EOMI, conjunctiva normal, no discharge. [] Neck: Normal range of motion, no tenderness, supple, no stridor. [] Cardiovascular:Heart rate regular rhythm, no murmur [] Lungs & Thorax: Bilateral breath sounds clear to auscultation [] Abdomen: Bowel sounds normal, soft, no tenderness, no masses, no pulsatile masses. [] Skin: Warm, dry, no erythema, no rash. [] Back: No tenderness, no CVA tenderness. [] Extremities: No tenderness, no cyanosis, no clubbing, ROM intact, no edema. [] Neurologic: Alert and oriented X 3, normal motor function, normal sensory function, no focal deficits noted. [] PT EYES OPEN TO VOICE BUT THEN BECOMES MUCH MORE ALERT DURING ER VISIT Psychologic: Affect normal, judgement normal, mood normal. [] Current Patient Data Vital Signs Vital Signs Date Time Temp Pulse Resp B/P (MAP) Pulse Ox O2 Delivery O2 Flow Rate FiO2 12/14/19 11:02 99.0 91 20 116/78 (91) 98 Room Air 99.0 Lab Values Laboratory Tests Test 12/14/19 11:05 Sodium Level 144 mmol/L (136-145) Potassium Level 4.1 mmol/L (3.5-5.1) Chloride Level 109 mmol/L (98-107) H Carbon Dioxide Level 24 mmol/L (21-32) Anion Gap 11 (6-14) Blood Urea Nitrogen 19 mg/dL (8-26) Creatinine 1.2 mg/dL (0.7-1.3) Estimated GFR (Cockcroft-Gault) 67.1 Glucose Level 91 mg/dL (70-99) Calcium Level 8.9 mg/dL (8.5-10.1) Phenytoin (Dilantin) Level 2.9 mcg/mL (10.0-20.0) L Phenytoin Last Dose Date 12/13/19 Phenytoin Last Dose Time 2200 Laboratory Tests 12/14/19 11:05 EKG EKG [] Radiology/Procedures Radiology/Procedures [] Course & Med Decision Making Course & Med Decision Making Pertinent Labs and Imaging studies reviewed. (See chart for details) []PT DOES HAVE LOW DILANTIN LEVEL PROBALY DUE TO MISSED DOSES PT GOT THROUGH 400 MG OF FOSPHENY BUT HAD PARESTHESIAS SO THIS WAS STOPPED AND THEN I GAVE 100 PO DILANTIN RECOMMENDED SEE PRIMARY NEURO [place] FOR DOSING INSTRUCTIONS ENCOURAGED COMPLIANCE PT AMBULATORY TO BATHROOM. Dragon Disclaimer Dragon Disclaimer This electronic medical record was generated, in whole or in part, using a voice recognition dictation system. Departure Departure Impression: Primary Impression: Seizure Disposition: HOME, SELF-CARE Condition: STABLE Referrals: UNKNOWN PCP NAME (PCP) Patient Instructions: Seizure, Adult, [id number] Additional Instructions: DILANTIN LEVEL WAS 2.9 CALL NEUROLOGIST TOMORROW FOR DOSING SUGGESTIONS FERNANDO BOYLE MD Dec 14, 2019 12:08
[2019-12-14] MEDS ORDERED: ACETAMINOPHEN 500 MG TABLET PO ONE (12:15)
[2019-12-14] MEDS ORDERED: PHENYTOIN SODIUM EXTENDED 100 MG CAPSULE PO ONE (12:30)
[2019-12-14 12:31] VITALS: BP 96/53
--- NOTE | 2019-12-14 13:00 | EKG ---
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
== END 2019-12-14 12:50 | disposition home or self-care (01) ==
LOC: ER 11:00
DX: R56.9 Unspecified convulsions (principal); G43.909 Migraine, unspecified, not intractable, without status migrainosus; Z88.8 Allergy status to other drugs, medicaments and biological substances
CPT/HCPCS: 36415; 80048; 80185; 93005; 96374; 96375; 99284; J2060; J7030; Q2009; 96365